=== PATIENT | male | born 1950 | race Caucasian/White ===

== ENCOUNTER 2017-05-28 09:06 | Outpatient (CLI) | payer MEDICARE ==
--- NOTE | 2017-05-28 16:54 | Ultrasound Report ---
AORTA SCREENIN05/28/2017 CLINICAL INDICATION: Smoking history, screening. TECHNIQUE: Real-time sonographic images were performed by the tile professional through the aorta. Multiple containers sales representative static images were saved for review. FINDINGS: The abdominal aorta is normal in caliber, measuring 2.4 cm proximally, 1.9 cm in the mid portion, and 1.9 cm distally. The iliacs are normal in caliber. No free fluid is present. IMPRESSION: NO EVIDENCE OF ABDOMINAL AORTIC ANEURYSM. TD: 05/28/2017 12:10
== END 2017-05-28 09:07 | disposition home or self-care (01) ==
LOC: DI 09:06
PROVIDERS: ATTEND Physician Assistant
DX: Z87.891 Personal history of nicotine dependence (principal); Z13.89 Encounter for screening for other disorder
CPT/HCPCS: 76706

== ENCOUNTER 2017-06-16 08:04 | Outpatient (CLI) | payer MEDICARE | END 2017-06-16 08:05 | disposition home or self-care (01) | LOC: DI 08:04 | PROVIDERS: ATTEND Physician Assistant | DX: R06.09 Other forms of dyspnea (principal); R07.9 Chest pain, unspecified | CPT/HCPCS: 93306 ==

== ENCOUNTER 2021-04-10 15:26 | Outpatient (CLI) | payer MEDICARE | END 2021-04-10 15:27 | disposition critical access hospital (66) | LOC: EMS 15:26 | DX: R40.0 Somnolence (principal); R53.1 Weakness; R73.9 Hyperglycemia, unspecified; R50.9 Fever, unspecified; R06.9 Unspecified abnormalities of breathing; R14.0 Abdominal distension (gaseous) | CPT/HCPCS: A0425; A0427 ==

== ENCOUNTER 2021-04-10 15:44 | Inpatient (IN) | payer MEDICARE ==
[2021-04-10] MEDS ORDERED: ACETAMINOPHEN 325 MG TABLET PO STA (16:22)
[2021-04-10] MEDS ORDERED: SODIUM CHLORIDE 0.9% 1,000 ML IV STA ×3 (16:22→18:19)
--- NOTE | 2021-04-10 16:25 | ED Physician Documentation ---
History of Present Illness - Stated complaint Stated Complaint: GLF/ N/V/D - Chief complaint Chief Complaint: Fever - History obtained from History obtained from: Patient, EMS - History of Present Illness Timing: How many days ago (3) Pain level max: 0 Pain level now: 0 - Additonal information Additional information: Patient is a 70-year-old male who presents with fever for the past 3 days. He complains of generalized weakness today. He has not had his Covid vaccinations. Mild cough. No vomiting. He denies any diarrhea to me. He is a diabetic and his blood sugar was around 400 today. No abdominal pain, chest pain, headache, neck pain. Has not taken anything for the fever. Decreased appetite recently. Review of Systems Ten Systems: 10 systems reviewed and negative Constitutional: reports: Fever. denies: Chills Ears: denies: Ear pain Nose: denies: Rhinorrhea / runny nose, Congestion GI: denies: Nausea, Vomiting, Diarrhea Skin: denies: Rash Musculoskeletal: denies: Neck pain, Back pain PD PAST MEDICAL HISTORY - Past Medical History Past Medical History: Yes Endocrine/Autoimmune: Type 2 diabetes - Allergies Allergies/Adverse Reactions: Allergies Allergy/AdvReac Type Severity Reaction Status Date / Time No Known Drug Allergies Allergy Verified 04/10/21 15:59 - Living Situation Living Situation: reports: With family Living Arrangement: reports: At home - Social History Does the pt have substance abuse?: No - Family History Family history: reports: Non contributory PD ED PE NORMAL - Vitals Vital signs reviewed: Yes - General General: No acute distress, Well developed/nourished, Other (Patient is intermittently confused, slow to respond.) - HEENT HEENT: PERRL, Ears normal, Moist mucous membranes, Pharynx benign - Neck Neck: Supple, no meningeal sign - Cardiac Cardiac: RRR, Strong equal pulses - Respiratory Respiratory: No respiratory distress, Clear bilaterally - Abdomen Abdomen: Soft, Non tender, Non distended - Back Back: No CVA TTP, No spinal TTP - Derm Derm: Warm and dry - Extremities Extremities: No edema, Other (Slight erythema to the left 5th toe.) - Neuro Neuro: Other (Drowsy, mildly confused) - Psych Psych: Normal mood, Normal affect Results - Vitals Vitals: Vital Signs - 24 hr 04/10/21 04/10/21 04/10/21 15:52 16:00 16:50 Temperature 39.4 C H Heart Rate 110 H 109 H 105 H Respiratory 30 H 22 31 H Rate Blood Pressure 168/73 H 145/114 H 163/119 H O2 Saturation 98 97 98 04/10/21 04/10/21 04/10/21 17:00 17:30 18:30 Temperature 38.3 C H Heart Rate 108 H 92 97 Respiratory 20 31 H 27 H Rate Blood Pressure 148/98 H 156/78 H 126/53 L O2 Saturation 98 94 98 04/10/21 19:22 Temperature 38.8 C H Heart Rate Respiratory Rate Blood Pressure O2 Saturation Oxygen O2 Source Room air - Labs Labs: Laboratory Tests 04/10/21 04/10/21 04/10/21 16:09 16:09 16:09 WBC RBC Hgb Hct MCV MCH MCHC RDW Plt Count MPV Neut # (Auto) Lymph # (Auto) [place] # (Auto) Eos # (Auto) Baso # (Auto) Absolute Nucleated RBC Nucleated RBC % ESR 41 H PT INR APTT Sodium Potassium Chloride Carbon Dioxide Anion Gap BUN Creatinine Estimated GFR (MDRD) Glucose Lactic Acid Calcium Total Bilirubin AST ALT Alkaline Phosphatase C-Reactive Protein 15.2 H Total Protein Albumin Globulin Albumin/Globulin Ratio Lipase TSH 0.46 Urine Color Urine Clarity Urine pH Ur Specific [place] Urine Protein Urine Glucose (UA) Urine Ketones Urine Occult Blood Urine Nitrite Urine Bilirubin Urine Urobilinogen Ur Leukocyte Esterase Ur Microscopic Review Urine Culture Comments Nasal Adenovirus (PCR) Nasal B. parapertussis DNA (PCR) Nasal Coronavir 229E PCR Nasal Coronavir HKU1 PCR Nasal Coronavir NL63 PCR Nasal Coronavir OC43 PCR Nasal Enterovir/Rhinovir PCR Nasal Influenza B PCR Nasal Influenza A PCR Nasal Parainfluen 1 PCR Nasal Parainfluen 2 PCR Nasal Parainfluen 3 PCR Nasal Parainfluen 4 PCR Nasal RSV (PCR) Nasal B.pertussis DNA PCR Nasal C.pneumoniae (PCR) Dilshad Human Metapneumo PCR Nasal M.pneumoniae (PCR) Nasal SARS-CoV-2 (PCR) 04/10/21 04/10/21 04/10/21 16:19 16:19 16:19 WBC 10.4 RBC 4.22 L Hgb 13.5 L Hct 38.5 L MCV 91.2 MCH 32.0 H MCHC 35.1 RDW 12.4 Plt Count 126 L MPV 9.4 Neut # (Auto) 8.9 H Lymph # (Auto) 0.5 L [place] # (Auto) 0.7 Eos # (Auto) 0.2 Baso # (Auto) 0.0 Absolute Nucleated RBC 0.00 Nucleated RBC % 0.0 ESR PT 12.1 INR 1.1 APTT 28.5 Sodium 134 L Potassium 4.1 Chloride 98 L Carbon Dioxide 23 Anion Gap 13.0 BUN 16 Creatinine 1.0 Estimated GFR (MDRD) 74 L Glucose 462 H Lactic Acid Calcium 9.5 Total Bilirubin 0.9 AST 27 ALT 33 Alkaline Phosphatase 74 C-Reactive Protein Total Protein 7.0 Albumin 4.0 Globulin 3.0 Albumin/Globulin Ratio 1.3 Lipase 28 TSH Urine Color Urine Clarity Urine pH Ur Specific [place] Urine Protein Urine Glucose (UA) Urine Ketones Urine Occult Blood Urine Nitrite Urine Bilirubin Urine Urobilinogen Ur Leukocyte Esterase Ur Microscopic Review Urine Culture Comments Nasal Adenovirus (PCR) Nasal B. parapertussis DNA (PCR) Nasal Coronavir 229E PCR Nasal Coronavir HKU1 PCR Nasal Coronavir NL63 PCR Nasal Coronavir OC43 PCR Nasal Enterovir/Rhinovir PCR Nasal Influenza B PCR Nasal Influenza A PCR Nasal Parainfluen 1 PCR Nasal Parainfluen 2 PCR Nasal Parainfluen 3 PCR Nasal Parainfluen 4 PCR Nasal RSV (PCR) Nasal B.pertussis DNA PCR Nasal C.pneumoniae (PCR) Dilshad Human Metapneumo PCR Nasal M.pneumoniae (PCR) Nasal SARS-CoV-2 (PCR) 04/10/21 04/10/21 04/10/21 16:19 16:30 16:59 WBC RBC Hgb Hct MCV MCH MCHC RDW Plt Count MPV Neut # (Auto) Lymph # (Auto) [place] # (Auto) Eos # (Auto) Baso # (Auto) Absolute Nucleated RBC Nucleated RBC % ESR PT INR APTT Sodium Potassium Chloride Carbon Dioxide Anion Gap BUN Creatinine Estimated GFR (MDRD) Glucose Lactic Acid 2.1 Calcium Total Bilirubin AST ALT Alkaline Phosphatase C-Reactive Protein Total Protein Albumin Globulin Albumin/Globulin Ratio Lipase TSH Urine Color YELLOW Urine Clarity CLEAR Urine pH 6.0 Ur Specific [place] 1.015 Urine Protein NEGATIVE Urine Glucose (UA) >=1000 H Urine Ketones 15 H Urine Occult Blood TRACE-INTA Urine Nitrite NEGATIVE Urine Bilirubin NEGATIVE Urine Urobilinogen 0.2 (NORMAL) Ur Leukocyte Esterase NEGATIVE Ur Microscopic Review NOT INDICATED Urine Culture Comments NOT INDICATED Nasal Adenovirus (PCR) NOT DETECTED Nasal B. parapertussis DNA (PCR) NOT DETECTED Nasal Coronavir 229E PCR NOT DETECTED Nasal Coronavir HKU1 PCR NOT DETECTED Nasal Coronavir NL63 PCR NOT DETECTED Nasal Coronavir OC43 PCR NOT DETECTED Nasal Enterovir/Rhinovir PCR NOT DETECTED Nasal Influenza B PCR NOT DETECTED Nasal Influenza A PCR NOT DETECTED Nasal Parainfluen 1 PCR NOT DETECTED Nasal Parainfluen 2 PCR NOT DETECTED Nasal Parainfluen 3 PCR NOT DETECTED Nasal Parainfluen 4 PCR NOT DETECTED Nasal RSV (PCR) NOT DETECTED Nasal B.pertussis DNA PCR NOT DETECTED Nasal C.pneumoniae (PCR) NOT DETECTED Dilshad Human Metapneumo PCR NOT DETECTED Nasal M.pneumoniae (PCR) NOT DETECTED Nasal SARS-CoV-2 (PCR) NOT DETECTED - Rads (name of study) Chest x-ray Radiology: Final report received, EMP read contemporaneously, See rad report (Possible right infrahilar alveolar opacity versus bronchial vascular markings.) PD MEDICAL DECISION MAKING - ED course Complexity details: reviewed results, re-evaluated patient, considered differential, d/w patient ED course: Patient with fever of unclear etiology. Possible pneumonia. He was given oral antibiotics initially, but he is too weak to stand and continues to have confusion. Therefore we will place the patient in observation, give IV fluids and continue antibiotics. Discussed the case with Dr. Panchal, hospitalist who accepts. He request a CT scan of the chest, abdomen and pelvis. This was perfo rmed. Patient does have a slight cellulitis to the left 5th toe. Does not appear significant enough to be causing his systemic symptoms. Concern for potential bacteremia. Blood cultures drawn. Lactate normal. Covid test is negative. This document was made in part using voice recognition software. While efforts are made to proofread this document, sound alike and grammatical errors may occur. Departure - Departure Disposition: ED Place in Observation Clinical Impression: Hyperglycemia, Generalized weakness Pneumonia Qualifiers: Pneumonia type: due to unspecified organism Laterality: right Lung location: lower lobe of lung Qualified Code(s): J18.9 - Pneumonia, unspecified organism Fever Qualifiers: Fever type: unspecified Qualified Code(s): R50.9 - Fever, unspecified Condition: Stable Discharge Date/Time: 04/10/21 20:56
[2021-04-10 16:29] LABS: BASOPHILS % (AUTO) 0.3 %; EOSINOPHILS # (AUTO) 0.2 10^3/uL (0.0-0.7); EOSINOPHILS % (AUTO) 1.6 %; HCT - HEMATOCRIT 38.5 % (42.0-52.0); HGB - HEMOGLOBIN 13.5 g/dL (14.0-18.0); LYMPHOCYTES # (AUTO) 0.5 10^3/uL (1.5-3.5); LYMPHOCYTES % (AUTO) 4.8 %; MEAN CORPUSCULAR HGB CONC 35.1 g/dL (32.0-36.0); MEAN CORPUSCULAR VOLUME 91.2 fL (80.0-94.0); MEAN PLATELET VOLUME 9.4 fL (7.4-11.4); MONOCYTES # (AUTO) 0.7 10^3/uL (0.0-1.0); MONOCYTES % (AUTO) 6.8 %; NEUTROPHILS # (AUTO) 8.9 10^3/uL (1.5-6.6); NEUTROPHILS % (AUTO) 85.6 %; PLT - PLATELET COUNT 126 10^3/uL (130-450); RED BLOOD COUNT 4.22 10^6/uL (4.70-6.10); RED CELL DISTRIBUTION WIDTH 12.4 % (12.0-15.0); WHITE BLOOD COUNT 10.4 x10^3/uL (4.8-10.8)
[2021-04-10 16:34] LABS: INR 1.1 (0.8-1.2); PT - PROTHROMBIN TIME 12.1 secs (9.9-12.6)
[2021-04-10 16:34] LABS: BILIRUBIN,URINE NEGATIVE (NEGATIVE); GLUCOSE, URINE (UA) >=1000 mg/dL (NEGATIVE); KETONES,URINE (UA) 15 mg/dL (NEGATIVE); LEUKOCYTE ESTERASE, URINE NEGATIVE (NEGATIVE); NITRITE,URINE NEGATIVE (NEGATIVE); OCCULT BLOOD,URINE TRACE-INTA (NEGATIVE); PROTEIN,URINE NEGATIVE (NEGATIVE); UROBILINOGEN,URINE 0.2 (NORMAL) E.U./dL (NORMAL)
[2021-04-10 16:37] LABS: CLARITY,URINE CLEAR (CLEAR)
[2021-04-10 16:39] LABS: LACTIC ACID, VENOUS 2.1 mmol/L (0.5-2.2)
[2021-04-10 16:40] LABS: ALBUMIN/GLOBULIN RATIO 1.3 (1.0-2.2); BILIRUBIN,TOTAL 0.9 mg/dL (0.2-1.0); CALCIUM 9.5 mg/dL (8.5-10.3); POTASSIUM 4.1 mmol/L (3.5-5.0)
[2021-04-10 16:41] LABS: PARTIAL THROMBOPLASTIN TIME 28.5 secs (24.9-33.3)
--- NOTE | 2021-04-10 17:02 | XRAY Report ---
PROCEDURE: Chest 1 View X-Ray INDICATIONS: fever. weakness TECHNIQUE: One view of the chest was acquired. COMPARISON: None FINDINGS: Surgical changes and devices: None. Lungs and pleura: No pleural effusions or pneumothorax. Lungs demonstrate slight strandy interstiti al opacity in the right infrahilar area. Mediastinum: Mediastinal contours appear normal. Heart size is normal. Bones and chest wall: No suspicious bony lesions. Overlying soft tissues appear unremarkable. IMPRESSION: Possible right infrahilar alveolar opacity versus bronchial vascular markings. Correlate with auscult ative findings. Reviewed by: Purvi Pierre MD on 04/10/2021 5:01 PM PST Approved by: Purvi Pierre MD on 04/10/2021 5:01 PM PST Station ID: [id number]
[2021-04-10 18:11] LABS: B. PARAPERTUSSIS- RESP PCR PAN NOT DETECTED; B. PERTUSSIS- RESP PCR PANEL NOT DETECTED; C. PNEUMONIAE- RESP PCR PANEL NOT DETECTED; CORONAVIRUS 229E-RESP PCR NOT DETECTED; CORONAVIRUS HKU1-RESP PCR NOT DETECTED; CORONAVIRUS NL63-RESP PCR NOT DETECTED; CORONAVIRUS OC43-RESP PCR NOT DETECTED; HUMAN METAPNEUMOVIRUS NOT DETECTED; INFLUENZA A- RESP PCR PANEL NOT DETECTED; INFLUENZA B - RESP PCR PANEL NOT DETECTED; M. PNEUMONIAE- RESP PCR PANEL NOT DETECTED; PARAINFLUENZA VIRUS 1 NOT DETECTED; PARAINFLUENZA VIRUS 2 NOT DETECTED; PARAINFLUENZA VIRUS 3 NOT DETECTED; PARAINFLUENZA VIRUS 4 NOT DETECTED; RHINOVIRUS/ENTEROVIRUS NOT DETECTED; RSV- RESP PCR PANEL NOT DETECTED; SARS-CoV-2 -RESP PCR PANEL NOT DETECTED
[2021-04-10] MEDS ORDERED: INSULIN REGULAR HUMAN 100 UNIT/1 ML 10 ML MDV SUBQ STA (18:19)
[2021-04-10] MEDS ORDERED: DOXYCYCLINE 100 MG TABLET PO STA (18:49)
[2021-04-10] MEDS ORDERED: AMOX/CLAV 875 MG/125 MG TABLET PO STA (18:49)
[2021-04-10] MEDS ORDERED: ONDANSETRON 4 MG/2 ML VIAL IVP PRN (19:43)
[2021-04-10] MEDS ORDERED: SODIUM CHLORIDE FLUSH 0.9% 10 ML SYRINGE IVP PRN (19:43)
[2021-04-10] MEDS ORDERED: ONDANSETRON ODT 4 MG TABLET TL PRN (19:43)
--- NOTE | 2021-04-10 19:51 | HISTORY & PHYSICAL EXAMINATION ---
Chief Complaint - Chief Complaint Chief Complaint: Fever and weakness History of Present Illness - Admitted From Admitted From:: Home - History Obtained From Records Reviewed: [facility] History obtained from: Patient, Spouse, ER Physician, EMR Exam Limitations: Patient is confused and a poor historian. - History of Present Illness HPI Comment/Other: This is a 70-year-old male with a past medical history significant for type 2 diabetes mellitus who presents today due to weakness and fever. Most of the history is obtained from the patient's spouse as he is altered and unable to provide a meaningful history. She states he has had a wound over his left foot for months now that is being followed by wound care at [facility]. He was scheduled to see them again tomorrow but she noticed that he was becoming weaker over the past 2 days. She states he was himself yesterday but this morning he was quite weak and he slumped to the ground twice. She reports no injuries. She also noticed that he was confused today which is unusual. He is normally quite independent and active. She states he does have diabetes and his blood glucose normally is not very well controlled but the past few days it has been less than 250. He did not take any of his medications today. She reports no smoking or alcohol use. The patient denies shortness of breath, chest pain, abdominal pain, nausea, vomiting. In the emergency department, he was noted to be febrile, tachycardic, tachypneic but not hypoxic. Labs revealed thrombocytopenia but otherwise were unremarkable except for hyperglycemia. X-ray was concerning for possible infiltrate. Given the concern for infection, medicine was consulted for admission. I did discuss goals of care with the patient's spouse given he is altered. She states he has made it quite clear in the past that he is a DNR. History - Past Medical History Cardiovascular: reports: Hypertension Endocrine/Autoimmune: reports: Type 2 diabetes - Family & Social History Family History Comment/Other: Unable to obtain due to his altered mental status. Living arrangement: At home Living Situation: With spouse/s.o. Social History Notes: His reports no alcohol or smoking history. Meds/Allgy - Allergies Allergies/Adverse Reactions: Allergies Allergy/AdvReac Type Severity Reaction Status Date / Time No Known Drug Allergies Allergy Verified 04/10/21 15:59 Review of Systems - Constitutional Constitutional: reports: Fever, Weakness - Cardiovascular Cariovascular: denies: Chest pain - Respiratory Respiratory: denies: Cough, SOB at rest, SOB with exertion - Gastrointestinal Gastrointestinal: denies: Nausea, Vomiting - Musculoskeletal Musculoskeletal: denies: Limited range of motion - Neurological Neurological: reports: General weakness - All Other Systems All Other Systems: reports: Other (Review of systems is limited due to his altered mental status.) Prior Level of Functionality: He is independent with his ADL's. Exam - Vital Signs Reviewed Vital Signs: Yes Vital Signs: Vital Signs x48h Temp Pulse Resp BP Pulse Ox 04/10/21 18:30 38.3 C H 97 27 H 126/53 L 98 04/10/21 17:30 92 31 H 156/78 H 94 04/10/21 17:00 108 H 20 148/98 H 98 04/10/21 16:50 105 H 31 H 163/119 H 98 04/10/21 16:00 109 H 22 145/114 H 97 04/10/21 15:52 39.4 C H 110 H 30 H 168/73 H 98 - Physical Exam General Appearance: positive: Moderate distress, Other (Appears ill and uncomfortable. Occasional rigors and chills noted.) Eyes Bilateral: positive: Conjunctivae nml ENT: positive: Dry mucous membranes. negative: No signs of dehydration Neck: positive: Nml inspection. negative: Stiff neck Respiratory: positive: No respiratory distress, Other (Tachypnic.). negative: Wheezes, Rales Cardiovascular: positive: Tachycardia. negative: Irregularly irregular, Systolic murmur Abdomen: positive: Nml bowel sounds, Tenderness (Mild tenderness but difficult to assess given his mentation.). negative: Guarding, Rebound Skin: positive: Warm, Dry, Other (Mild erythema over left fifth pahlanx. No tenderness. Mild warmth.) Extremities: positive: No pedal edema Neurologic/Psychiatric: positive: Disoriented to time, Other (No focal deficits.). negative: Disoriented to person, Disoriented to place Conclusion/Plan - Problem List (1) Fever Conclusion/Plan: I am concerned for underlying sepsis given his fever, significant weakness, thrombocytopenia. He was also initially tachycardic and tachypneic. His blood pressure is stable and lactic acid is normal. The source of this is not clear. This may potentially be viral but we will need to rule out a bacterial source. Urinalysis is unremarkable. His chest x-ray was read as a possible right-sided infiltrate by radiology but clinically this appears to be less likely and his x- ray does not appear very impressive. We will start him empirically on vancomycin, cefepime, Flagyl IV given rigors and fever as high suspicion for bacteremia. We will check ESR and CRP. We will also order a CT of the chest as well as abdomen/pelvis to look for infection. Qualifiers: Fever type: unspecified Qualified Code(s): R50.9 - Fever, unspecified (2) Altered mental status Conclusion/Plan: This is likely secondary to underlying infection. He is oriented to self and location but is a poor historian and becomes quite fatigued and unable to provide any meaningful history. He does not have any focal deficits on exam. This is likely due to the underlying infection and I will treat him empirically with IV antibiotics. (3) Generalized weakness Conclusion/Plan: This is likely due to the underlying suspected illness given his fever and acute decline over the past few days. We will further evaluate the suspected infection as mentioned above. (4) Wound of left foot Conclusion/Plan: He obtains wound care at [facility] where he was scheduled to follow up tomorrow. Although the toe is erythematous, I do not believe this is the cause of his current infection as it is not very impressive overall. He will be on antibiotics empirically and we will order a foot x-ray for further evaluation. We will consider MRI if there is no other obvious source of infection. (5) Type 2 diabetes mellitus with hyperglycemia Conclusion/Plan: He is hyperglycemic with a blood glucose greater than 400. This is likely exacerbated by the suspected infection. No evidence of ketoacidosis. He received 5 units of subcutaneous insulin in the emergency department. We will give him 15 units of Lantus this evening and place him on 3 units of NovoLog with meals as well as sliding scale. Carb controlled diet. Check A1c in the morning. Qualifiers: Diabetes mellitus intermediate designer insulin use: without intermediate designer use Qualified Code(s): E11.65 - Type 2 diabetes mellitus with hyperglycemia - Lab Results Lab results reviewed: Yes Fish Bones: 04/11/21 05:53 04/11/21 05:53 - Diagnostic Imaging Results Diagnostic Imaging Results: positive: Final report reviewed Core Measures - Anticipated LOS I expect patient to be DC'd or transferred within 96 hours.: Yes - Issues Hospital Issues and Management Plan: 70-year-old male with type 2 diabetes mellitus who presents due to increasing weakness and fever will be admitted under observation for further work-up as the concern is for sepsis. - DVT/VTE - Prophylaxis VTE/DVT Device ordered at admit?: Yes VTE/DVT Prophylaxis med ordered at admit?: Yes
[2021-04-10] MEDS ORDERED: IOVERSOL 320 100 ML VIAL IVP ONE ×2 (20:39→21:18)
[2021-04-10] MEDS ORDERED: VANCOMYCIN INJ 2 GM in SODIUM CHLORIDE 0.9% 500 ML IV ONE (21:00)
[2021-04-10] MEDS: LACTATED RINGERS 1,000 ML IV SCH (21:25)
[2021-04-10] MEDS: CEFEPIME 2 GM in SODIUM CHLORIDE 0.9% MINIBAG 100 ML IV SCH (21:25)
--- NOTE | 2021-04-10 21:27 | CT Report ---
PROCEDURE: CHEST W INDICATIONS: fever, possible pneumonia on cxr CONTRAST: IV CONTRAST: Optiray 320 ml: 100 PO CONTRAST: *NO PO CONTRAST TECHNIQUE: After the administration of intravenous contrast, 1 mm axial images were acquired from the pulmonary apices through the posterior costophrenic angles. Axial 5 mm soft tissue kernel reconstructions were performed as well as 8 mm axial MIP and coronal and sagittal 5 mm reformations. For radiation dose reduction, the following was used: automated exposure control, adjustment of mA and/or kV according to patient size. COMPARISON: Chest x-ray dated 04/10/2021. FINDINGS: Image quality: Excellent. Lungs and pleura: No acute air space opacities. No pleural effusions or pneumothorax. Central and peripheral airways are patent and normal in caliber. Mediastinum: Heart size is normal. Severe calcification of the coronary vasculature. No pericardial effusion. No mediastinal or hilar adenopathy by size criteria. Thoracic aorta and central pulmonar y arteries are normal in size. Esophagus is normal in caliber. No hiatal hernia. Bones and chest wall: No suspicious bony lesions. No vertebral body compression fractures. No axil omari or supraclavicular adenopathy by size criteria. The thyroid is normal in size and there are no incidental findings.. Abdomen: Visualized upper abdominal solid organs appear normal. Upper abdominal bowel loops are nor mal in caliber. IMPRESSION: 1. No acute process. 2. Coronary artery disease. Reviewed by: Kingsley Cyr MD on 04/10/2021 9:26 PM PST Approved by: Kingsley Cyr MD on 04/10/2021 9:26 PM PST Station ID: [id number]
--- NOTE | 2021-04-10 21:28 | CT Report ---
PROCEDURE: Abdomen/Pelvis W INDICATIONS: fever, diarrhea CONTRAST: IV CONTRAST: Optiray 320 ml: 100 PO CONTRAST: *NO PO CONTRAST TECHNIQUE: After the administration of IV contrast, 5 mm thick sections acquired from the diaphragms to the symp hysis. 5 mm thick coronal and sagittal reformats were acquired. For radiation dose reduction, the f ollowing was used: automated exposure control, adjustment of mA and/or kV according to patient size. COMPARISON: None. FINDINGS: Image quality: Excellent. ABDOMEN: Lung bases: Lung bases are clear. Heart size is normal. Solid organs: Liver and spleen are normal in size and enhancement. Gallbladder is within normal pérez its Biliary system is non dilated. Pancreas enhances normally. No adrenal nodules. Kidneys demons trate normal size and enhancement, without hydronephrosis. Peritoneum and bowel: Bowel loops demonstrate normal wall thickness and caliber. No free fluid or a ir. Appendix not seen. No evidence of appendicitis. Nodes and vessels: No retroperitoneal or mesenteric adenopathy by size criteria. Aorta and inferior vena cava are normal in size. Miscellaneous: No ventral hernias. PELVIS: Genitourinary: Bladder wall thickness is normal. Miscellaneous: No inguinal hernias or adenopathy. Bones: No suspicious bony lesions. No vertebral body compression fractures. IMPRESSION: 1. No acute process. 2. Appendix not seen. No evidence of appendicitis. Reviewed by: Kingsley Cyr MD on 04/10/2021 9:27 PM [facility] Approved by: Kingsley Cyr MD on 04/10/2021 9:27 PM [facility] Station ID: [id number]
[2021-04-10] MEDS: INSULIN ASPART 300 UNIT/3 ML PEN SUBQ SCH (22:12)
[2021-04-10] MEDS: INSULIN GLARGINE 300 UNIT/3 ML PEN SUBQ SCH (22:13)
[2021-04-10] MEDS: metroNIDAZOLE 500 MG/100 ML 500 MG/100 ML BAG IV SCH (22:17)
[2021-04-11] MEDS: ACETAMINOPHEN 325 MG TABLET PO PRN ×2 (00:34→05:29)
[2021-04-11] MEDS: SODIUM CHLORIDE FLUSH 0.9% 10 ML SYRINGE IVP SCH ×4 (01:23→23:28)
[2021-04-11] MEDS: CEFEPIME 2 GM in SODIUM CHLORIDE 0.9% MINIBAG 100 ML IV SCH ×3 (05:35→21:32)
[2021-04-11 06:07] LABS: BASOPHILS % (AUTO) 0.3 %; CALCIUM 8.5 mg/dL (8.5-10.3); HCT - HEMATOCRIT 37.2 % (42.0-52.0); HGB - HEMOGLOBIN 12.6 g/dL (14.0-18.0); LYMPHOCYTES % (AUTO) 9.5 %; MEAN CORPUSCULAR HEMOGLOBIN 31.3 pg (27.0-31.0); MEAN CORPUSCULAR HGB CONC 33.9 g/dL (32.0-36.0); MEAN CORPUSCULAR VOLUME 92.5 fL (80.0-94.0); MEAN PLATELET VOLUME 9.5 fL (7.4-11.4); NEUTROPHILS % (AUTO) 81.9 %; PLT - PLATELET COUNT 116 10^3/uL (130-450); POTASSIUM 3.7 mmol/L (3.5-5.0); RED BLOOD COUNT 4.02 10^6/uL (4.70-6.10); RED CELL DISTRIBUTION WIDTH 12.8 % (12.0-15.0); WHITE BLOOD COUNT 8.6 x10^3/uL (4.8-10.8)
[2021-04-11 06:10] LABS: ABNORMAL LYMPHS % (MANUAL) 0 %
[2021-04-11] MEDS: metroNIDAZOLE 500 MG/100 ML 500 MG/100 ML BAG IV SCH (06:14)
[2021-04-11 06:25] LABS: BAND NEUTROPHILS % (MANUAL) 9 %; DIFFERENTIAL COMMENT MANUAL DIFFERENTIAL; LYMPHOCYTES # (MANUAL) 0.3 10^3/uL (1.5-3.5); LYMPHOCYTES % (MANUAL) 4 %; MONOCYTES # (MANUAL) 0.6 10^3/uL (0.0-1.0); NEUTROPHILS # (MANUAL) 7.7 10^3/uL (1.5-6.6); PLATELET ESTIMATE, MANUAL DECREASED (<130,000) (NORMAL); RBC MORPHOLOGY (MULTIPLE) NORMAL APPEARANCE (NORMAL)
[2021-04-11] MEDS: INSULIN ASPART 300 UNIT/3 ML PEN SUBQ SCH ×7 (07:46→21:33)
[2021-04-11] MEDS: ENOXAPARIN 40 MG/0.4 ML SYRINGE SUBQ SCH (08:09)
--- NOTE | 2021-04-11 08:23 | PROVIDER PROGRESS NOTE ---
Subjective - Prog Note Date Prog Note Date: 04/11/21 Prog Note Time: 18:00 - Subjective Pt reports feeling: Improved Subjective: Patient reports that he is feeling much better. He says that he felt very weak yesterday and this morning but this has improved significantly and he has been up and moving around this afternoon. He denies recent cough, sore throat or shortness of breath. He denies abdominal pain, nausea, vomiting or diarrhea. He has had a runny nose but says that he always has this. He denies pain or lesions besides the callus on his toe which he reports looks much better. He does report a fracture on his left second toe a while ago but denies any other trauma. He has a mild headache but reports that this is from a lack of caffeine, he normal drinks diet Dr. Staton every day. Current Medications - Current Medications Current Medications: Active Medications Acetaminophen (Acetaminophen 325 Mg Tablet) 650 mg PO Q4HR PRN PRN Reason: Pain 1 to 4 Last Admin: 04/11/21 05:29 Dose: 650 mg Enoxaparin Sodium (Enoxaparin 40 Mg/0.4 Ml Syringe) 40 mg SUBQ DAILY [facility] Last Admin: 04/11/21 08:09 Dose: 40 mg Cefepime HCl 2 gm/ Sodium (Chloride) 100 mls @ 200 mls/hr IV TID [facility] Last Admin: 04/11/21 14:02 Dose: 200 mls/hr Vancomycin HCl 1 gm/Vancomycin HCl 250 mg/ Sodium Chloride 250 mls @ 167 mls/hr IV Q12H [facility] Last Infusion: 04/11/21 13:50 Dose: Infused Insulin Aspart (Insulin Aspart 300 Unit/3 Ml Pen) 1 - 9 unit SUBQ 0800,12 00,1700,2100 [facility]; Protocol Last Admin: 04/11/21 12:12 Dose: 5 unit Insulin Aspart (Insulin Aspart 300 Unit/3 Ml Pen) 3 unit SUBQ TIDWM [facility]; Protocol Last Admin: 04/11/21 12:12 Dose: 3 unit Insulin Glargine (Insulin Glargine 300 Unit/3 Ml Pen) 15 unit SUBQ QPM [facility] Last Admin: 04/10/21 22:13 Dose: 15 unit Ondansetron HCl (Ondansetron Odt 4 Mg Tablet) 4 mg TL Q6HR PRN PRN Reason: Nausea / Vomiting Ondansetron HCl (Ondansetron 4 Mg/2 Ml Vial) 4 mg IVP Q6HR PRN PRN Reason: Nausea / Vomiting Sodium Chloride (Sodium Chloride Flush 0.9% 10 Ml Syringe) 10 ml IVP PRN PRN PRN Reason: NEEDED PER PROVIDER ORDERS Sodium Chloride (Sodium Chloride Flush 0.9% 10 Ml Syringe) 10 ml IVP 0100,0900,1700 [facility] Last Admin: 04/11/21 07:46 Dose: Not Given Objective - Vital Signs/Intake & Output Reviewed Vital Signs: Yes Vital Signs: Vital Signs x48h Temp Pulse Pulse Resp BP Pulse Ox 04/11/21 07:41 37.6 C 74 20 119/63 96 04/11/21 06:44 37.0 C 04/11/21 05:00 37.9 C 80 18 154/66 H 95 04/11/21 03:49 37.7 C 04/11/21 02:45 38.1 C H 04/11/21 01:49 38.4 C H 04/11/21 01:00 38.4 C H 94 20 134/82 H 95 Intake & Output: Intake & Output 04/08/21 04/09/21 04/10/21 04/11/21 23:59 23:59 23:59 23:59 Intake Total 2907.5 700 Balance 2907.5 700 - Objective General Appearance: positive: No acute distress, Alert, Other (Well nourished, well developed male who appears stated age. Sitting up in chair.) Eyes Bilateral: positive: Normal inspection, PERRL, Conjunctivae nml ENT: positive: ENT inspection nml, No signs of dehydration Neck: positive: Nml inspection. negative: Lymphadenopathy (R), Lymphadenopathy (L), Stiff neck Respiratory: positive: Chest non-tender, No respiratory distress, Breath sounds nml. negative: Wheezes, Rales, Rhonchi Cardiovascular: positive: Regular rate & rhythm, No murmur, No gallop. negative: Tachycardia Peripheral Pulses: 2+ Radial (R), 2+ Radial (L), 2+ Dorsalis pedis (R), 2+ Dorsalis pedis (L) Abdomen: positive: Non-tender, Nml bowel sounds, No distention Skin: positive: Color nml, No rash, Warm, Dry, Other (Callus on lateral fifth toe. Mild erythema. Varicose veins on bilateral calves.). negative: Diaphoresis, Embolic lesions Extremities: positive: Non-tender, Nml appearance. negative: Joint swelling Neurologic/Psychiatric: positive: Oriented x3, Motor nml. negative: Sensation nml (Diminised sensation in bilateral feet) - Lab Results Fish Bones: 04/11/21 05:53 04/11/21 05:53 Other Labs: Lab Results x24hrs 04/11/21 04/11/21 04/10/21 Range/Units 05:53 05:53 16:59 WBC 8.6 (4.8-10.8) x10^3/uL RBC 4.02 L (4.70-6.10) 10^6/uL Hgb 12.6 L (14.0-18.0) g/dL Hct 37.2 L (42.0-52.0) % MCV 92.5 (80.0-94.0) fL MCH 31.3 H (27.0-31.0) pg MCHC 33.9 (32.0-36.0) g/dL RDW 12.8 (12.0-15.0) % Plt Count 116 L (130-450) 10^3/uL MPV 9.5 (7.4-11.4) fL Neut # (Auto) Not Reportable (1.5-6.6) 10^3/uL Lymph # (Auto) Not Reportable (1.5-3.5) 10^3/uL [place] # (Auto) Not Reportable (0.0-1.0) 10^3/uL Eos # (Auto) Not Reportable (0.0-0.7) 10^3/uL Baso # (Auto) Not Reportable (0.0-0.1) 10^3/uL Absolute Nucleated RBC Not Reportable x10^3/uL Total Counted 100 Band Neuts % (Manual) 9 (0 - 10) % Abnorm Lymph % (Manual) 0 % Nucleated RBC % Not Reportable /100WBC Neutrophils # (Manual) 7.7 H (1.5-6.6) 10^3/uL Lymphocytes # (Manual) 0.3 L (1.5-3.5) 10^3/uL Monocytes # (Manual) 0.6 (0.0-1.0) 10^3/uL Eosinophils # (Manual) 0.0 (0-0.7) 10^3/uL Basophils # (Manual) 0.0 (0-0.1) 10^3/uL Differential Comment MANUAL DIFFERENTIAL Platelet Estimate DECREASED (<130,000) (NORMAL) RBC Morph Micro Appear NORMAL APPEARANCE (NORMAL) ESR (0-20) mm/Hr PT (9.9-12.6) secs INR (0.8-1.2) APTT (24.9-33.3) secs Sodium 137 (135-145) mmol/L Potassium 3.7 (3.5-5.0) mmol/L Chloride 105 (101-111) mmol/L Carbon Dioxide 23 (21-32) mmol/L Anion Gap 9.0 (6-13) BUN 16 (6-20) mg/dL Creatinine 1.0 (0.6-1.2) mg/dL Estimated GFR (MDRD) 74 L (>89) Glucose 240 H (70-100) mg/dL Lactic Acid (0.5-2.2) mmol/L Calcium 8.5 (8.5-10.3) mg/dL Total Bilirubin (0.2-1.0) mg/dL AST (10-42) IU/L ALT (10-60) IU/L Alkaline Phosphatase (42-121) IU/L C-Reactive Protein (0-1.0) mg/dL Total Protein (6.7-8.2) g/dL Albumin (3.2-5.5) g/dL Globulin (2.1-4.2) g/dL Albumin/Globulin Ratio (1.0-2.2) Lipase (22-51) U/L TSH (0.34-5.60) uIU/mL Urine Color Urine Clarity (CLEAR) Urine pH (5.0-7.5) PH Ur Specific [place] (1.002-1.030) Urine Protein (NEGATIVE) mg/dL Urine Glucose (UA) (NEGATIVE) mg/dL Urine Ketones (NEGATIVE) mg/dL Urine Occult Blood (NEGATIVE) Urine Nitrite (NEGATIVE) Urine Bilirubin (NEGATIVE) Urine Urobilinogen (NORMAL) E.U./dL Ur Leukocyte Esterase (NEGATIVE) Ur Microscopic Review Urine Culture Comments Nasal Adenovirus (PCR) NOT DETECTED Nasal B. parapertussis DNA (PCR) NOT DETECTED Nasal Coronavir 229E PCR NOT DETECTED Nasal Coronavir HKU1 PCR NOT DETECTED Nasal Coronavir NL63 PCR NOT DETECTED Nasal Coronavir OC43 PCR NOT DETECTED Nasal Enterovir/Rhinovir PCR NOT DETECTED Nasal Influenza B PCR NOT DETECTED Nasal Influenza A PCR NOT DETECTED Nasal Parainfluen 1 PCR NOT DETECTED Nasal Parainfluen 2 PCR NOT DETECTED Nasal Parainfluen 3 PCR NOT DETECTED Nasal Parainfluen 4 PCR NOT DETECTED Nasal RSV (PCR) NOT DETECTED Nasal B.pertussis DNA PCR NOT DETECTED Nasal C.pneumoniae (PCR) NOT DETECTED Dilshad Human Metapneumo PCR NOT DETECTED Nasal M.pneumoniae (PCR) NOT DETECTED Nasal SARS-CoV-2 (PCR) NOT DETECTED 04/10/21 04/10/21 04/10/21 Range/Units 16:30 16:19 16:19 WBC (4.8-10.8) x10^3/uL RBC (4.70-6.10) 10^6/uL Hgb (14.0-18.0) g/dL Hct (42.0-52.0) % MCV (80.0-94.0) fL MCH (27.0-31.0) pg MCHC (32.0-36.0) g/dL RDW (12.0-15.0) % Plt Count (130-450) 10^3/uL MPV (7.4-11.4) fL Neut # (Auto) (1.5-6.6) 10^3/uL Lymph # (Auto) (1.5-3.5) 10^3/uL [place] # (Auto) (0.0-1.0) 10^3/uL Eos # (Auto) (0.0-0.7) 10^3/uL Baso # (Auto) (0.0-0.1) 10^3/uL Absolute Nucleated RBC x10^3/uL Total Counted Band Neuts % (Manual) (0 - 10) % Abnorm Lymph % (Manual) % Nucleated RBC % /100WBC Neutrophils # (Manual) (1.5-6.6) 10^3/uL Lymphocytes # (Manual) (1.5-3.5) 10^3/uL Monocytes # (Manual) (0.0-1.0) 10^3/uL Eosinophils # (Manual) (0-0.7) 10^3/uL Basophils # (Manual) (0-0.1) 10^3/uL Differential Comment Platelet Estimate (NORMAL) RBC Morph Micro Appear (NORMAL) ESR (0-20) mm/Hr PT (9.9-12.6) secs INR (0.8-1.2) APTT (24.9-33.3) secs Sodium 134 L (135-145) mmol/L Potassium 4.1 (3.5-5.0) mmol/L Chloride 98 L (101-111) mmol/L Carbon Dioxide 23 (21-32) mmol/L Anion Gap 13.0 (6-13) BUN 16 (6-20) mg/dL Creatinine 1.0 (0.6-1.2) mg/dL Estimated GFR (MDRD) 74 L (>89) Glucose 462 H (70-100) mg/dL Lactic Acid 2.1 (0.5-2.2) mmol/L Calcium 9.5 (8.5-10.3) mg/dL Total Bilirubin 0.9 (0.2-1.0) mg/dL AST 27 (10-42) IU/L ALT 33 (10-60) IU/L Alkaline Phosphatase 74 (42-121) IU/L C-Reactive Protein (0-1.0) mg/dL Total Protein 7.0 (6.7-8.2) g/dL Albumin 4.0 (3.2-5.5) g/dL Globulin 3.0 (2.1-4.2) g/dL Albumin/Globulin Ratio 1.3 (1.0-2.2) Lipase 28 (22-51) U/L TSH (0.34-5.60) uIU/mL Urine Color YELLOW Urine Clarity CLEAR (CLEAR) Urine pH 6.0 (5.0-7.5) PH Ur Specific [place] 1.015 (1.002-1.030) Urine Protein NEGATIVE (NEGATIVE) mg/dL Urine Glucose (UA) >=1000 H (NEGATIVE) mg/dL Urine Ketones 15 H (NEGATIVE) mg/dL Urine Occult Blood [place] (NEGATIVE) Urine Nitrite NEGATIVE (NEGATIVE) Urine Bilirubin NEGATIVE (NEGATIVE) Urine Urobilinogen 0.2 (NORMAL) (NORMAL) E.U./dL Ur Leukocyte Esterase NEGATIVE (NEGATIVE) Ur Microscopic Review NOT INDICATED Urine Culture Comments NOT INDICATED Nasal Adenovirus (PCR) Nasal B. parapertussis DNA (PCR) Nasal Coronavir 229E PCR Nasal Coronavir HKU1 PCR Nasal Coronavir NL63 PCR Nasal Coronavir OC43 PCR Nasal Enterovir/Rhinovir PCR Nasal Influenza B PCR Nasal Influenza A PCR Nasal Parainfluen 1 PCR Nasal Parainfluen 2 PCR Nasal Parainfluen 3 PCR Nasal Parainfluen 4 PCR Nasal RSV (PCR) Nasal B.pertussis DNA PCR Nasal C.pneumoniae (PCR) Dilshad Human Metapneumo PCR Nasal M.pneumoniae (PCR) Nasal SARS-CoV-2 (PCR) 04/10/21 04/10/21 04/10/21 Range/Units 16:19 16:19 16:09 WBC 10.4 (4.8-10.8) x10^3/uL RBC 4.22 L (4.70-6.10) 10^6/uL Hgb 13.5 L (14.0-18.0) g/dL Hct 38.5 L (42.0-52.0) % MCV 91.2 (80.0-94.0) fL MCH 32.0 H (27.0-31.0) pg MCHC 35.1 (32.0-36.0) g/dL RDW 12.4 (12.0-15.0) % Plt Count 126 L (130-450) 10^3/uL MPV 9.4 (7.4-11.4) fL Neut # (Auto) 8.9 H (1.5-6.6) 10^3/uL Lymph # (Auto) 0.5 L (1.5-3.5) 10^3/uL [place] # (Auto) 0.7 (0.0-1.0) 10^3/uL Eos # (Auto) 0.2 (0.0-0.7) 10^3/uL Baso # (Auto) 0.0 (0.0-0.1) 10^3/uL Absolute Nucleated RBC 0.00 x10^3/uL Total Counted Band Neuts % (Manual) (0 - 10) % Abnorm Lymph % (Manual) % Nucleated RBC % 0.0 /100WBC Neutrophils # (Manual) (1.5-6.6) 10^3/uL Lymphocytes # (Manual) (1.5-3.5) 10^3/uL Monocytes # (Manual) (0.0-1.0) 10^3/uL Eosinophils # (Manual) (0-0.7) 10^3/uL Basophils # (Manual) (0-0.1) 10^3/uL Differential Comment Platelet Estimate (NORMAL) RBC Morph Micro Appear (NORMAL) ESR 41 H (0-20) mm/Hr PT 12.1 (9.9-12.6) secs INR 1.1 (0.8-1.2) APTT 28.5 (24.9-33.3) secs Sodium (135-145) mmol/L Potassium (3.5-5.0) mmol/L Chloride (101-111) mmol/L Carbon Dioxide (21-32) mmol/L Anion Gap (6-13) BUN (6-20) mg/dL Creatinine (0.6-1.2) mg/dL Estimated GFR (MDRD) (>89) Glucose (70-100) mg/dL Lactic Acid (0.5-2.2) mmol/L Calcium (8.5-10.3) mg/dL Total Bilirubin (0.2-1.0) mg/dL AST (10-42) IU/L ALT (10-60) IU/L Alkaline Phosphatase (42-121) IU/L C-Reactive Protein (0-1.0) mg/dL Total Protein (6.7-8.2) g/dL Albumin (3.2-5.5) g/dL Globulin (2.1-4.2) g/dL Albumin/Globulin Ratio (1.0-2.2) Lipase (22-51) U/L TSH (0.34-5.60) uIU/mL Urine Color Urine Clarity (CLEAR) Urine pH (5.0-7.5) PH Ur Specific [place] (1.002-1.030) Urine Protein (NEGATIVE) mg/dL Urine Glucose (UA) (NEGATIVE) mg/dL Urine Ketones (NEGATIVE) mg/dL Urine Occult Blood (NEGATIVE) Urine Nitrite (NEGATIVE) Urine Bilirubin (NEGATIVE) Urine Urobilinogen (NORMAL) E.U./dL Ur Leukocyte Esterase (NEGATIVE) Ur Microscopic Review Urine Culture Comments Nasal Adenovirus (PCR) Nasal B. parapertussis DNA (PCR) Nasal Coronavir 229E PCR Nasal Coronavir HKU1 PCR Nasal Coronavir NL63 PCR Nasal Coronavir OC43 PCR Nasal Enterovir/Rhinovir PCR Nasal Influenza B PCR Nasal Influenza A PCR Nasal Parainfluen 1 PCR Nasal Parainfluen 2 PCR Nasal Parainfluen 3 PCR Nasal Parainfluen 4 PCR Nasal RSV (PCR) Nasal B.pertussis DNA PCR Nasal C.pneumoniae (PCR) Dilshad Human Metapneumo PCR Nasal M.pneumoniae (PCR) Nasal SARS-CoV-2 (PCR) 04/10/21 04/10/21 Range/Units 16:09 16:09 WBC (4.8-10.8) x10^3/uL RBC (4.70-6.10) 10^6/uL Hgb (14.0-18.0) g/dL Hct (42.0-52.0) % MCV (80.0-94.0) fL MCH (27.0-31.0) pg MCHC (32.0-36.0) g/dL RDW (12.0-15.0) % Plt Count (130-450) 10^3/uL MPV (7.4-11.4) fL Neut # (Auto) (1.5-6.6) 10^3/uL Lymph # (Auto) (1.5-3.5) 10^3/uL [place] # (Auto) (0.0-1.0) 10^3/uL Eos # (Auto) (0.0-0.7) 10^3/uL Baso # (Auto) (0.0-0.1) 10^3/uL Absolute Nucleated RBC x10^3/uL Total Counted Band Neuts % (Manual) (0 - 10) % Abnorm Lymph % (Manual) % Nucleated RBC % /100WBC Neutrophils # (Manual) (1.5-6.6) 10^3/uL Lymphocytes # (Manual) (1.5-3.5) 10^3/uL Monocytes # (Manual) (0.0-1.0) 10^3/uL Eosinophils # (Manual) (0-0.7) 10^3/uL Basophils # (Manual) (0-0.1) 10^3/uL Differential Comment Platelet Estimate (NORMAL) RBC Morph Micro Appear (NORMAL) ESR (0-20) mm/Hr PT (9.9-12.6) secs INR (0.8-1.2) APTT (24.9-33.3) secs Sodium (135-145) mmol/L Potassium (3.5-5.0) mmol/L Chloride (101-111) mmol/L Carbon Dioxide (21-32) mmol/L Anion Gap (6-13) BUN (6-20) mg/dL Creatinine (0.6-1.2) mg/dL Estimated GFR (MDRD) (>89) Glucose (70-100) mg/dL Lactic Acid (0.5-2.2) mmol/L Calcium (8.5-10.3) mg/dL Total Bilirubin (0.2-1.0) mg/dL AST (10-42) IU/L ALT (10-60) IU/L Alkaline Phosphatase (42-121) IU/L C-Reactive Protein 15.2 H (0-1.0) mg/dL Total Protein (6.7-8.2) g/dL Albumin (3.2-5.5) g/dL Globulin (2.1-4.2) g/dL Albumin/Globulin Ratio (1.0-2.2) Lipase (22-51) U/L TSH 0.46 (0.34-5.60) uIU/mL Urine Color Urine Clarity (CLEAR) Urine pH (5.0-7.5) PH Ur Specific [place] (1.002-1.030) Urine Protein (NEGATIVE) mg/dL Urine Glucose (UA) (NEGATIVE) mg/dL Urine Ketones (NEGATIVE) mg/dL Urine Occult Blood (NEGATIVE) Urine Nitrite (NEGATIVE) Urine Bilirubin (NEGATIVE) Urine Urobilinogen (NORMAL) E.U./dL Ur Leukocyte Esterase (NEGATIVE) Ur Microscopic Review Urine Culture Comments Nasal Adenovirus (PCR) Nasal B. parapertussis DNA (PCR) Nasal Coronavir 229E PCR Nasal Coronavir HKU1 PCR Nasal Coronavir NL63 PCR Nasal Coronavir OC43 PCR Nasal Enterovir/Rhinovir PCR Nasal Influenza B PCR Nasal Influenza A PCR Nasal Parainfluen 1 PCR Nasal Parainfluen 2 PCR Nasal Parainfluen 3 PCR Nasal Parainfluen 4 PCR Nasal RSV (PCR) Nasal B.pertussis DNA PCR Nasal C.pneumoniae (PCR) Dilshad Human Metapneumo PCR Nasal M.pneumoniae (PCR) Nasal SARS-CoV-2 (PCR) - Diagnostic Imaging Diagnostic Imaging Results: positive: See rad report Diagnostic Imaging Comments: X-ray shows fracture deformity of the second proximal phalange. ABX Reporting Has patient been on IV antibiotics over the past 48 hours?: Yes Sepsis Event Note (H) - Evaluation Current Stage of Sepsis: Resolved Possible source of Sepsis: positive: Unknown Assessment/Plan - Problem List (1) Streptococcal bacteremia Impression: He initially presented with fever, confusion, tachycardia, tachypnea and weakness. This seems to have resolved today, vitals are stable. CRP elevated at 15.2. Blood cultures grew strep pyogenes. We are treating with IV vancomyacin and cefapime and will adjust accordingly when the sensitivity comes back. The source of this infection remains unclear. He has poorly controlled diabetes with a chronic callous on his toe that is being treated by wound care. However, there is only mild erythema and no fluctuance or drainage to indicate an acute infection. He does not have any other lesions or trauma. He does not have any URI symptoms, lungs are clear and chest CT shows no pneumonia. UA shows no UTI. The patient denies pain anywhere to indicate osteomyelitis or septic arthritis and he has no meningeal symptoms. He denies recent travel. He denies recent dental work or IV drug use and he has no embolic lesions. I did not appreciate a murmur on physical exam but we are still concerned for endocarditis so we obtained a transthoracic echo today which was unremarkable. We will consider a tranesophageal echo but this is unavailable at our facility so he would need to be transferred. (2) Altered mental status Impression: Patient presented to the ED yesterday confused but this seems to have resolved today. He is alert and oriented x3 (3) Generalized weakness Impression: Likely secondary to bacteremia. This seems to have resolved today follow antibiotic therapy. (4) Wound of left foot Impression: He obtains weekly wound care at [facility] where he was scheduled to follow up today. X-ray shows fracture deformity of the left second proximal phalange. However, there are no clear signs of infection or deformity near the wound site on the fifth palange. Externally, the wound appears to be healing well at this time and though mildly erythemaous, it is unlikely to be the source of the infection as there is no fluctuance, edema or drainage. (5) Type 2 diabetes mellitus with hyperglycemia Impression: Glucose today 240, A1c 11.1%. Patient reports that this is down from his previous A1c of 15%. His poorly controlled diabetes is likely the cause of diminished sensation in his feet and chronic wound on toe. He is on metformin and glipizide at home. He is receiving Lantus and NovoLog via sliding scale during his admission. 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
[2021-04-11] MEDS ORDERED: VANCOMYCIN INJ 1.25 GM in SODIUM CHLORIDE 0.9% 250 ML IV SCH (09:00)
--- NOTE | 2021-04-11 09:24 | XRAY Report ---
PROCEDURE: Foot 3 View LT INDICATIONS: Left foot wound. Pain. Fever. TECHNIQUE: 4 views of the foot were acquired. COMPARISON: None. FINDINGS: BONES: Fracture deformity with callus remission of the second proximal phalanx. The remaining visuali zed osseous structures appear maintained. Small calcaneal enthesophytes. SOFT TISSUES: Edema of the second digit. IMPRESSION: 1.Fracture deformity of the second proximal phalange. An infectious process cannot be excluded. Reviewed by: Melvin Barfield MD on 04/11/2021 9:22 AM [facility] Approved by: Melvin Barfield MD on 04/11/2021 9:22 AM [facility] Station ID: [id number]
[2021-04-11] MEDS: LACTATED RINGERS 1,000 ML IV SCH (09:55)
--- NOTE | 2021-04-11 11:16 | PHARMACY PROGRESS NOTE ---
- Therapy Status Vancomycin regimen day #: 1 (2G started 04/10 @2300) Therapy status: Awaiting steady state Basis for treatment: Empirical Treatment indication: Bacteremia; hx of active diabetic foot wound, followed by outpatient Trough goal: 15-20 Concurrent antibiotics: Cefepime 2G Q24H - INGE Risk Risk level for Acute Kidney Injury: High Acute Kidney Injury risk factors: Baseline CrCl <50, Wt >100kg or BMI >40, Goal trough >15, Diabetes - Monitoring and Recommendation Clinical response to treatment: I&O Previous 24 hours 04/09/21 04/10/21 04/11/21 23:59 23:59 23:59 Intake Total 2907.5 2050.0 Balance 2907.5 2050.0 Lab Results 04/11/21 04/10/21 04/10/21 05:53 16:19 16:09 ESR 41 H BUN 16 16 Creatinine 1.0 1.0 Estimated GFR (MDRD) 74 L 74 L Cultures 04/10/21 16:19 Blood - Left Hand Blood Culture (PCR) - Final 04/10/21 16:19 Blood - Left Hand Blood Culture - Preliminary Monitoring plan: Daily serum creatinine (Vanco trough 04/12/21 @11:30 ordered.)
[2021-04-11 11:31] LABS: ESTIMATED AVERAGE GLUCOSE 275 mg/dL (70-100); HEMOGLOBIN A1c% 11.2 % (4.27-6.07)
[2021-04-11] MEDS: VANCOMYCIN INJ 1 GM, VANCOMYCIN INJ 250 MG in SODIUM CHLORIDE 0.9% 250 ML IV SCH ×2 (12:14→23:28)
--- NOTE | 2021-04-11 16:38 | PHARMACY PROGRESS NOTE ---
- Best Possible Medication History Admit Date and Time: 04/11/21718 Processed by: Pharmacy Medication History completed: Yes Patient Interview: Completed Secondary Source(s): Insurance records As the person ultimately responsible for medication therapy, providers are able to order a medication from an existing home medication list in [facility] via the "Reconcile Routine" prior to Confirmation of that medication by support team assoc. Such practice is discouraged except when the physician, in their clinical judgment, deems that a medical need exists for a medication without regard to previous use.
[2021-04-11] MEDS: INSULIN GLARGINE 300 UNIT/3 ML PEN SUBQ SCH (21:34)
[2021-04-12] MEDS: CEFEPIME 2 GM in SODIUM CHLORIDE 0.9% MINIBAG 100 ML IV SCH ×3 (05:20→21:44)
[2021-04-12 05:43] LABS: BASOPHILS % (AUTO) 0.3 %; EOSINOPHILS % (AUTO) 0.3 %; HCT - HEMATOCRIT 32.9 % (42.0-52.0); HGB - HEMOGLOBIN 11.2 g/dL (14.0-18.0); LYMPHOCYTES # (AUTO) 0.9 10^3/uL (1.5-3.5); LYMPHOCYTES % (AUTO) 11.8 %; MEAN CORPUSCULAR HEMOGLOBIN 31.2 pg (27.0-31.0); MEAN CORPUSCULAR VOLUME 91.6 fL (80.0-94.0); MONOCYTES # (AUTO) 0.6 10^3/uL (0.0-1.0); MONOCYTES % (AUTO) 7.8 %; NEUTROPHILS # (AUTO) 5.9 10^3/uL (1.5-6.6); NEUTROPHILS % (AUTO) 78.6 %; PLT - PLATELET COUNT 112 10^3/uL (130-450); RED BLOOD COUNT 3.59 10^6/uL (4.70-6.10); WHITE BLOOD COUNT 7.5 x10^3/uL (4.8-10.8)
[2021-04-12 05:51] LABS: CALCIUM 8.5 mg/dL (8.5-10.3); CREATININE 0.8 mg/dL (0.6-1.2); POTASSIUM 3.7 mmol/L (3.5-5.0)
[2021-04-12] MEDS: INSULIN ASPART 300 UNIT/3 ML PEN SUBQ SCH ×6 (07:54→20:36)
[2021-04-12] MEDS ORDERED: INSULIN ASPART 300 UNIT/3 ML PEN SUBQ SCH (08:00)
[2021-04-12] MEDS: lisinopriL 5 MG TABLET PO SCH (09:36)
[2021-04-12] MEDS: ENOXAPARIN 40 MG/0.4 ML SYRINGE SUBQ SCH (09:37)
[2021-04-12] MEDS: SODIUM CHLORIDE FLUSH 0.9% 10 ML SYRINGE IVP SCH ×2 (09:38→18:02)
[2021-04-12] MEDS: VANCOMYCIN INJ 1 GM, VANCOMYCIN INJ 250 MG in SODIUM CHLORIDE 0.9% 250 ML IV SCH ×2 (11:51→23:58)
--- NOTE | 2021-04-12 12:02 | PROVIDER PROGRESS NOTE ---
Subjective - Prog Note Date Prog Note Date: 04/12/21 Prog Note Time: 11:30 - Subjective Pt reports feeling: Worse Subjective: Patient reports that he feels slightly worse today. Someone who came into his room this morning had on a fragrance that bothered him and he has felt short of breath and nauseous ever since. He has not been eating well but not for lack of appetite. He does not like the food here. He denies chest pain or abdominal pain. He has been up and down to the bathroom today without issue. He feels that his weakness has resolved. Current Medications - Current Medications Current Medications: Active Medications Acetaminophen (Acetaminophen 325 Mg Tablet) 650 mg PO Q4HR PRN PRN Reason: Pain 1 to 4 Last Admin: 04/11/21 05:29 Dose: 650 mg Enoxaparin Sodium (Enoxaparin 40 Mg/0.4 Ml Syringe) 40 mg SUBQ DAILY [facility] Last Admin: 04/12/21 09:37 Dose: 40 mg Cefepime HCl 2 gm/ Sodium (Chloride) 100 mls @ 200 mls/hr IV TID [facility] Last Infusion: 04/12/21 05:55 Dose: Infused Vancomycin HCl 1 gm/Vancomycin HCl 250 mg/ Sodium Chloride 250 mls @ 167 mls/hr IV Q12H [facility] Last Admin: 04/12/21 11:51 Dose: 125 mls/hr Insulin Aspart (Insulin Aspart 300 Unit/3 Ml Pen) 3 unit SUBQ TIDWM [facility]; Protocol Last Admin: 04/12/21 11:55 Dose: 3 unit Insulin Aspart (Insulin Aspart 300 Unit/3 Ml Pen) 3 - 11 unit SUBQ 0800,1200,1700,2100 [facility]; Protocol Last Admin: 04/12/21 11:55 Dose: 5 unit Insulin Glargine (Insulin Glargine 300 Unit/3 Ml Pen) 15 unit SUBQ QPM [facility] Last Admin: 04/11/21 21:34 Dose: 15 unit Lisinopril (Lisinopril 5 Mg Tablet) 10 mg PO DAILY [facility] Last Admin: 04/12/21 09:36 Dose: 10 mg Ondansetron HCl (Ondansetron Odt 4 Mg Tablet) 4 mg TL Q6HR PRN PRN Reason: Nausea / Vomiting Ondansetron HCl (Ondansetron 4 Mg/2 Ml Vial) 4 mg IVP Q6HR PRN PRN Reason: Nausea / Vomiting Sodium Chloride (Sodium Chloride Flush 0.9% 10 Ml Syringe) 10 ml IVP PRN PRN PRN Reason: NEEDED PER PROVIDER ORDERS Sodium Chloride (Sodium Chloride Flush 0.9% 10 Ml Syringe) 10 ml IVP 0100,0900,1700 [facility] Last Admin: 04/12/21 09:38 Dose: Not Given Glipizide [Glipizide Xl] 10 mg PO BID 04/11/21 Lisinopril [Zestril] 10 mg PO DAILY 04/11/21 metFORMIN [Glucophage] 1,000 mg PO BIDWM 04/11/21 Objective - Vital Signs/Intake & Output Reviewed Vital Signs: Yes Vital Signs: Vital Signs x48h Temp Pulse Resp BP Pulse Ox 04/12/21 11:09 36.5 C 75 20 145/69 H 97 04/12/21 07:31 37.8 C 79 20 142/75 H 96 04/12/21 05:04 37.4 C 74 26 H 133/66 H 94 Intake & Output: Intake & Output 04/09/21 04/10/21 04/11/21 04/12/21 23:59 23:59 23:59 23:59 Intake Total 2907.5 4100.0 1062 Output Total 600 Balance 2907.5 4100.0 462 - Objective General Appearance: positive: Alert, Mild distress, Other (Well nourished male sitting up in chair, becomes short of breath with conversation) Eyes Bilateral: positive: Normal inspection ENT: positive: No signs of dehydration. negative: Pharyngeal erythema Neck: positive: Nml inspection. negative: Lymphadenopathy (R), Lymphadenopathy (L), Stiff neck Respiratory: positive: Chest non-tender, Breath sounds nml, Other (Mild tachypnea). negative: Wheezes, Rales Cardiovascular: positive: Regular rate & rhythm, No murmur, No gallop Abdomen: positive: Non-tender, Nml bowel sounds Skin: positive: No rash, Warm, Dry, Other (Mild erythema and callus on left lateral fifth toe. Abraision and mild erythema on left calf. Varicose veins on bilateral calves.). negative: Diaphoresis, Embolic lesions Extremities: positive: No pedal edema, Other (Mild deformity over second left toe at former fracture site). negative: Joint swelling Neurologic/Psychiatric: positive: Oriented x3, Motor nml, Sensory loss (Mild sensory loss bilateral feet). negative: Weakness - Lab Results Fish Bones: 04/12/21 05:06 04/12/21 05:06 Other Labs: Lab Results x24hrs 04/12/21 04/12/21 04/12/21 Range/Units 05:06 05:06 05:06 WBC 7.5 (4.8-10.8) x10^3/uL RBC 3.59 L (4.70-6.10) 10^6/uL Hgb 11.2 L (14.0-18.0) g/dL Hct 32.9 L (42.0-52.0) % MCV 91.6 (80.0-94.0) fL MCH 31.2 H (27.0-31.0) pg MCHC 34.0 (32.0-36.0) g/dL RDW 13.0 (12.0-15.0) % Plt Count 112 L (130-450) 10^3/uL MPV 10.0 (7.4-11.4) fL Neut # (Auto) 5.9 (1.5-6.6) 10^3/uL Lymph # (Auto) 0.9 L (1.5-3.5) 10^3/uL Rankin # (Auto) 0.6 (0.0-1.0) 10^3/uL Eos # (Auto) 0.0 (0.0-0.7) 10^3/uL Baso # (Auto) 0.0 (0.0-0.1) 10^3/uL Absolute Nucleated RBC 0.00 x10^3/uL Nucleated RBC % 0.0 /100WBC Sodium 135 (135-145) mmol/L Potassium 3.7 (3.5-5.0) mmol/L Chloride 102 (101-111) mmol/L Carbon Dioxide 24 (21-32) mmol/L Anion Gap 9.0 (6-13) BUN 22 H (6-20) mg/dL Creatinine 0.8 (0.6-1.2) mg/dL Estimated GFR (MDRD) 95 (>89) Glucose 206 H (70-100) mg/dL Estimat Average Glucose (70-100) mg/dL Hemoglobin A1c % (4.27-6.07) % Calcium 8.5 (8.5-10.3) mg/dL C-React Prot High Sens 237.4 mg/L 04/11/21 Range/Units 05:53 WBC (4.8-10.8) x10^3/uL RBC (4.70-6.10) 10^6/uL Hgb (14.0-18.0) g/dL Hct (42.0-52.0) % MCV (80.0-94.0) fL MCH (27.0-31.0) pg MCHC (32.0-36.0) g/dL RDW (12.0-15.0) % Plt Count (130-450) 10^3/uL MPV (7.4-11.4) fL Neut # (Auto) (1.5-6.6) 10^3/uL Lymph # (Auto) (1.5-3.5) 10^3/uL Rankin # (Auto) (0.0-1.0) 10^3/uL Eos # (Auto) (0.0-0.7) 10^3/uL Baso # (Auto) (0.0-0.1) 10^3/uL Absolute Nucleated RBC x10^3/uL Nucleated RBC % /100WBC Sodium (135-145) mmol/L Potassium (3.5-5.0) mmol/L Chloride (101-111) mmol/L Carbon Dioxide (21-32) mmol/L Anion Gap (6-13) BUN (6-20) mg/dL Creatinine (0.6-1.2) mg/dL Estimated GFR (MDRD) (>89) Glucose (70-100) mg/dL Estimat Average Glucose 275 H (70-100) mg/dL Hemoglobin A1c % 11.2 H (4.27-6.07) % Calcium (8.5-10.3) mg/dL C-React Prot High Sens mg/L ABX Reporting Has patient been on IV antibiotics over the past 48 hours?: Yes Sepsis Event Note (H) - Evaluation Current Stage of Sepsis: Resolved Possible source of Sepsis: positive: Unknown Assessment/Plan - Problem List (1) Streptococcal bacteremia Impression: He initially presented with fever, confusion, tachycardia, tachypnea and weakness. This seems to have resolved today, vitals are stable. Blood cultures grew Beta Hemolytic Strep Group C. We are treating with IV vancomyacin and cefapime and will adjust accordingly when the sensitivity comes back. We will also repeat blood culture today. The source of this infection remains unclear. He has poorly controlled diabetes with a chronic callous on his toe that is being treated by wound care. However, there is only mild erythema and no fluctuance or drainage to indicate an acute infection. He does have an abrasion with mild surrounding erythema on his left calf. Also no fluctuance or drainage so unlikely to be the source of infection. No other lesions noted. He does not have any URI symptoms, lungs are clear and chest CT shows no pneumonia. UA shows no UTI. The patient denies pain anywhere to indicate osteomyelitis or septic arthritis and he has no meningeal symptoms. He denies recent travel. He denies recent dental work or IV drug use and he has no embolic lesions. I did not appreciate a murmur on physical exam and transthoracic echo yesterday was unremarkable but we are still concerned for endocarditis We will consider a tranesophageal echo but this is unavailable at our facility so he would need to be transferred. (2) Type 2 diabetes mellitus with hyperglycemia Impression: Glucose 206 today, A1c 11.1%. Patient reports that this is down from his previous A1c of 15%. His poorly controlled diabetes is likely the cause of diminished sensation in his feet and chronic wound on toe. He is on metformin and glipizide at home. He is receiving Lantus and NovoLog via sliding scale during his admission. 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 Externally, the wound appears to be healing well at this time and though mildly erythemaous, it is unlikely to be the source of the infection as there is no fluctuance, edema or drainage. X-ray yesterday also showed no signs of acute infection. (4) Hypertension Impression: Continue usual lisinopril (5) Altered mental status Impression: He was confused upon presentation to the ED but this seems to have resolved. (6) Generalized weakness Impression: He was weak upon presentation to the ED but this seems to have resolved.
[2021-04-12 12:04] LABS: VANCOMYCIN,TROUGH 9.5 ug/mL (10.0-20.0)
[2021-04-12] MEDS: INSULIN GLARGINE 300 UNIT/3 ML PEN SUBQ SCH (20:37)
[2021-04-13] MEDS: SODIUM CHLORIDE FLUSH 0.9% 10 ML SYRINGE IVP SCH ×3 (00:04→16:11)
[2021-04-13 05:20] LABS: BASOPHILS % (AUTO) 0.1 %; EOSINOPHILS % (AUTO) 0.4 %; HCT - HEMATOCRIT 32.7 % (42.0-52.0); HGB - HEMOGLOBIN 10.9 g/dL (14.0-18.0); LYMPHOCYTES # (AUTO) 1.1 10^3/uL (1.5-3.5); LYMPHOCYTES % (AUTO) 15.7 %; MEAN CORPUSCULAR HEMOGLOBIN 30.8 pg (27.0-31.0); MEAN CORPUSCULAR HGB CONC 33.3 g/dL (32.0-36.0); MEAN CORPUSCULAR VOLUME 92.4 fL (80.0-94.0); MEAN PLATELET VOLUME 9.9 fL (7.4-11.4); MONOCYTES # (AUTO) 0.7 10^3/uL (0.0-1.0); MONOCYTES % (AUTO) 10.2 %; NEUTROPHILS # (AUTO) 4.8 10^3/uL (1.5-6.6); NEUTROPHILS % (AUTO) 72.7 %; PLT - PLATELET COUNT 118 10^3/uL (130-450); RED BLOOD COUNT 3.54 10^6/uL (4.70-6.10); WHITE BLOOD COUNT 6.7 x10^3/uL (4.8-10.8)
[2021-04-13 05:45] LABS: CALCIUM 8.3 mg/dL (8.5-10.3); CREATININE 0.8 mg/dL (0.6-1.2); CRP - C-REACTIVE PROTEIN 18.5 mg/dL (0-1.0); POTASSIUM 3.4 mmol/L (3.5-5.0)
[2021-04-13] MEDS: CEFEPIME 2 GM in SODIUM CHLORIDE 0.9% MINIBAG 100 ML IV SCH (05:59)
[2021-04-13] MEDS: INSULIN ASPART 300 UNIT/3 ML PEN SUBQ SCH ×7 (07:53→20:56)
[2021-04-13] MEDS: lisinopriL 5 MG TABLET PO SCH (08:03)
[2021-04-13] MEDS: ENOXAPARIN 40 MG/0.4 ML SYRINGE SUBQ SCH (09:43)
[2021-04-13] MEDS: cefTRIAXone 2 GM in SODIUM CHLORIDE 0.9% MINIBAG 100 ML IV SCH (11:43)
--- NOTE | 2021-04-13 13:59 | PROVIDER PROGRESS NOTE ---
Subjective - Prog Note Date Prog Note Date: 04/13/21 Prog Note Time: 13:56 - Subjective Subjective: he is sad because he is still here. The nausea and fatigue from yesterday is better but he is now upset and lethargic due to his sadness and no access to d iet Dr[place] of which he drinks a lot of during the day. Yesterday we noticed a redness to the left calf where sequential compression device had rubbed against it and compressed it. It has gotten larger between yesterday and today. But he states it is not painful, not red, not hot, and is not bothering him. Current Medications - Current Medications Current Medications: Active Medications Acetaminophen (Acetaminophen 325 Mg Tablet) 650 mg PO Q4HR PRN PRN Reason: Pain 1 to 4 Last Admin: 04/11/21 05:29 Dose: 650 mg Enoxaparin Sodium (Enoxaparin 40 Mg/0.4 Ml Syringe) 40 mg SUBQ DAILY [facility] Last Admin: 04/13/21 09:43 Dose: 40 mg Ceftriaxone Sodium 2 gm/ (Sodium Chloride) 100 mls @ 200 mls/hr IV DAILY [facility] Last Infusion: 04/13/21 12:30 Dose: Infused Insulin Aspart (Insulin Aspart 300 Unit/3 Ml Pen) 3 unit SUBQ TIDWM [facility]; Protocol Last Admin: 04/13/21 11:46 Dose: 3 unit Insulin Aspart (Insulin Aspart 300 Unit/3 Ml Pen) 3 - 11 unit SUBQ 0800,1200,1700,2100 [facility]; Protocol Last Admin: 04/13/21 11:47 Dose: 5 unit Insulin Glargine (Insulin Glargine 300 Unit/3 Ml Pen) 15 unit SUBQ QPM [facility] Last Admin: 04/12/21 20:37 Dose: 15 unit Lisinopril (Lisinopril 5 Mg Tablet) 10 mg PO DAILY [facility] Last Admin: 04/13/21 08:03 Dose: 10 mg Ondansetron HCl (Ondansetron Odt 4 Mg Tablet) 4 mg TL Q6HR PRN PRN Reason: Nausea / Vomiting Ondansetron HCl (Ondansetron 4 Mg/2 Ml Vial) 4 mg IVP Q6HR PRN PRN Reason: Nausea / Vomiting Sodium Chloride (Sodium Chloride Flush 0.9% 10 Ml Syringe) 10 ml IVP PRN PRN PRN Reason: NEEDED PER PROVIDER ORDERS Sodium Chloride (Sodium Chloride Flush 0.9% 10 Ml Syringe) 10 ml IVP 0100,0900,1700 [facility] Last Admin: 04/13/21 07:54 Dose: 10 ml Glipizide [Glipizide Xl] 10 mg PO BID 04/11/21 Lisinopril [Zestril] 10 mg PO DAILY 04/11/21 metFORMIN [Glucophage] 1,000 mg PO BIDWM 04/11/21 Objective - Vital Signs/Intake & Output Reviewed Vital Signs: Yes Vital Signs: Vital Signs x48h Temp Pulse Resp BP Pulse Ox 04/13/21 07:30 37.3 C 71 20 140/72 H 97 Intake & Output: Intake & Output 04/10/21 04/11/21 04/12/21 04/13/21 23:59 23:59 23:59 23:59 Intake Total 2907.5 4100.0 2402 1040 Output Total 600 Balance 2907.5 4100.0 1802 1040 - Objective General Appearance: positive: No acute distress, Alert, Lethargic (or anhedonic and disengaged, I can't tell. He says it is NOT infection or sepsis making him feel this way), Other (Morbidly obese, well-nourished, well-developed white male) Eyes Bilateral: positive: PERRL, EOMI ENT: positive: Pharynx nml Neck: positive: No JVD. negative: Stiff neck Respiratory: positive: No respiratory distress. negative: Wheezes, Rales, Rhonchi Cardiovascular: positive: Regular rate & rhythm. negative: Systolic murmur, Gallop/S4, Friction rub Abdomen: positive: Non-tender, No organomegaly, Nml bowel sounds, No distention Skin: positive: Warm, Dry, Puncture wound (pale, in middle of red L branch but no drainage, heat, fluctuence), Other (The left fifth toe has a lateral callus that is without any redness heat or swelling. The skin over the left branch has a sharp demarcation where the SCDs compressed and bruised the skin. The line is completely sharp and demarcated and encircles the branch medially to the back of the calf.) Extremities: positive: Full ROM, No pedal edema Neurologic/Psychiatric: positive: Oriented x3, CN's nml (2-12), Motor nml. 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) - Lab Results Fish Bones: 04/13/21 04:38 04/13/21 04:38 Other Labs: Lab Results x24hrs 04/13/21 04/13/21 Range/Units 04:38 04:38 WBC 6.7 (4.8-10.8) x10^3/uL RBC 3.54 L (4.70-6.10) 10^6/uL Hgb 10.9 L (14.0-18.0) g/dL Hct 32.7 L (42.0-52.0) % MCV 92.4 (80.0-94.0) fL MCH 30.8 (27.0-31.0) pg MCHC 33.3 (32.0-36.0) g/dL RDW 13.0 (12.0-15.0) % Plt Count 118 L (130-450) 10^3/uL MPV 9.9 (7.4-11.4) fL Neut # (Auto) 4.8 (1.5-6.6) 10^3/uL Lymph # (Auto) 1.1 L (1.5-3.5) 10^3/uL Clinch # (Auto) 0.7 (0.0-1.0) 10^3/uL Eos # (Auto) 0.0 (0.0-0.7) 10^3/uL Baso # (Auto) 0.0 (0.0-0.1) 10^3/uL Absolute Nucleated RBC 0.00 x10^3/uL Nucleated RBC % 0.0 /100WBC Sodium 132 L (135-145) mmol/L Potassium 3.4 L (3.5-5.0) mmol/L Chloride 100 L (101-111) mmol/L Carbon Dioxide 23 (21-32) mmol/L Anion Gap 9.0 (6-13) BUN 22 H (6-20) mg/dL Creatinine 0.8 (0.6-1.2) mg/dL Estimated GFR (MDRD) 95 (>89) Glucose 193 H (70-100) mg/dL Calcium 8.3 L (8.5-10.3) mg/dL C-Reactive Protein 18.5 H (0-1.0) mg/dL ABX Reporting Has patient been on IV antibiotics over the past 48 hours?: Yes Sepsis Event Note (H) - Evaluation Current Stage of Sepsis: Resolved Possible source of Sepsis: positive: Unknown Assessment/Plan - Problem List (1) Streptococcal bacteremia Impression: He initially presented with fever, confusion, tachycardia, tachypnea and weakness. This seems to have resolved by 04/12, vitals are stable. We were treating with IV vancomyacin , flagyle and cefapime and group b strep grew out in a few hours so we stopped flagyl. We have been awaiting sensitivities and it is strep equis and sensitive to ampicillin. Repeat blood cultures done 04/12 are negative The source of this infection remains unclear. He has poorly controlled diabetes with a chronic callous on his toe that is being treated by wound care. However, there is only mild erythema and no fluctuance or drainage to indicate an acute infection. He does have an abrasion with mild surrounding erythema on his left branch/calf. Also no fluctuance or drainage so unlikely to be the source of infection. Is getting larger but the geografic distribution follows the covering of his skin w SCDs. No other lesions noted. He does not have any URI symptoms, lungs are clear and chest CT shows no pneumonia. UA shows no UTI. The patient denies pain anywhere to indicate osteomyelitis or septic arthritis and he has no meningeal symptoms. He denies recent travel. He denies recent dental work or IV drug use and he has no embolic lesions. I did not appreciate a murmur on physical exam and transthoracic echo was unremarkable but we are still concerned for endocarditis We will consider a tranesophageal echo but this is unavailable at our facility so he would need to be transferred. I called [facility] 04/12 and no response. I have called them again today. I will s top vancomycin and cefapime and change to Rocephin for a total of 7 days. (2) Type 2 diabetes mellitus with hyperglycemia Impression: Glucose 193 today, A1c 11.1% on admit. Patient reports that this is down from his previous A1c of 15%. His poorly controlled diabetes is likely the cause of diminished sensation in his feet and chronic wound on toe. He is on metformin and glipizide at home. He is receiving Lantus and NovoLog via sliding scale during his admission. We will order diabetic education for him He is willing to go home on Lantus but readily admits that he is overwhelmed with the idea of pulling insulin into syringes from a vial. As such we will only use Lantus. Start teaching him that today. And he can go home on Lantus with a goal of getting his A1c below 7%. Qualifiers: Diabetes mellitus care home insulin use: without care home use Qualified Code(s): E11.65 - Type 2 diabetes mellitus with hyperglycemia (3) Wound of left foot (callus of L 5th toe) Impression: He obtains weekly wound care at [facility] and will resume this upon discharge. Externally, the 5th toe wound appears to have healed well at this time and though mildly erythemaous, it is unlikely to be the source of the infection as there is no fluctuance, edema or drainage. X-ray yesterday also showed no signs of acute infection. (4) Hypertension Impression: Continue usual lisinopril (5) Altered mental status Impression: He was confused upon presentation to the ED but this seems to have resolved. (6) Generalized weakness Impression: He was weak upon presentation to the ED but this seems to have resolved. He is up in the room. Ambulating slowly to the bathroom and back. Getting up from the chair, getting up from the bed. Slightly shuffling gait.
[2021-04-13] MEDS: INSULIN GLARGINE 300 UNIT/3 ML PEN SUBQ SCH (20:53)
[2021-04-14 05:14] LABS: BASOPHILS % (AUTO) 0.5 %; EOSINOPHILS # (AUTO) 0.1 10^3/uL (0.0-0.7); EOSINOPHILS % (AUTO) 1.8 %; HCT - HEMATOCRIT 35.4 % (42.0-52.0); LYMPHOCYTES # (AUTO) 1.2 10^3/uL (1.5-3.5); MEAN CORPUSCULAR HEMOGLOBIN 30.9 pg (27.0-31.0); MEAN CORPUSCULAR HGB CONC 33.9 g/dL (32.0-36.0); MEAN CORPUSCULAR VOLUME 91.2 fL (80.0-94.0); MEAN PLATELET VOLUME 9.8 fL (7.4-11.4); MONOCYTES # (AUTO) 0.7 10^3/uL (0.0-1.0); MONOCYTES % (AUTO) 11.3 %; NEUTROPHILS # (AUTO) 3.9 10^3/uL (1.5-6.6); NEUTROPHILS % (AUTO) 64.4 %; PLT - PLATELET COUNT 142 10^3/uL (130-450); RED BLOOD COUNT 3.88 10^6/uL (4.70-6.10); RED CELL DISTRIBUTION WIDTH 12.7 % (12.0-15.0); WHITE BLOOD COUNT 6.1 x10^3/uL (4.8-10.8)
[2021-04-14 05:37] LABS: CALCIUM 8.6 mg/dL (8.5-10.3); CREATININE 0.7 mg/dL (0.6-1.2); CRP - C-REACTIVE PROTEIN 19.7 mg/dL (0-1.0); POTASSIUM 3.5 mmol/L (3.5-5.0)
[2021-04-14] MEDS: SODIUM CHLORIDE FLUSH 0.9% 10 ML SYRINGE IVP SCH ×3 (06:56→16:56)
[2021-04-14] MEDS: INSULIN ASPART 300 UNIT/3 ML PEN SUBQ SCH ×7 (07:53→20:47)
[2021-04-14] MEDS: ENOXAPARIN 40 MG/0.4 ML SYRINGE SUBQ SCH (08:01)
[2021-04-14] MEDS: lisinopriL 5 MG TABLET PO SCH (08:01)
[2021-04-14] MEDS: cefTRIAXone 2 GM in SODIUM CHLORIDE 0.9% MINIBAG 100 ML IV SCH (08:01)
--- NOTE | 2021-04-14 13:49 | PROVIDER PROGRESS NOTE ---
Subjective - Prog Note Date Prog Note Date: 04/14/21 Prog Note Time: 14:08 - Subjective Pt reports feeling: Improved Subjective: he is so much more alert, cheerful, and talkative than yesterday. He laughs and tells me it is from having his Dr. Staton. the rash of his L leg has shrunk. He continues to deny pain, heat to that area. No itching. Current Medications - Current Medications Current Medications: Active Medications Acetaminophen (Acetaminophen 325 Mg Tablet) 650 mg PO Q4HR PRN PRN Reason: Pain 1 to 4 Last Admin: 04/11/21 05:29 Dose: 650 mg Enoxaparin Sodium (Enoxaparin 40 Mg/0.4 Ml Syringe) 40 mg SUBQ DAILY [facility] Last Admin: 04/14/21 08:01 Dose: 40 mg Ceftriaxone Sodium 2 gm/ (Sodium Chloride) 100 mls @ 200 mls/hr IV DAILY [facility] Last Infusion: 04/14/21 08:44 Dose: Infused Insulin Aspart (Insulin Aspart 300 Unit/3 Ml Pen) 3 unit SUBQ TIDWM [facility]; Protocol Last Admin: 04/14/21 11:44 Dose: 3 unit Insulin Aspart (Insulin Aspart 300 Unit/3 Ml Pen) 3 - 11 unit SUBQ 0800,1200,1700,2100 [facility]; Protocol Last Admin: 04/14/21 11:44 Dose: 7 unit Insulin Glargine (Insulin Glargine 300 Unit/3 Ml Pen) 18 unit SUBQ QPM [facility] Lisinopril (Lisinopril 5 Mg Tablet) 10 mg PO DAILY [facility] Last Admin: 04/14/21 08:01 Dose: 10 mg Ondansetron HCl (Ondansetron Odt 4 Mg Tablet) 4 mg TL Q6HR PRN PRN Reason: Nausea / Vomiting Ondansetron HCl (Ondansetron 4 Mg/2 Ml Vial) 4 mg IVP Q6HR PRN PRN Reason: Nausea / Vomiting Sodium Chloride (Sodium Chloride Flush 0.9% 10 Ml Syringe) 10 ml IVP PRN PRN PRN Reason: NEEDED PER PROVIDER ORDERS Sodium Chloride (Sodium Chloride Flush 0.9% 10 Ml Syringe) 10 ml IVP 01 00,0900,1700 [facility] Last Admin: 04/14/21 08:02 Dose: 10 ml Glipizide [Glipizide Xl] 10 mg PO BID 04/11/21 Lisinopril [Zestril] 10 mg PO DAILY 04/11/21 metFORMIN [Glucophage] 1,000 mg PO BIDWM 04/11/21 Objective - Vital Signs/Intake & Output Reviewed Vital Signs: Yes Vital Signs: Vital Signs x48h Temp Pulse Resp BP Pulse Ox 04/14/21 07:45 36.7 C 61 18 149/72 H 100 Intake & Output: Intake & Output 04/11/21 04/12/21 04/13/21 04/14/21 23:59 23:59 23:59 23:59 Intake Total 4100.0 2402 1740 1450 Output Total 600 Balance 4100.0 1802 1740 1450 - Objective General Appearance: positive: No acute distress, Alert (much more alert, interactive and we had a long conversation about his life and jobs.) Eyes Bilateral: positive: PERRL, EOMI ENT: positive: Pharynx nml Neck: positive: No JVD. negative: Stiff neck Respiratory: positive: No respiratory distress. negative: Wheezes, Rales, Rhonchi Cardiovascular: positive: Regular rate & rhythm. negative: Gallop/S4, Friction rub Abdomen: positive: Non-tender, No organomegaly, Nml bowel sounds, No distention Skin: positive: Warm, Dry, Other (redness that was on L branch and circled to medial calf and back of calf has shrunk down to 50% of what it was yesterday. Nursing had drawn a black line around the area of redness that I thought was bruise.) Extremities: positive: Full ROM, No pedal edema Neurologic/Psychiatric: positive: Oriented x3, CN's nml (2-12), Motor nml. negative: Sensation nml (dense neuropathy of feet to mid calves) - Lab Results Fish Bones: 04/14/21 04:45 04/14/21 04:45 Other Labs: Lab Results x24hrs 04/14/21 04/14/21 Range/Units 04:45 04:45 WBC 6.1 (4.8-10.8) x10^3/uL RBC 3.88 L (4.70-6.10) 10^6/uL Hgb 12.0 L (14.0-18.0) g/dL Hct 35.4 L (42.0-52.0) % MCV 91.2 (80.0-94.0) fL MCH 30.9 (27.0-31.0) pg MCHC 33.9 (32.0-36.0) g/dL RDW 12.7 (12.0-15.0) % Plt Count 142 (130-450) 10^3/uL MPV 9.8 (7.4-11.4) fL Neut # (Auto) 3.9 (1.5-6.6) 10^3/uL Lymph # (Auto) 1.2 L (1.5-3.5) 10^3/uL [place] # (Auto) 0.7 (0.0-1.0) 10^3/uL Eos # (Auto) 0.1 (0.0-0.7) 10^3/uL Baso # (Auto) 0.0 (0.0-0.1) 10^3/uL Absolute Nucleated RBC 0.00 x10^3/uL Nucleated RBC % 0.0 /100WBC Sodium 133 L (135-145) mmol/L Potassium 3.5 (3.5-5.0) mmol/L Chloride 98 L (101-111) mmol/L Carbon Dioxide 26 (21-32) mmol/L Anion Gap 9.0 (6-13) BUN 18 (6-20) mg/dL Creatinine 0.7 (0.6-1.2) mg/dL Estimated GFR (MDRD) 111 (>89) Glucose 203 H (70-100) mg/dL Calcium 8.6 (8.5-10.3) mg/dL C-Reactive Protein 19.7 H (0-1.0) mg/dL ABX Reporting Has patient been on IV antibiotics over the past 48 hours?: Yes Sepsis Event Note (H) - Evaluation Current Stage of Sepsis: Resolved Possible source of Sepsis: positive: Unknown Assessment/Plan - Problem List (1) Streptococcal bacteremia Impression: He initially presented with fever, confusion, tachycardia, tachypnea and weakness. This seems to have resolved by 3/, vitals are stable. We were treating with IV vancomycin, flagyl and cefapime. Group b strep grew out in a few hours so we stopped flagyl. We have been awaiting sensitivities and it is strep equis and sensitive to ampicillin. Repeat blood cultures done 04/12 are negative The source of this infection remains unclear. He has poorly controlled diabetes with a chronic callous on his toe that is being treated by wound care. However, there is only mild erythema and no fluctuance or drainage to indicate an acute infection. He does have an abrasion with mild surrounding erythema on his left branch/calf. But no fluctuance or drainage so I thought unlikely to be the source of infection. It was getting larger 04/13 but the geographic distribution follows the covering of his skin w SCDs. That has improved today and 50% smaller than yesterday so now I am wondering if it was a small area of cellulitis since it has shrunk so quickly. A bruise or rash would not? No other lesions noted. In looking for other causes of Strep, he does not have any URI symptoms, lungs are clear and chest CT shows no pneumonia. UA shows no UTI. The patient denies pain anywhere to indicate osteomyelitis or septic arthritis and he has no meningeal symptoms. He denies recent travel. He denies recent dental work or IV drug use and he has no embolic lesions. I did not appreciate a murmur on physical exam and transthoracic echo was unremarkable but we are still concerned for endocarditis We have considered a tranesophageal echo but repeat blood cultures have been negative so I don't feel he needs one. I called [facility] ID 04/12 and 04/13 and no response. I stopped the vancomycin and flagyl 04/13 and switched to rocephin and he has really improved on exam. Today L calf rash almost all resolved and he feels so much better mentally and looks stable. Mentation has improved but he says it is because he now has his Dr. Staton. Plan to continue rocephin until 04/16 and then he can go home. (2) Type 2 diabetes mellitus with hyperglycemia Impression: Glucose 203 today, A1c 11.1% on admit. Patient reports that this is down from his previous A1c of 15%. His poorly controlled diabetes is likely the cause of diminished sensation in his feet and chronic wound on toe. He is on metformin and glipizide at home. He is receiving Lantus and NovoLog via sliding scale during his admission. We have ordered diabetic education for him in the outpatient setting. He is willing to go home on Lantus but readily admits that he is overwhelmed with the idea of pulling insulin into syringes from a vial. His glucose consistently is in the 200s by later in the day. In the morning he is 198, 191, 180. Lantus is being given at night. Will increase dose from 15 to 18 units. As such we will only use Lantus Pen. Started teaching him that 04/13. And he can go home on Lantus with a goal of getting his A1c below 7%. Qualifiers: Diabetes mellitus exterminator helper insulin use: without long-term use Qualified Code(s): E11.65 - Type 2 diabetes mellitus with hyperglycemia (3) Wound of left foot (callus of L 5th toe) Impression: He obtains weekly wound care at [facility] and will resume this upon discharge. Externally, the 5th toe wound appears to have healed well at this time and though mildly erythemaous, it is unlikely to be the source of the infection as there is no fluctuance, edema or drainage. X-ray also showed no signs of acute infection. (4) Hypertension Impression: Continue usual lisinopril (5) Altered mental status Impression: He was confused upon presentation to the ED but this seems to have resolved. Especially with his Dr. Staton that started last night. (6) Generalized weakness Impression: He was weak upon presentation to the ED but this seems to have resolved. He is up in the room. Ambulating slowly to the bathroom and back. Getting up from the chair, getting up from the bed. Slightly shuffling gait.
[2021-04-14] MEDS ORDERED: INSULIN GLARGINE 300 UNIT/3 ML PEN SUBQ SCH (21:00)
[2021-04-15] MEDS: SODIUM CHLORIDE FLUSH 0.9% 10 ML SYRINGE IVP SCH ×3 (00:15→16:45)
[2021-04-15 05:16] LABS: BASOPHILS % (AUTO) 1.1 %; EOSINOPHILS % (AUTO) 2.8 %; HCT - HEMATOCRIT 32.3 % (42.0-52.0); HGB - HEMOGLOBIN 11.1 g/dL (14.0-18.0); LYMPHOCYTES % (AUTO) 27.7 %; MEAN CORPUSCULAR HEMOGLOBIN 31.1 pg (27.0-31.0); MEAN CORPUSCULAR HGB CONC 34.4 g/dL (32.0-36.0); MEAN CORPUSCULAR VOLUME 90.5 fL (80.0-94.0); MEAN PLATELET VOLUME 9.5 fL (7.4-11.4); MONOCYTES % (AUTO) 9.6 %; NEUTROPHILS % (AUTO) 53.2 %; PLT - PLATELET COUNT 140 10^3/uL (130-450); RED BLOOD COUNT 3.57 10^6/uL (4.70-6.10); RED CELL DISTRIBUTION WIDTH 12.3 % (12.0-15.0); WHITE BLOOD COUNT 5.3 x10^3/uL (4.8-10.8)
[2021-04-15 05:21] LABS: ABNORMAL LYMPHS % (MANUAL) 0 %; BAND NEUTROPHILS % (MANUAL) 0 %
[2021-04-15 05:34] LABS: CALCIUM 8.3 mg/dL (8.5-10.3); CREATININE 0.6 mg/dL (0.6-1.2); CRP - C-REACTIVE PROTEIN 12.2 mg/dL (0-1.0); POTASSIUM 3.3 mmol/L (3.5-5.0)
[2021-04-15 05:38] LABS: DIFFERENTIAL COMMENT MANUAL DIFFERENTIAL; EOSINOPHILS # (MANUAL) 0.2 10^3/uL (0-0.7); LYMPHOCYTES # (MANUAL) 1.5 10^3/uL (1.5-3.5); LYMPHOCYTES % (MANUAL) 28 %; MONOCYTES # (MANUAL) 0.7 10^3/uL (0.0-1.0); NEUTROPHILS # (MANUAL) 2.9 10^3/uL (1.5-6.6); PLATELET ESTIMATE, MANUAL NORMAL (130-450,000) (NORMAL); PLATELET MORPHOLOGY NORMAL APPEARANCE (NORMAL); RBC MORPHOLOGY (MULTIPLE) NORMAL APPEARANCE (NORMAL); WBC MORPHOLOGY (MULTIPLE) NORMAL APPEARANCE (NORMAL)
[2021-04-15] MEDS: INSULIN ASPART 300 UNIT/3 ML PEN SUBQ SCH ×7 (07:50→21:16)
[2021-04-15] MEDS: lisinopriL 5 MG TABLET PO SCH (09:22)
[2021-04-15] MEDS: cefTRIAXone 2 GM in SODIUM CHLORIDE 0.9% MINIBAG 100 ML IV SCH (09:22)
[2021-04-15] MEDS: ENOXAPARIN 40 MG/0.4 ML SYRINGE SUBQ SCH (09:22)
[2021-04-15] MEDS ORDERED: INSULIN GLARGINE 300 UNIT/3 ML PEN SUBQ ONE (11:06)
--- NOTE | 2021-04-15 11:21 | PROVIDER PROGRESS NOTE ---
Subjective - Prog Note Date Prog Note Date: 04/15/21 Prog Note Time: 11:19 - Subjective Pt reports feeling: Improved Subjective: He continues to be cheerful, chatty. Says that really he has felt so good the last 2 days. He laughs and again attributes it to the diet Dr. Staton. Denies chest pain, palpitation and shortness of breath. While he endorses a lack of sensation on his feet and legs from peripheral neuropathy, he also describes sensation of hyperesthesia on the soles of his feet sometimes. Right now there is no pain in the left anterior branch where he has the waxing and waning redness. Current Medications - Current Medications Current Medications: Active Medications Acetaminophen (Acetaminophen 325 Mg Tablet) 650 mg PO Q4HR PRN PRN Reason: Pain 1 to 4 Last Admin: 04/11/21 05:29 Dose: 650 mg Enoxaparin Sodium (Enoxaparin 40 Mg/0.4 Ml Syringe) 40 mg SUBQ DAILY [facility] Last Admin: 04/15/21 09:22 Dose: 40 mg Ceftriaxone Sodium 2 gm/ (Sodium Chloride) 100 mls @ 200 mls/hr IV DAILY [facility] Last Infusion: 04/15/21 09:55 Dose: Infused Insulin Aspart (Insulin Aspart 300 Unit/3 Ml Pen) 3 unit SUBQ TIDWM [facility]; Protocol Last Admin: 04/15/21 07:50 Dose: 3 unit Insulin Aspart (Insulin Aspart 300 Unit/3 Ml Pen) 3 - 11 unit SUBQ 0800,1200,1700,2100 [facility]; Protocol Last Admin: 04/15/21 07:50 Dose: 3 unit Insulin Glargine (Insulin Glargine 300 Unit/3 Ml Pen) 18 unit SUBQ DAILY [facility] Lisinopril (Lisinopril 5 Mg Tablet) 10 mg PO DAILY [facility] Last Admin: 04/15/21 09:22 Dose: 10 mg Ondansetron HCl (Ondansetron Odt 4 Mg Tablet) 4 mg TL Q6HR PRN PRN Reason: Nausea / Vomiting Ondansetron HCl (Ondansetron 4 Mg/2 Ml Vial) 4 mg IVP Q6HR PRN PRN Reason: Nausea / Vomiting Potassium Chloride (Potassium Chloride 20 Meq Tablet) 40 meq PO DAILYWM [facility] Sodium Chloride (Sodium Chloride Flush 0.9% 10 Ml Syringe) 10 ml IVP PRN PRN PRN Reason: NEEDED PER PROVIDER ORDERS Sodium Chloride (Sodium Chloride Flush 0.9% 10 Ml Syringe) 10 ml IVP 0100,0900,1700 [facility] Last Admin: 04/15/21 09:23 Dose: 10 ml Glipizide [Glipizide Xl] 10 mg PO BID 04/11/21 Lisinopril [Zestril] 10 mg PO DAILY 04/11/21 metFORMIN [Glucophage] 1,000 mg PO BIDWM 04/11/21 Objective - Vital Signs/Intake & Output Reviewed Vital Signs: Yes Vital Signs: Vital Signs x48h Temp Pulse Resp BP Pulse Ox 04/15/21 07:45 36.6 C 58 L 16 151/87 H 100 Intake & Output: Intake & Output 04/12/21 04/13/21 04/14/21 04/15/21 23:59 23:59 23:59 23:59 Intake Total 2402 1740 2290 540 Output Total 600 Balance 1802 1740 2290 540 - Objective General Appearance: positive: No acute distress, Alert, Other (He is ambulating in his room. Walking to the bathroom. This morning he is in his chair getting ready to eat breakfast.) Eyes Bilateral: positive: PERRL, EOMI Neck: positive: No JVD. negative: Stiff neck Respiratory: positive: No respiratory distress. negative: Wheezes, Rales, Rhonchi Cardiovascular: positive: Regular rate & rhythm. negative: Systolic murmur Abdomen: positive: Non-tender, No organomegaly, Nml bowel sounds, No distention Skin: positive: Warm, Dry, Other (The left anterior branch at mid branch has the redness, 1 punctate loss of skin integrity. This is about the same as it has been the last 2 days. Although there is redness, there is no fluctuance or drainage. There is no bruising. It is slightly warmer than the right leg but not by much.) Extremities: positive: Full ROM Neurologic/Psychiatric: positive: Oriented x3, CN's nml (2-12), Motor nml - Lab Results Fish Bones: 04/15/21 04:51 04/15/21 04:51 Other Labs: Lab Results x24hrs 04/15/21 04/15/21 Range/Units 04:51 04:51 WBC 5.3 (4.8-10.8) x10^3/uL RBC 3.57 L (4.70-6.10) 10^6/uL Hgb 11.1 L (14.0-18.0) g/dL Hct 32.3 L (42.0-52.0) % MCV 90.5 (80.0-94.0) fL MCH 31.1 H (27.0-31.0) pg MCHC 34.4 (32.0-36.0) g/dL RDW 12.3 (12.0-15.0) % Plt Count 140 (130-450) 10^3/uL MPV 9.5 (7.4-11.4) fL Neut # (Auto) Not Reportable Lymph # (Auto) Not Reportable [place] # (Auto) Not Reportable Eos # (Auto) Not Reportable Baso # (Auto) Not Reportable Absolute Nucleated RBC Not Reportable Total Counted 100 Band Neuts % (Manual) 0 (0 - 10) % Abnorm Lymph % (Manual) 0 % Nucleated RBC % Not Reportable Neutrophils # (Manual) 2.9 (1.5-6.6) 10^3/uL Lymphocytes # (Manual) 1.5 (1.5-3.5) 10^3/uL Monocytes # (Manual) 0.7 (0.0-1.0) 10^3/uL Eosinophils # (Manual) 0.2 (0-0.7) 10^3/uL Basophils # (Manual) 0.0 (0-0.1) 10^3/uL Differential Comment MANUAL DIFFERENTIAL WBC Morphology NORMAL APPEARANCE (NORMAL) Platelet Estimate NORMAL (130-450,000) (NORMAL) Platelet Morphology NORMAL APPEARANCE (NORMAL) RBC Morph Micro Appear NORMAL APPEARANCE (NORMAL) Sodium 135 (135-145) mmol/L Potassium 3.3 L (3.5-5.0) mmol/L Chloride 101 (101-111) mmol/L Carbon Dioxide 26 (21-32) mmol/L Anion Gap 8.0 (6-13) BUN 13 (6-20) mg/dL Creatinine 0.6 (0.6-1.2) mg/dL Estimated GFR (MDRD) 133 (>89) Glucose 186 H (70-100) mg/dL Calcium 8.3 L (8.5-10.3) mg/dL C-Reactive Protein 12.2 H (0-1.0) mg/dL ABX Reporting Has patient been on IV antibiotics over the past 48 hours?: Yes Sepsis Event Note (H) - Evaluation Current Stage of Sepsis: Resolved Possible source of Sepsis: positive: Unknown Assessment/Plan - Problem List (1) Streptococcal bacteremia Impression: He initially presented with fever, confusion, tachycardia, tachypnea and weakness. This seems to have resolved by 04/12, vitals are stable. We were treating with IV vancomycin, flagyl and cefapime. Group b strep grew out in a few hours so we stopped flagyl. We have been awaiting sensitivities and it is s trep equis and sensitive to ampicillin. Repeat blood cultures done 04/12 are negative The source of this infection has been pondered. He has poorly controlled diabetes with a chronic callous on his left 5th toe that is being treated by wound care. However, there is only a callus, mild erythema and no fluctuance or drainage on that toe to indicate an acute infection. He does have an abrasion with mild surrounding erythema on his left branch/calf. But no fluctuance or drainage so I thought unlikely to be the source of infection. It was getting larger 04/13 but the geographic distribution follows the covering of his skin w SCDs. However that redness improved 04/14 and 50% smaller than / so now I am wondering if it was a small area of cellulitis since it shrunk so quickly. A bruise or rash would not? No other lesions noted. In looking for other causes of Strep, he does not have any URI symptoms, lungs are clear and chest CT shows no pneumonia. UA shows no UTI. The patient denies pain anywhere to indicate osteomyelitis or septic arthritis and he has no meningeal symptoms. He denies recent travel. He denies recent dental work or IV drug use and he has no embolic lesions. I did not appreciate a murmur on physical exam and transthoracic echo was unremarkable but we are still concerned for endocarditis We have considered a tranesophageal echo but repeat blood cultures have been negative so I don't feel he needs one. I called ID 04/12 and 04/13 and no response. I stopped the vancomycin and flagyl 04/13 and switched to rocephin and he has really improved on exam. on 04/14 his L calf rash almost all resolved and he felt so much better mentally and looks stable. Mentation has improved but he says it is because he now has his Dr. Staton. Today his redness is more expanded but not painful or more swollen. Plan to continue rocephin until 04/16 and then he can go home with Keflex 500 qid for 7 days. that Rx has been sent to [facility] so it is ready for pickup . I also plan on picking up 2 more cans of diet Dr. Staton for him. (2) Type 2 diabetes mellitus with hyperglycemia Impression: Glucose 178 today, A1c 11.1% on admit. Patient reports that this is down from his previous A1c of 15%. His poorly controlled diabetes is likely the cause of diminished sensation in his feet and chronic wound on toe. He is on metformin and glipizide at home. He is receiving Lantus and NovoLog via sliding scale during this admission. We have ordered diabetic education for him in the outpatient setting. He is willing to go home on Lantus but readily admits that he is overwhelmed with the idea of pulling insulin into syringes from a vial. His glucose consistently is in the 200s by later in the day. In the morning he is 198, 191, 180. Lantus is being given at night. I increased dose from 15 to 18 units. Today Diabetic Nutrition asked if we could change lantus to am. So given 10 units this am and 18 tomorrow am. Anticipate he will resume glypizide and metformin at home and add Lantus 10 units at home in am. I have already sent the Rx to the pharmacy in anticipation of dc. Added pen needles as well. He is giving himself insulin since 04/13 after nurse intruction and he feels comfortable for home injection by himself. Qualifiers: Diabetes mellitus residential insulin use: without rn long term care use Qualified Code(s): E11.65 - Type 2 diabetes mellitus with hyperglycemia (3) Wound of left foot (callus of L 5th toe) Impression: He obtains weekly wound care at [facility] and will resume this upon discharge. Externally, the 5th toe wound appears to have healed well at this time and though mildly erythemaous, it is unlikely to be the source of the infection as there is no fluctuance, edema or drainage. X-ray also showed no signs of acute infection. (4) Hypertension Impression: Continue usual lisinopril (5) Altered mental status Impression: He was confused upon presentation to the ED but this seems to have resolved. Especially with his Dr. Staton that started last night. (6) Generalized weakness Impression: He was weak upon presentation to the ED but this seems to have resolved. He is up in the room. Ambulating slowly to the bathroom and back. Getting up from the chair, getting up from the bed. Slightly shuffling gait. He feels safe to go home to usual activites. (7) Hypokalemia supplement po.
[2021-04-15] MEDS: POTASSIUM CHLORIDE 20 MEQ TABLET PO SCH (12:02)
[2021-04-16] MEDS: SODIUM CHLORIDE FLUSH 0.9% 10 ML SYRINGE IVP SCH ×2 (00:15→09:07)
[2021-04-16 05:38] LABS: EOSINOPHILS % (AUTO) 2.1 %; HCT - HEMATOCRIT 36.5 % (42.0-52.0); HGB - HEMOGLOBIN 12.4 g/dL (14.0-18.0); MEAN CORPUSCULAR VOLUME 91.3 fL (80.0-94.0); MEAN PLATELET VOLUME 9.4 fL (7.4-11.4); MONOCYTES % (AUTO) 8.8 %; NEUTROPHILS % (AUTO) 53.4 %; PLT - PLATELET COUNT 196 10^3/uL (130-450); RED CELL DISTRIBUTION WIDTH 12.5 % (12.0-15.0); WHITE BLOOD COUNT 5.8 x10^3/uL (4.8-10.8)
[2021-04-16 05:44] LABS: ABNORMAL LYMPHS % (MANUAL) 0 %
[2021-04-16 05:57] LABS: CALCIUM 8.8 mg/dL (8.5-10.3); CREATININE 0.7 mg/dL (0.6-1.2); CRP - C-REACTIVE PROTEIN 8.3 mg/dL (0-1.0); POTASSIUM 3.6 mmol/L (3.5-5.0)
[2021-04-16 06:08] LABS: BAND NEUTROPHILS % (MANUAL) 1 %; BASOPHILS # (MANUAL) 0.1 10^3/uL (0-0.1); BASOPHILS % (MANUAL) 1 %; DIFFERENTIAL COMMENT MANUAL DIFFERENTIAL; EOSINOPHILS # (MANUAL) 0.1 10^3/uL (0-0.7); LYMPHOCYTES # (MANUAL) 1.7 10^3/uL (1.5-3.5); LYMPHOCYTES % (MANUAL) 30 %; METAMYELOCYTES % (MANUAL) 1 %; MONOCYTES # (MANUAL) 0.4 10^3/uL (0.0-1.0); MYELOCYTES % (MANUAL) 3 %; NEUTROPHILS # (MANUAL) 3.3 10^3/uL (1.5-6.6); PLATELET ESTIMATE, MANUAL NORMAL (130-450,000) (NORMAL); PLATELET MORPHOLOGY NORMAL APPEARANCE (NORMAL); RBC MORPHOLOGY (MULTIPLE) NORMAL APPEARANCE (NORMAL); WBC MORPHOLOGY (MULTIPLE) NORMAL APPEARANCE (NORMAL)
[2021-04-16 07:31] VITALS: BP 157/63
[2021-04-16] MEDS ORDERED: INSULIN GLARGINE 300 UNIT/3 ML PEN SUBQ SCH (09:00)
[2021-04-16] MEDS: INSULIN ASPART 300 UNIT/3 ML PEN SUBQ SCH ×2 (09:03→09:04)
[2021-04-16] MEDS: cefTRIAXone 2 GM in SODIUM CHLORIDE 0.9% MINIBAG 100 ML IV SCH (09:05)
[2021-04-16] MEDS: POTASSIUM CHLORIDE 20 MEQ TABLET PO SCH (09:05)
[2021-04-16] MEDS: ENOXAPARIN 40 MG/0.4 ML SYRINGE SUBQ SCH (09:06)
[2021-04-16] MEDS: lisinopriL 5 MG TABLET PO SCH (09:07)
--- NOTE | 2021-04-16 09:30 | DISCHARGE SUMMARY ---
Discharge Summary Admit Date: 04/10/21 Discharge Date: 04/16/21 Discharging Provider: Ag Sherman Primary Care Provider: Narendra Kam Code Status: Do Not Attempt Resuscitation Condition at Discharge: Stable Discharge Disposition: 01 Home, Self Care - DIAGNOSES Admission Diagnoses: Fever Altered mental status Generalized weakness Wound of left foot Type 2 diabetes mellitus with hyperglycemia Discharge Diagnoses with Status of Each Condition: Fever: Acute. Resolved. Blood culture grew Streptococcus dysgalac Altered mental status; Acute. Resolved. Likely secondary to infection. Generalized weakness: Acute. Resolved Wound of left foot: Improving. Type 2 diabetes mellitus with hyperglycemia: Poorly controlled. Hemoglobin A1c 11.2. Patient prescribed insulin. - HPI History of Present Illness: This is a 70-year-old male with a past medical history significant for type 2 diabetes mellitus who presents today due to weakness and fever. Most of the history is obtained from the patient's spouse as he is altered and unable to provide a meaningful history. She states he has had a wound over his left foot for months now that is being followed by wound care at [place]. He was scheduled to see them again tomorrow but she noticed that he was becoming weaker over the past 2 days. She states he was himself yesterday but this morning he was quite weak and he slumped to the ground twice. She reports no injuries. She also noticed that he was confused today which is unusual. He is normally quite independent and active. She states he does have diabetes and his blood g lucose normally is not very well controlled but the past few days it has been less than 250. He did not take any of his medications today. She reports no smoking or alcohol use. The patient denies shortness of breath, chest pain, abdominal pain, nausea, vomiting. In the emergency department, he was noted to be febrile, tachycardic, tachypneic but not hypoxic. Labs revealed thrombocytopenia but otherwise were unremarkable except for hyperglycemia. X-ray was concerning for possible infiltrate. Given the concern for infection, medicine was consulted for admission. I did discuss goals of care with the patient's spouse given he is altered. She states he has made it quite clear in the past that he is a DNR. - HOSPITAL COURSE Hospital Course: Patient was admitted and started empirically on vancomycin, cefepime and Flagyl. 1 of 2 blood cultures subsequently grew Streptococcus dysgala. Consequently antibiotics were deescalated to Rocephin only. This was continued until discharge. The patient's symptoms of fever, confusion, tachycardia, tachypnea and weakness resolved by 04/12/2021. 2D echocardiogram done during this hospital stay was negative for vegetation. Ejection fraction was 60%. The patient was discharged home with a prescription of Keflex 500 mg 4 times daily x7 days. His hemoglobin A1c was found to be 11.1. Previously he has had a hemoglobin A1c of 15. He was prescribed Lantus upon discharge. So far he has been on glipizide and Metformin at home. An outpatient diabetic education was also prescribed. The patient was discharged in stable condition. He may follow-up with his primary care physician as needed. - ALLERGIES Allergies/Adverse Reactions: Allergies Allergy/AdvReac Type Severity Reaction Status Date / Time No Known Drug Allergies Allergy Verified 04/10/21 15:59 - MEDICATIONS Home Medications: Ambulatory Orders Medication Instructions Recorded Confirmed Glipizide [Glipizide Xl] 10 mg PO BID 04/11/21 04/11/21 Lisinopril [Zestril] 10 mg PO DAILY 04/11/21 04/11/21 metFORMIN [Glucophage] 1,000 mg PO BIDWM 04/11/21 04/11/21 Insulin Glargine [Lantus Solostar] 10 unit SUBQ DAILY #1 dis.syr 04/15/21 Pen Needle, Diabetic [Insulin Pen 1 each MC DAILY #30 ndl 04/15/21 Needle] cephALEXin [Keflex] 500 mg PO Q6H #28 cap 04/15/21 - PHYSICAL EXAM AT DISCHARGE General Appearance: positive: No acute distress, Alert Eyes Bilateral: positive: PERRL, EOMI ENT: positive: No signs of dehydration Neck: positive: No JVD, Trachea midline Respiratory: positive: Chest non-tender, No respiratory distress, Breath sounds nml. negative: Wheezes, Rales, Rhonchi Cardiovascular: positive: Regular rate & rhythm, No murmur, No gallop Abdomen: positive: Non-tender, No organomegaly, Nml bowel sounds, No distention. negative: Guarding, Rebound Back: positive: Nml inspection Skin: positive: No rash, Warm, Dry Extremities: positive: Non-tender, Full ROM, Nml appearance, No pedal edema Neurologic/Psychiatric: positive: Oriented x3, Mood/affect nml - LABS Result Diagrams: 04/16/21 05:16 04/16/21 05:16 - SEPSIS Current Stage of Sepsis: Resolved Possible source of Sepsis: Unknown - TIME SPENT Time Spent in Discharge (Minutes): 15
--- NOTE | 2021-04-16 09:30 | Discharge Plan ---
Discharge Plan Problem Reviewed?: Yes Disposition: Home, Self Care Condition: Stable Prescriptions: Pen Needle, Diabetic [Insulin Pen Needle] 1 each MC DAILY #30 ndl cephALEXin [Keflex] 500 mg PO Q6H #28 cap Insulin Glargine [Lantus Solostar] 10 unit SUBQ DAILY #1 dis.syr Diet: Diabetic Activity Restrictions: Activity as Tolerated Weight Bearing: Full Weight Instruction Topics: Diabetes Mcfp Complications, Insulin Types, Diabetes Healthy Meals, Diabetes Carbs, Diabetes Eating Out, Injection Pens Dc, Diabetes Meal Planning, Diabetes Get Support Plan of Treatment: You were admitted on to with fever and weakness. Work-up included obtaining blood cultures for which 1 subsequently grew strep. You were treated with antibiotics throughout the course of your hospital stay. Upon discharge you were prescribed Keflex for 7 days. You had a 2D echocardiogram done which was unremarkable. Consequently you are being discharged home in stable condition after a 6-day hospital stay. You may follow-up with your primary care physician as needed. The above plan was explained to you, you expressed understanding and are agreeable with the plan. No Smoking: If you smoke, Please STOP! Call for help. Follow-up with: Narendra Kam MD [Primary Care Provider] -
== END 2021-04-16 11:15 | disposition home or self-care (01) | DRG 872 ==
LOC: EDUNIT# → ED 15:44 → MS2 19:43 → OBSVTOIN 04-11 07:19
PROVIDERS: ADMIT Internal Medicine; ATTEND Internal Medicine
DX: A41.9 Sepsis, unspecified organism (principal); J18.9 Pneumonia, unspecified organism; L03.032 Cellulitis of left toe; A40.8 Other streptococcal sepsis; R53.1 Weakness; R41.82 Altered mental status, unspecified; E11.65 Type 2 diabetes mellitus with hyperglycemia; Z20.822 Contact with and (suspected) exposure to COVID-19; Z79.4 Long term (current) use of insulin; Z79.84 Long term (current) use of oral hypoglycemic drugs; D69.6 Thrombocytopenia, unspecified; Z66 Do not resuscitate; I10 Essential (primary) hypertension; E66.01 Morbid (severe) obesity due to excess calories; Z68.36 Body mass index [BMI] 36.0-36.9, adult; L84 Corns and callosities; S80.812A Abrasion, left lower leg, initial encounter; X58.XXXA Exposure to other specified factors, initial encounter
CPT/HCPCS: 36415; 71045; 71260; 73630; 74177; 80048; 80053; 80202; 81003; 83036; 83605; 83690; 84443; 85025; 85610; 85651; 85730; 86140; 86141; 87040; 87077; 87150; 87181; 87631; 93306; 96361; 96365; 96366; 96367; 96376; 99284; 99285; A9270; G0378; J1650; J1815; J3370; J7120; Q9967; 0202U; 81001; 87086

== ENCOUNTER 2021-04-30 13:00 | Outpatient (CLI) | payer MEDICARE ==
--- NOTE | 2021-04-30 15:37 | XRAY Report ---
PROCEDURE: Chest 2 View X-Ray INDICATIONS: LINGERING WET COUGH,CHILLS,PNEUMONIA? TECHNIQUE: 2 view(s) of the chest. COMPARISON: April 10, 2021. Reference is made to the CT chest dated April 10, 2021. FINDINGS: SUPPORT DEVICES: None. LUNGS/PLEURA: No focal consolidation, pleural effusion or space-occupying pneumothorax. MEDIASTINUM: The cardiomediastinal silhouette is within normal limits. BONES/SOFT TISSUES: No acute abnormality. IMPRESSION: 1.No acute cardiopulmonary abnormality. Reviewed by: Melvin Barfield MD on 04/30/2021 3:35 PM PDT Approved by: Melvin Barfield MD on 04/30/2021 3:35 PM PDT Station ID: [id number]
== END 2021-04-30 13:01 | disposition home or self-care (01) ==
LOC: DI 13:00
PROVIDERS: ATTEND Physician Assistant
DX: R05.9 Cough, unspecified (principal); R68.83 Chills (without fever)

== ENCOUNTER 2022-07-31 14:52 | Outpatient (CLI) | payer MEDICARE | END 2022-07-31 14:53 | disposition home or self-care (01) | LOC: DI 14:52 | PROVIDERS: ATTEND Physician Assistant | DX: R06.00 Dyspnea, unspecified (principal); R60.0 Localized edema; I49.3 Ventricular premature depolarization | CPT/HCPCS: 93306 ==

== ENCOUNTER 2024-09-24 20:36 | Inpatient (IN) ==
--- OUTSIDE RECORDS SUMMARY | 2024-09-24 20:46 | EXTERNAL MEDICAL SUMMARY RPT | Continuity of Care Document ---
Author Organization [facility] Address [address] [place] [id number] Phone Problems date description facility 2024-08-19 12:38 Transient alteration of [facility] 2024-09-09 15:55 Local infection of t he skin and subcutaneous tissue, unspecified [facility] 2024-09-12 15:06 Type 2 diabetes mellitus with h yperglycemia [facility] 2024-09-12 15:06 Local infection of t he skin and subcutaneous tissue, unspecified [facility] 2024-09-12 15:06 Non-pressure chronic 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 [facility] 2024-09-13 13:14 Type 2 diabetes mellitus with f oot ulcer [facility] 2024-09-13 13:14 Non-pressure chronic ulcer of other part of unspecified foot with unspecified severity [facility] 2024-09-16 12:01 Type 2 diabetes mellitus with f oot ulcer [facility] 2024-09-16 12:01 Non-pressure chronic ulcer of other part of unspecified foot with unspecified severity [facility] Results/Labs test date facility value unit notes Result panel 1 CUL,WOUND (AEROBIC) 2024-09-09 14:30 [facility] (missing) (missing) (missing) CUL,WOUND (AEROBIC) 2024-09-09 14:30 [facility] 2+ MIXED Skin Bethany Present. No further workup will be (missing) (missing) CUL,WOUND (AEROBIC) 2024-09-09 14:30 [facility] CULTURE IN PROGRESS. RESULTS TO FOLLOW. (missing) (missing) CUL,WOUND (AEROBIC) 2024-09-09 14:30 [facility] FEW GRAM POSITIVE COCCI IN PAIRS (missing) (missing) CUL,WOUND (AEROBIC) 2024-09-09 14:30 [facility] GRAM STAIN: (missing) (missing) CUL,WOUND (AEROBIC) 2024-09-09 14:30 [facility] RARE WHITE BLOOD CELLS (missing) (missing) CUL,WOUND (AEROBIC) 2024-09-09 14:30 [facility] performed on this culture. (missing) (missing) Result panel 2 ESTIMATED AVERAGE GLUCOSE 2024-09-12 14:56 [facility] 18 6 mg/dl (missing) HEMOGLOBIN A1c% 2024-09-12 14:56 [facility] 8.1 % Social History date description facility
--- NOTE | 2024-09-24 20:52 | ED Physician Documentation ---
History of Present Illness Stated complaint Stated Complaint: WEAKNESS Chief complaint Chief Complaint: General History obtained from History obtained from: Patient and Family History of Present Illness Timing: How many days ago (3) Additonal information Additional information: Declan is a 73-year-old male with history of type 2 diabetes complicated by foot ulcer as well as hypertension. He has a prior history of streptococcal bacteremia and generalized weakness. He is presenting to the emergency department today with a rapidly progressing generalized weakness that is occurred over the last 3 days. The patient is usually able to get himself up and get to the bathroom he has had 2 falls in the last 3 days and is too weak to get out of bed without the assistance of his . His indicates that she is unable to hold the patient up and she indicates there has been a rapid decline. He has had weakness previously similar to this associated with sepsis. [place] Coma Scale Assess Eye opening: Spontaneous Verbal response: Confused Motor response: Obeys Commands Total score: 14 Review of Systems Patient is a poor historian and has poor cooperation with the review of systems. The indicates that he has had cough for the past 3 months and that he has developed sweats associated with hypoglycemia and he has had a number of hypoglycemic episodes in the past 2 weeks. His basal insulin has been decreased and despite this he continues to have episodic hypoglycemia. He is not eating much. He has had a fall today without injury. Meds/Allgy Home Medications Ambulatory Orders Medication Instructions Recorded Confirmed lisinopril 10 mg tablet (Zestril) 10 mg PO DAILY 04/1109/25/24 metformin 500 mg tablet 1,000 mg PO BIDWM 04/11/21 0 09/25/24 pen needle, diabetic 31 gauge x ##30 04/15/21 09/25/2402/11" Focus Factor 1 tab PO DAILY 07/10/2109/09 aspirin 81 mg tablet,delayed 81 mg PO DAILY 07/10/21 0 09/25/24 release cholecalciferol (vitamin D3) 25 25 mcg PO DAILY 09/25/24 mcg (1,000 unit) tablet insulin glargine 100 unit/mL (3 71 unit subcut DAILY 0 07/10/21 09/25/24 mL) subcutaneous pen (Lantus Solostar U-100 Insulin) vitamin B complex-folic acid 0.4 1 tab PO DAILY 09/25/24 mg tablet mecobalamin (vitamin B12) 1,000 1 tab PO DAILY 3 09/25/24 mcg chewable tablet (B12 Active) furosemide 20 mg tablet 20 mg PO QDAY 09/09/2409/25 gabapentin 300 mg capsule 300 mg PO QDAY 09/09/2409/09 Allergies Allergies Allergy/AdvReac Type Severity Reaction Status Date / Time No Known Drug Allergies Allergy Verified 04/10/21 15:59 [facility] Active Problems All Active Problems (Updated 05/16/22 @ 10:22 by Roly Linares MD) Non-pressure chronic 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 (Acute) Type 2 diabetes mellitus with foot ulcer (Acute) Hypertension (Acute) Streptococcal bacteremia (Acute) Wound of left foot (Acute) Altered mental status (Acute) Type 2 diabetes mellitus with hyperglycemia (Acute) Generalized weakness (Acute) Fever (Acute) Hyperglycemia (Acute) Pneumonia (Acute) Social History Social History Smoking Status: Former smoker Living arrangement: At home Living Condition: With spouse/s.o. Relationship: Do you feel safe in your home environment?: Yes Suffered physical, verbal, emotional, or financial abuse?: No Exam Exam Bearded 73-year-old male who appears older than his stated age is slow to respond with 2 to 3 seconds of speech latency and delay in execution of motor commands. He appears confused. Constitutional no apparent distress and average body habitus The patient is slow to respond HENMT normocephalic and head/scalp atraumatic Eyes PERRL and EOMs intact bilaterally Respiratory breath sounds equal bilaterally, normal respiratory effort and clear to auscultation bilaterally Cardiovascular normal heart rate noted, regular rhythm noted and no murmur Gastrointestinal abdomen normal to inspection, abdomen soft to palpation and nontender to palpation Protuberant abdomen with multiple areas of superficial bruising secondary to insulin injections Genitourinary no CVA tenderness Back/Pelvis spine normal to inspection and no thoracic spine tenderness Extremities There is a superficial ulceration to the right anterior calf with minimal swelling to the calf and no significant erythema. The left calf has a stage I ulcer that appears to be healing well. This was wrapped on initial evaluation and the wrapping is removed. There does not appear to be acute infection involved. Neurology field health officer II-XII intact and no movement abnormality noted Psychiatry As above the patient has poor memory he has speech latency and delay in execution of motor commands. He appears generally confused and by history this is progressed over the past 2 to 3 months. Skin skin color normal To the abdominal wall there are multiple areas of superficial bruising associated with insulin injection. Results Vitals Vitals: Oxygen O2 Source Room air EKG (time done) 440: EKG releavant findings:: EKG personally interpreted by author of this note. Relevant findings are: Rate: Rate (enter#) (93) Rhythm: NSR QRS: Wide QRS Ischemia: ST depression (anterolateral with inverted T waves in V5,V6) Compare to prior EKG: Old EKG unavailable Labs Labs: Laboratory Tests 09/24/24 20:47 POC Whole Bld Glucose 216 PD Medical Decision Making ED course Complexity details: reviewed old records, reviewed results, re-evaluated patient, considered differential, d/w patient and d/w family Reviewed Lab Results: We reviewed a complete blood count showing an elevated white blood cell count of 11.5 hemoglobin was low at 9.9 and hematocrit low at 33.6 these are decreased from the patient's prior from April. Chemistries show an elevated potassium of 4.9 with normal sodium of 135 and elevated BUN of 25 with a normal creatinine of 1.1 glucose is elevated at 187 high-sensitivity troponin done hours after the patient is arrived to the emergency department is 43.8. This patient's course is concerning for the possibility of infection and this possibility is supported by an elevated white blood cell count. He has some anemia which was present previously under similar circumstances. He had a weeklong hospitalization in April 2021. That apparently was for pneumonia. The patient has had an episode of chest pain that lasted 4 to 5 hours 2 days ago. While he was in the emergency department he had a brief for episode of chest pain informed the nurse of this and a troponin was obtained which was mildly elevated. The episode resolved and we are anticipating requiring a second troponin for clarification. ED course: 73-year-old male with a several month decline in strength and cognition is brought to the hospital today by ambulance after a collapse at home while attempting to go to the bathroom. He usually is using a walker and requires the help of his to assist him with that and today he was weak enough that she was unable to hold him up. The patient has history of diabetes and has had a number of recent hypoglycemic episodes. His insulin dose has been cut back his food intake has been cut back and he is having periodic sweats and sugars in the range of 60-80 with symptoms.His indicates that he has been into the wound care clinic and his wounds to both of his lower extremities are improving. We evaluated the patient thinking he may have some sign of infection we found a normal-appearing chest x-ray, normal urinalysis mild elevation of the white blood cell count. Nasal PCR was negative. Patient developed a pain in his chest lasting maybe 20 minutes he notified the RN the RN came in obtained electrocardiogram showing some inverted T waves in the lateral leads consistent with some possible ischemia and a troponin was obtained which was mildly elevated. The patient has not had the symptoms previously. He does admit that he had 4 to 5 hours of chest pain 2 days ago. At shift change a second troponin is pending. A social work consult is pending with PT and OT evaluation and treatment. Discharge Plan Discharge Prescriptions: No Action metformin 500 MG tablet 1,000 mg PO BIDWM Patient Comments: TAKE 1 TABLET BY MOUTH TWICE DAILY WITH MEALS lisinopril [Zestril] 10 MG tablet 10 mg PO DAILY Patient Comments: TAKE 1 TABLET BY MOUTH ONCE DAILY (DME) pen needle, diabetic 1 EACH needle 1 ea miscellaneous DAILY Qty: 30 0RF aspirin 81 MG tablet,delayed release (DR/EC) 81 mg PO DAILY vitamin B complex-folic acid 0.4 MG tablet 1 tab PO DAILY cholecalciferol (vitamin D3) 25 MCG tablet 25 mcg PO DAILY Focus Factor Tablet 1 tab PO DAILY insulin glargine [Lantus Solostar U-100 Insulin] 100 UNIT/ML insulin pen 71 unit subcut DAILY mecobalamin (vitamin B12) [B12 Active] 1,000 MCG tablet,chewable 1 tab PO DAILY gabapentin 300 mg capsule 300 mg PO QDAY Patient Comments: TAKE 1 CAPSULE BY MOUTH TWICE DAILY furosemide 20 mg tablet 20 mg PO QDAY Print Language: Turkmen Stand Alone Forms: PCP List Follow-up Care: Narendra Kam MD [Primary Care Provider] -
[2024-09-24 21:39] LABS: HCT - HEMATOCRIT 33.6 % (42.0-52.0); HGB - HEMOGLOBIN 9.9 g/dL (14.0-18.0); MEAN PLATELET VOLUME 10.1 fL (7.4-11.4); NRBC ABSOLUTE COUNT (AUTO) 0.00 x10^3/uL; NUCLEATED RED BLOOD CELLS AUTO 0.0 /100WBC; PLT - PLATELET COUNT 185 10^3/uL (130-450); RED CELL DISTRIBUTION WIDTH 17.9 % (12.0-15.0)
[2024-09-24 21:47] LABS: GLUCOSE, URINE (UA) 500 mg/dL (NEGATIVE); KETONES,URINE (UA) NEGATIVE (NEGATIVE); OCCULT BLOOD,URINE NEGATIVE (NEGATIVE)
[2024-09-24 21:52] LABS: ALT ALANINE AMINOTRANSFERASE 18 IU/L (10-60); AST ASPARTATE AMINOTRANSFERASE 27 IU/L (10-42); BUN - BLOOD UREA NITROGEN 25 mg/dL (6-20); CARBON DIOXIDE - CO2 27 mmol/L (21-32); CREATININE 1.1 mg/dL (0.6-1.3); GFR - MDRD 65 (>89)
[2024-09-24 22:00] LABS: AMORPHOUS SEDIMENT,UR Rare /LPF; SQUAMOUS EPITHELIAL CELL,UR NONE SEEN (<= Few)
--- NOTE | 2024-09-24 23:48 | XRAY Report ---
PROCEDURE: XR Chest 1V INDICATIONS: chest pain TECHNIQUE: One view of the chest was acquired. COMPARISON: 08/22/2021. FINDINGS: Surgical changes and devices: None. Lungs and pleura: No pleural effusions or pneumothorax. No consolidation. Mediastinum: Mediastinal contours appear normal. Heart size is enlarged. Bones and chest wall: No suspicious bony lesions. Overlying soft tissues appear unremarkable. IMPRESSION: Cardiomegaly. No acute pulmonary process. Reviewed by: Sarmad Davidson MD on 09/24/2024 11:47 PM PDT Approved by: Sarmad Davidson MD on 09/24/2024 11:47 PM PDT Station ID: [id number]
[2024-09-25 06:55] LABS: B. PARAPERTUSSIS- RESP PCR PAN NOT DETECTED; B. PERTUSSIS- RESP PCR PANEL NOT DETECTED; C. PNEUMONIAE- RESP PCR PANEL NOT DETECTED; CORONAVIRUS 229E-RESP PCR NOT DETECTED; CORONAVIRUS HKU1-RESP PCR NOT DETECTED; CORONAVIRUS NL63-RESP PCR NOT DETECTED; CORONAVIRUS OC43-RESP PCR NOT DETECTED; HUMAN METAPNEUMOVIRUS NOT DETECTED; INFLUENZA A- RESP PCR PANEL NOT DETECTED; M. PNEUMONIAE- RESP PCR PANEL NOT DETECTED; PARAINFLUENZA VIRUS 2 NOT DETECTED; PARAINFLUENZA VIRUS 4 NOT DETECTED; RHINOVIRUS/ENTEROVIRUS NOT DETECTED; RSV- RESP PCR PANEL NOT DETECTED; SARS-CoV-2 -RESP PCR PANEL NOT DETECTED
[2024-09-25 06:56] LABS: INFLUENZA B - RESP PCR PANEL NOT DETECTED; PARAINFLUENZA VIRUS 1 NOT DETECTED
--- NOTE | 2024-09-25 07:39 | ED Physician Documentation ---
ED Addendum Addendum Addendum: Patient received a signout from outgoing physician, police at the recommendation for further detail. Patient signed out to me with repeat troponin pending. It has downtrend to 34.4. He does have an elevation in beta natruretic peptide. He did have episode of chest pain few days ago though no active pain at this time. Discussed with Dr. Bear, [facility]. Per recommendation, recommend management heart failure with diuresis, echocardiogram, telemetry. No immediate recommendation or indication for cardiac catheterization. No recommendation for heparinization. IV Lasix ordered Patient evaluated independently. Continues to have some tachypnea. Lower extr emities are edematous with venous stasis changes. Denies active chest pain. Discussed with hospitalist service who graciously agrees to hospitalize for further evaluation and treatment. Discharge Plan Discharge Patient Disposition: [facility] DC/Xfer Clinical Impression: Acute hypoxic respiratory failure, Non-ST elevation AL (NSTEMI) Congestive heart failure Qualifiers: Heart failure type: unspecified Heart failure chronicity: unspecified Qualified Code(s): I50.9 - Heart failure, unspecified Interventions: ED Admission Assessment Last Done: 09/25/24 09:50 Vitals documented within 30 minutes of discharge?: Yes
[2024-09-25] MEDS: SODIUM CHLORIDE 0.9% 500 ML IV STA (07:58)
[2024-09-25] MEDS: FUROSEMIDE 100 MG/10 ML VIAL IVP STA (09:07)
[2024-09-25] MEDS ORDERED: ONDANSETRON 4 MG/2 ML VIAL IVP PRN (09:09)
[2024-09-25] MEDS ORDERED: ONDANSETRON ODT 4 MG TABLET TL PRN (09:09)
--- NOTE | 2024-09-25 09:12 | HISTORY & PHYSICAL EXAMINATION ---
Chief Complaint Chief Complaint Chief Complaint: Generalized weakness, shortness of breath History of Present Illness Admitted From Admitted From:: Home History Obtained From Records Reviewed: EMR History obtained from: Patient Exam Limitations: None History of Present Illness HPI Comment/Other: Patient is a 73-year-old male with a history of insulin-dependent diabetes mellitus, chronic venous insufficiency with wounds on left lower extremity that are being followed by wound clinic who comes in after a few complaints. is at bedside and corroborates the history. Over the last few months, patient has gotten progressively weaker. Is gotten to the point where he mostly spends his day on the couch, and walks a few steps to the living room. In the last few days, he has gotten so weak that he is unable to get up on his own. Patient endorses feeling short of breath even with walking short distances. He denies any fevers although endorses some chills. He has a cough which is productive of yellow to green sputum production. He has wounds, per the , have continued to improve. He is sees the wound clinic biweekly. His next appointment is on . Currently, patient has no chest pain. He endorses mild shortness of breath, but states that is much improved from when he first got here. He has no known cardiac disease history. He has never seen a fire and safety helper. Last echocardiogram in our system is from 07/31/2022 which indicates normal systolic function and normal diastolic function. He also has no valvular pathology. In the ER, patient was normotensive with blood pressure 132/99, heart rate was 99, respiratory rate was 20, and he was saturating 98% on room air. He desaturated to 90%, and was placed on 4 L of oxygen. EKG showed some T wave inversions in the lateral leads. Troponin was elevated at 43.8, and then repeat was 34.9. BNP is 1207. The ER did speak with cardiology, Dr. Bear at [facility] who recommended diuresis, echocardiogram and telemetry. CTA was ordered to rule out PE, and patient was admitted for acute hypoxic respiratory failure. Meds/Allgy Home Medications Ambulatory Orders Medication Instructions Recorded Confirmed lisinopril 10 mg tablet (Zestril) 10 mg PO DAILY 04/1109/25/24 metformin 500 mg tablet 1,000 mg PO BIDWM 04/11/21 0 09/25/24 pen needle, diabetic 31 gauge x ##30 04/15/21 09/25/2402/11" Focus Factor 1 tab PO DAILY 07/10/2109/09 aspirin 81 mg tablet,delayed 81 mg PO DAILY 07/10/21 0 09/25/24 release cholecalciferol (vitamin D3) 25 25 mcg PO DAILY 09/25/24 mcg (1,000 unit) tablet insulin glargine 100 unit/mL (3 100 unit subcut DAILY 07/10/21 09/25/24 mL) subcutaneous pen (Lantus Solostar U-100 Insulin) vitamin B complex-folic acid 0.4 1 tab PO DAILY 09/25/24 mg tablet furosemide 20 mg tablet 20 mg PO DAILY 09/09/2409/09 gabapentin 300 mg capsule 300 mg PO QPM 09/09/2409/25 cyanocobalamin (vitamin B-12) 1,000 mcg PO DAILY 09/2509/25/24 1,000 mcg capsule vitamin B complex (Vitamins B 1 cap PO DAILY 09/25/24 09/25/24 Complex capsule) Allergies Allergies Allergy/AdvReac Type Severity Reaction Status Date / Time No Known Drug Allergies Allergy Verified 04/10/21 15:59 PFSH Active Problems All Active Problems (Updated 09/25/24 @ 14:21 by Martha Odell MD) Non-ST elevation PR (NSTEMI) (Acute) Congestive heart failure (Acute) Acute hypoxic respiratory failure (Acute) Acute hypoxic respiratory failure (Acute) Non-pressure chronic 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 (Acute) Type 2 diabetes mellitus with foot ulcer (Acute) Hypertension (Acute) Streptococcal bacteremia (Acute) Wound of left foot (Acute) Altered mental status (Acute) Type 2 diabetes mellitus with hyperglycemia (Acute) Generalized weakness (Acute) Fever (Acute) Hyperglycemia (Acute) Pneumonia (Acute) Social History Social History Smoking Status: Former smoker If you are a former smoker, when did you quit? (Date/Year): 1969 Number of Years Smoked: 35 How many cigarettes a day do you smoke? (20 cigarettes=1 Pk): 80 Second hand tobacco smoke exposure: No Living arrangement: At home Living Condition: With spouse/s.o. Relationship: Level: Dependent Home Mobility Equipment: Cane, Wheeled walker and Wheelchair Do you feel safe in your home environment?: Yes Suffered physical, verbal, emotional, or financial abuse?: No Substance Use: over the counter (eg: immodium) Substance Use Details: ASA POLST Patient has POLST: No Review of Systems Constitutional Reports: Fatigue, Chills, Malaise and Weakness; Denies: Fever or Poor appetite Eyes Denies: Pain, Irritation, Blurry vision, Vision loss or Diplopia Ears, nose, mouth, and throat Denies: Ear pain, Hearing loss, Tinnitus, Nose bleeds, Nasal discharge, Mouth lesions or Bleeding gums Cardiovascular Reports: edema, shortness of breath with exertion, shortness of breath when lying down and Decreased exercise tolerance; Denies: Irregular heart rate, chest pain, palpitations or Syncope Respiratory Reports: Shortness of breath, Cough and Sputum production; Denies: Wheezing Gastrointestinal Denies: Abdominal pain, Abdominal distention, Nausea, Vomiting, Heartburn, Diarrhea or Constipation Genitourinary Denies: Painful urination, Urinary frequency or Urinary urgency Musculoskeletal Reports: Extremity swelling; Denies: Back pain, Extremity pain or Joint pain Integumentary/Breast Reports: Redness; Denies: Rash, Itching, Dryness or Skin pain Neurological Reports: General weakness and Weakness in extremities; Denies: Headache, Numbness in extremities, Abnormal gait or Dizziness Psychiatric Denies: Depression, Anxiety, Mood swings or Panic attacks Endocrine Reports: Fatigue; Denies: Excessive urination or Excessive thirst Hematologic/Lymphatic Denies: Anemia, Easy bruising or Easy bleeding Allergic/Immunologic Denies: Hives, Tongue swelling, Facial swelling or Wheezing Prior Level of Functionality: Uses cane to get around. Dependent on for most ADLs. Spends most of his day in bed. Exam Exam Vital Signs: Vital Signs x48h Temp Pulse Pulse Resp BP BP Pulse Ox 09/25/24 10:26 97.9 F 86 20 117/75 100 09/25/24 09:00 101 H 30 H 125/91 H 100 09/25/24 08:00 98.2 F 93 35 H 132/83 H 99 09/25/24 07:45 O2 Flow Rate 09/25/24 10:26 4 09/25/24 09:00 4 09/25/24 08:00 4 09/25/24 07:45 4 Constitutional normal general appearance, distress noted (mild) and (respiratory), abnormal body habitus (obese) and no limitations HENMT normocephalic, head/scalp atraumatic and hearing grossly normal bilaterally Eyes PERRL, EOMs intact bilaterally and conjunctivae normal Neck/C-Spine visual inspection normal, trachea midline and cervical spine nontender Chest inspection of chest normal Respiratory breath sounds equal bilaterally, abnormal respiratory effort (pursed lip breathing) and (labored), clear to auscultation bilaterally, no wheezes and no retractions Crackles noted in right lower lobe Cardiovascular normal heart rate noted, regular rhythm noted, no gallop, no rub and no murmur Gastrointestinal abdomen normal to inspection, abdomen soft to palpation, nontender to palpation and normoactive bowel sounds Genitourinary no CVA tenderness and bladder normal to palpation Back/Pelvis spine normal to inspection, no thoracic spine tenderness and no lumbar spine tenderness Extremities normal to inspection and normal to palpation 2+ pitting edema, hyperpigmentation due to stasis changes, left lower extremity with open wound with no active purulence noted Neurology no movement abnormality noted and no focal motor deficit noted Psychiatry mental status grossly normal, oriented x3, thought process normal, cooperative and affect normal Conclusion/Plan Problem List (1) Acute hypoxic respiratory failure: Plan: Patient presents with acute hypoxic respiratory failure. Requiring 4 L of oxygen. Continue to wean as tolerated. Chest x-ray shows cardiomegaly, with some interstitial edema. CT is ordered to rule out any PE with the sudden change in respiratory status. proBNP is elevated, patient is showing signs of fluid overload. Echo is ordered. Patient does not carry diagnosis of heart failure. Continue diuresis with IV Lasix. Direct and send outs, daily weights, cardiac diet, free water restriction until echo has been completed. Procalcitonin is negative. Afebrile. Mild elevation white count. Continue without antibiotics at this time. Blood cultures are ordered, pending. (2) Type 2 diabetes mellitus with foot ulcer: Plan: Continue low-dose sliding scale at this time. Qualifiers: Diabetes mellitus fpc insulin use: with fpc use Qualified Code(s): E11.621 - Type 2 diabetes mellitus with foot ulcer; L97.509 - Non- pressure chronic ulcer of other part of unspecified foot with unspecified severity; Z79.4 - [facility] (current) use of insulin (3) Hypertension: Plan: Continue home medications including lisinopril. Patient was prescribed Lasix, but has not been taking for the past 3 to 4 days, because he does not make it to the bathroom on time. Qualifiers: Hypertension type: unspecified Qualified Code(s): I10 - Essential (primary) hypertension (4) Generalized weakness: Plan: Likely due to above. PT evaluation has been ordered. Lab Results Lab results reviewed: Yes 09/24/24 21:21 09/24/24 21:21 Diagnostic Imaging Results Diagnostic Imaging Results: positive Final report reviewed EKG Results EKG Interpreted Independently: Yes Core Measures Anticipated LOS I expect patient to be DC'd or transferred within 96 hours.: Yes Issues Hospital Issues and Management Plan: None anticipated. DVT/VTE - Prophylaxis VTE/DVT Device ordered at admit?: No VTE/DVT Prophylaxis med ordered at admit?: Yes
--- NOTE | 2024-09-25 11:28 | PHARMACY PROGRESS NOTE ---
Best Possible Medication History Admit Date and Time: 09/25/24 [id number] Home Medications Medication Instructions Recorded Confirmed Type lisinopril 10 mg tablet (Zestril) 10 mg PO DAILY 04/1109/25/24 History metformin 500 mg tablet 1,000 mg PO BIDWM 04/11/21 0 09/25/24 History pen needle, diabetic 31 gauge x ##30 04/15/21 09/25/24 Rx 1/3" Focus Factor 1 tab PO DAILY 07/10/2109/09 History aspirin 81 mg tablet,delayed 81 mg PO DAILY 07/10/21 0 09/25/24 History release cholecalciferol (vitamin D3) 25 25 mcg PO DAILY 09/25/24 History mcg (1,000 unit) tablet insulin glargine 100 unit/mL (3 100 unit subcut DAILY 07/10/21 09/25/24 History mL) subcutaneous pen (Lantus Solostar U-100 Insulin) vitamin B complex-folic acid 0.4 1 tab PO DAILY 09/25/24 History mg tablet furosemide 20 mg tablet 20 mg PO DAILY 09/09/2409/09 History gabapentin 300 mg capsule 300 mg PO QPM 09/09/2409/25 History cyanocobalamin (vitamin B-12) 1,000 mcg PO DAILY 09/2509/25/24 History 1,000 mcg capsule vitamin B complex (Vitamins B 1 cap PO DAILY 09/25/24 09/25/24 History Complex capsule) Processed by: Nursing Medications reviewed in ED?: Yes Medication History completed: Yes Patient Interview: Pt unable to participate Secondary Source(s): Spouse/Significant other, Pharmacy records and Insurance records [facility] Statement: As the person ultimately responsible for medication therapy, providers are able to order a medication from an existing home medication list in [facility] via the "Reconcile Routine" prior to Confirmation of that medication by computer support analyst. Such practice is discouraged except when the physician, in their clinical judgment, deems that a medical need exists for a medication without regard to previous use.
[2024-09-25] MEDS: FUROSEMIDE 40 MG/4 ML VIAL IVP SCH (14:56)
--- NOTE | 2024-09-25 17:59 | ECHO Report ---
Version: 1 Study ID: [id number] [id number] Adult Echocardiogram Report Name: DELTA JAMES Study Date: 09/25/2024, 1: 59 PM BP: 125 / 91 mmHg Patient Location: ^2204^01 HR: 107 bpm : 1950 (MM/DD/YYYY) Gender: Male Height: 67 in Age: 73 Years Weight: 290 lb BSA: 2.37 m² Reason For Study: tropinemia History: Definity was not used because patient had pulled I.V. out. Interpretation Summary The left ventricle is mildly dilated. The visual left ventricular ejection fraction is estimated at 20 to 25%. The right ventricle is mildly dilated. The right ventricular systolic function is moderately decreased. The pulmonary artery systolic pressure is severely increased. Inferior vena cava dynamics indicate severely elevated right atrial pressures. Left Ventricle: The left ventricle is mildly dilated. There is normal left ventricular wall thickness. Thrombus can not be excluded. The visual left ventricular ejection fraction is estimated at 20 to 25%. Right Ventricle: The right ventricle is mildly dilated. The right ventricular systolic function is moderately decreased. TAPSE is consistent with decreased right ventricular function. The tricuspid annular plane systolic excursion (TAPSE) measurement is 1.0 cm. Aortic Valve: The aortic valve is moderately calcified. No hemodynamically significant valvular aortic stenosis. No aortic regurgitation is present. Mitral Valve: The mitral valve leaflets appear thickened, but with normal motion. No evidence of mitral stenosis is seen. There is mild to moderate mitral regurgitation. Tricuspid Valve: The tricuspid valve is not well visualized. There is no tricuspid stenosis. Moderate tricuspid regurgitation present. Pulmonic Valve: The pulmonic valve is normal in structure and function. There is no pulmonic valvular stenosis. Mild pulmonic valvular regurgitation is present. Left Atrium: The left atrium is mildly dilated. Right Atrium: The right atrium is mildly dilated. Atrial Septum: The interatrial septum appears normal, without evidence of shunt by 2D imaging and color Doppler. Aorta: The ascending aorta is normal in size. The sinuses of Valsalva are normal in size. Pulmonary Artery: The pulmonary artery is not well visualized, but is probably normal size. The pulmonary artery systolic pressure is severely increased. Inferior vena cava dynamics indicate severely elevated right atrial pressures. The right ventricular systolic pressure is 72mmHg. Pericardium/Pleural Space: There is no pericardial effusion. Left Ventricle IVSd: 0.92 cm LVIDd: 5.8 cm LVPWd: 0.81 cm LVIDs: 5.3 cm ESV(sp4-el): 83.0 ml Right Ventricle TAPSE: 1.01 cm RV S Ludin: 7.4 cm/sec Atria LA dimension: 5.5 cm LAV(MOD-sp4): 81.0 ml LAV(MOD-sp2): 79.6 ml Aortic Valve LVOT diam: 2.07 cm LV V1 mean P.5 mmHg LV V1 mean: 75.2 cm/sec LV V1 VTI: 17.7 cm Ao V2 VTI: 29.8 cm Ao mean P.1 mmHg Ao V2 mean: 127.5 cm/sec LV V1 max: 102.3 cm/sec LV V1 max P.2 mmHg Ao max P.6 mmHg Ao V2 max: 162.5 cm/sec Mitral Valve MV max P.6 mmHg MV V2 max: 128.7 cm/sec MV mean P.6 mmHg MV V2 mean: 73.2 cm/sec MV V2 VTI: 27.0 cm Tricuspid Valve TR max P.8 mmHg TR max ludin: 376.8 cm/sec TV max P.8 mmHg Aorta Ao root diam: 3.0 cm MMode/2D Measurements & Calculations Ao root diam: 3.0 cm BMI: 45.4 kilograms/m² BSA([facility]): 2.6 m² EF (est.): 13.9 % ESV(sp4-el): 83.0 ml IVSd: 0.92 cm LA A4C-A/L: 23.2 cm² LA dimension: 5.5 cm LA ESV-A/L: 77.9 ml LA Vol Index: 25.1 ml/m² LAV(MOD-sp2): 79.6 ml LAV(MOD-sp4): 81.0 ml LVIDd: 5.8 cm LVIDs: 5.3 cm LVOT diam: 2.07 cm LVPWd: 0.81 cm RA A4Cs: 18.1 cm² TAPSE: 1.01 cm Doppler Measurements & Calculations Ao max P.6 mmHg Ao mean P.1 mmHg Ao V2 max: 162.5 cm/sec Ao V2 mean: 127.5 cm/sec Ao V2 VTI: 29.8 cm LV V1 max: 102.3 cm/sec LV V1 max P.2 mmHg LV V1 mean: 75.2 cm/sec LV V1 mean P.5 mmHg LV V1 VTI: 17.7 cm MV max P.6 mmHg MV mean P.6 mmHg MV V2 max: 128.7 cm/sec MV V2 mean: 73.2 cm/sec MV V2 VTI: 27.0 cm RV S Ludin: 7.4 cm/sec TR max P.8 mmHg TR max ludin: 376.8 cm/sec TV max P.8 mmHg Other Measurements & Calculations Ao root area: 7.1 cm² ENMANUEL(I,D): 2.00 cm² ENMANUEL(V,D): 2.12 cm² EDV(Teich): 168.9 ml EF(sp-el): 50.0 % EF(Teich): 19.1 % ESV(Teich): 136.7 ml FS: 8.8 % LVOT area: 3.4 cm² MVA(VTI): 2.21 cm² SV(LVOT): 59.6 ml MD Molly Moses 09/25/2024, 5: 58 PM Ordering Physician: Martha Odell Referring Physician: Martha Odell Performed By: CAIT
--- NOTE | 2024-09-25 18:46 | CT Report ---
PROCEDURE: CT Angio Chest INDICATIONS: DMITRY CONTRAST: 80ml omni 300 TECHNIQUE: After the administration of intravenous contrast, 2 mm axial images were acquired from the pulmonary apices to the posterior costophrenic angles during the arterial phase. In addition, 1 mm lung kernel and 5 mm soft tissue kernel reconstructions were performed. 3-dimensional coronal oblique maximum intensity projection (MIP) reformats, 8 mm axial MIP, and 5 mm coronal and sagittal MPR reformats were then performed through the thorax. For radiation dose reduction, the following was used: automated exposure control, adjustment of mA and/or kV according to patient size. COMPARISON: None. FINDINGS: Image quality: Excellent. Large vessels: No filling defects within the opacified pulmonary arteries, accounting for motion and contrast timing. No evidence of acute aortic syndrome or aortic aneurysm. Lungs and pleura: No dense airspace consolidation. There is, however diffuse bilateral groundglass opacity. Although the lungs are submaximal expanded, cannot exclude early inflammation or infection. No pleural effusions. No pneumothorax. No suspicious pulmonary nodules which require follow up. Mediastinum: Heart size is normal. No pericardial effusion. No large vessel abnormality. No mediastinal adenopathy by size criteria. Chest wall and lower neck: Thyroid is unremarkable. No axillary or supraclavicular adenopathy by size. Bones: No aggressive osseous abnormality. Upper Abdomen: Unremarkable. IMPRESSION: 1. No acute pulmonary emboli. 2. Diffuse groundglass opacity which suggests possible diffuse inflammation or early infection.. Early pulmonary edema is not excluded. Recommend clinical correlation Reviewed by: Marcos Unger MD on 09/25/2024 6:45 PM PDT Approved by: Marcos Unger MD on 09/25/2024 6:45 PM PDT Station ID: [id number]
[2024-09-25] MEDS: SODIUM CHLORIDE FLUSH 0.9% 10 ML SYRINGE IVP SCH (21:13)
[2024-09-25] MEDS: FAMOTIDINE 20 MG/2 ML VIAL IVP SCH (21:13)
[2024-09-26] MEDS: ACETAMINOPHEN 325 MG TABLET PO PRN (03:33)
[2024-09-26 05:37] LABS: HCT - HEMATOCRIT 31.6 % (42.0-52.0); HGB - HEMOGLOBIN 9.6 g/dL (14.0-18.0); MEAN PLATELET VOLUME 9.7 fL (7.4-11.4); PLT - PLATELET COUNT 163.0 10^3/uL (130-450); RED CELL DISTRIBUTION WIDTH 17.6 % (12.0-15.0)
[2024-09-26 05:53] LABS: BUN - BLOOD UREA NITROGEN 26.0 mg/dL (6-20); CARBON DIOXIDE - CO2 27.0 mmol/L (21-32); CREATININE 1.0 mg/dL (0.6-1.3); GFR - MDRD 73.0 (>89)
[2024-09-26] MEDS: CYANOCOBALAMIN 500 MCG TABLET PO SCH (08:40)
[2024-09-26] MEDS: CHOLECALCIFEROL 25 MCG TABLET PO SCH (08:40)
[2024-09-26] MEDS: ASPIRIN EC 81 MG TABLET PO SCH (08:40)
[2024-09-26] MEDS: METOPROLOL SUCCINATE 25 MG TABLET PO SCH (08:40)
[2024-09-26] MEDS: INSULIN GLARGINE-YFGN 300 UNIT/3 ML PEN SUBQ SCH (08:41)
[2024-09-26] MEDS: ENOXAPARIN 40 MG/0.4 ML SYRINGE SUBQ SCH (08:41)
[2024-09-26] MEDS ORDERED: VITAMIN B COMPLEX FOLIC ACID PO SCH (09:00)
[2024-09-26] MEDS ORDERED: VITAMIN B COMPLEX PO SCH (09:00)
[2024-09-26] MEDS ORDERED: FOCUS FACTOR PO SCH (09:00)
--- NOTE | 2024-09-26 11:15 | PROVIDER PROGRESS NOTE ---
Subjective Subjective Subjective: Patient is a 73-year-old male who presented with shortness of breath. Found to be in new onset heart failure. IV diuresis and then PT evaluation when adequately diuresed. Initial ECHO showed possible LV thrombus. Echo with contrast is ordered, remains pending. Hold off on anticoagulation until confirmation. This morning, patient is feeling much better. He still has some shortness of breath. He states he has been urinating a lot. We discussed this new finding of congestive heart failure with reduced ejection fraction. He shares that he was referred to a upper marker in the outpatient setting, and was supposed to get a stress test, but he was worried that the stress test would induce heart attack, which is how his mother . As such, he did not go through with it. We talked about how these diagnostic testing studies i.e. a stress test, a cardiac catheterization are his best bet at preventing further cardiac complications. He has a better understanding of this, and he knows the importance of following up with a primary care provider in the outpatient setting. Current Medications Current Medications Current Medications: Current Medications Generic Name Dose Route Start Last Admin Trade Name Freq PRN Reason Stop Dose Admin Acetaminophen 650 mg 09/25/24 09:09 09/26/24 03:33 Acetaminophen 325 Mg Tablet PO 650 mg Q4HR PRN Administration Pain 1 to 4, or Fever Aspirin 81 mg 09/26/24 09:00 09/26/24 08:40 Aspirin Ec 81 Mg Tablet PO 81 mg DAILY DIMA Administration Cholecalciferol 25 mcg 09/26/24 09:00 09/26/24 08:40 Cholecalciferol 25 Mcg Tablet PO 25 mcg DAILY DIMA Administration Cyanocobalamin 1,000 mcg 09/26/24 09:00 09/26/24 08:40 Cyanocobalamin 500 Mcg Tablet PO 1,000 mcg DAILY DIMA Administration Enoxaparin Sodium 40 mg 09/26/24 09:00 09/26/24 08:41 Enoxaparin 40 Mg/0.4 Ml Syringe SUBQ 40 mg DAILY DIMA Administration Famotidine 20 mg 09/25/24 21:00 09/26/24 08:40 Famotidine 20 Mg/2 Ml Vial IVP 20 mg BID DIMA Administration Furosemide 40 mg 09/25/24 14:00 09/26/24 07:36 Furosemide 40 Mg/4 Ml Vial IVP 40 mg BIDDIURETIC DIMA Administration Insulin Glargine-yfgn 50 unit 09/26/24 09:00 09/26/24 08:41 Insulin Glargine-Yfgn 300 Unit/3 Ml Pen SUBQ 50 unit DAILY DIMA Administration Insulin Human Lispro 1 - 5 unit 09/26/24 12:00 Insulin Lispro 300 Unit/3 Ml Pen SUBQ 0800,1200,1700,2100 [facility] Protocol Lisinopril 10 mg 09/26/24 09:00 09/26/24 08:40 Lisinopril 5 Mg Tablet PO 10 mg DAILY DIMA Administration Metoprolol Succinate 25 mg 09/26/24 09:00 09/26/24 08:40 Metoprolol Succinate 25 Mg Tablet PO 25 mg DAILY DIMA Administration Ondansetron HCl 4 mg 09/25/24 09:09 Ondansetron Odt 4 Mg Tablet TL Q6HR PRN Nausea / Vomiting Ondansetron HCl 4 mg 09/25/24 09:09 Ondansetron 4 Mg/2 Ml Vial IVP Q6HR PRN Nausea / Vomiting Sodium Chloride 10 ml 09/25/24 09:09 Sodium Chloride Flush 0.9% 10 Ml Syringe IVP PRN PRN NEEDED PER PROVIDER ORDERS Sodium Chloride 10 ml 09/25/24 17:00 09/26/24 08:42 Sodium Chloride Flush 0.9% 10 Ml Syringe IVP 10 ml 0100,0900,1700 [facility] Administration Objective Vital Signs/Intake & Output Reviewed Vital Signs: Yes Vital Signs: Vital Signs x48h Temp Pulse Resp BP Pulse Ox O2 Flow Rate 09/26/24 06:10 97.7 F 92 20 130/84 97 3 Intake & Output: Intake & Output 09/23/24 09/24/24 09/25/24 09/26/24 23:59 23:59 23:59 23:59 Intake Total 237 / 237 1180 / 1180 Output Total 450 / 450 1200 / 1200 Balance -213 / -213 -20 / -20 Weight (kg) 131.088 kg 132 kg 122.5 kg Objective General Appearance: positive Alert, Mild distress and Other (Mild respiratory distress, with some belly breathing noted.); negative No acute distress or Anxious Eyes Bilateral: positive Normal inspection, PERRL and EOMI ENT: positive ENT inspection nml and Pharynx nml Neck: positive Nml inspection, Thyroid nml and No JVD Respiratory: positive Chest non-tender and Other (Mild bibasilar crackles noted, right worse than left); negative Wheezes or Rales Cardiovascular: positive Regular rate & rhythm, No murmur and No gallop; negative Tachycardia or Systolic murmur Abdomen: positive Non-tender, No organomegaly and No distention; negative Guarding or Splenomegaly Back: positive Nml inspection; negative CVA tenderness (R) or CVA tenderness (L) Skin: positive Dry Extremities: positive Other (2+ pitting edema, hyperpigmentation due to stasis changes, left lower extremity with open wound with no active purulence noted) Neurologic/Psychiatric: positive Oriented x3, Motor nml and Mood/affect nml Lab Results 09/26/24 05:19 09/26/24 05:19 Other Labs: Lab Results x24hrs 09/26/24 09/26/24 09/25/24 Range/Units 08:32 05:19 20:36 WBC 9.4 (4.8-10.8) x10^3/uL RBC 3.89 L (4.70-6.10) 10^6/uL Hgb 9.6 L (14.0-18.0) g/dL Hct 31.6 L (42.0-52.0) % MCV 81.2 (80.0-94.0) fL MCH 24.7 L (27.0-31.0) pg MCHC 30.4 L (32.0-36.0) g/dL RDW 17.6 H (12.0-15.0) % Plt Count 163 (130-450) 10^3/uL MPV 9.7 (7.4-11.4) fL Sodium 135 (135-145) mmol/L Potassium 4.2 (3.5-4.5) mmol/L Chloride 102 (101-111) mmol/L Carbon Dioxide 27 (21-32) mmol/L Anion Gap 6.0 (6-13) BUN 26 H (6-20) mg/dL Creatinine 1.0 (0.6-1.3) mg/dL Estimated GFR (MDRD) 73 L (>89) Glucose 171 H (74-104) mg/dL POC Whole Bld Glucose 181 247 (70-100) mg/dL Calcium 8.9 (8.5-10.3) mg/dL Magnesium 1.9 (1.7-2.3) mg/dL Procalcitonin Immunoas (<0.5) ng/mL 09/25/24 09/25/24 Range/Units 16:56 07:38 WBC (4.8-10.8) x10^3/uL RBC (4.70-6.10) 10^6/uL Hgb (14.0-18.0) g/dL Hct (42.0-52.0) % MCV (80.0-94.0) fL MCH (27.0-31.0) pg MCHC (32.0-36.0) g/dL RDW (12.0-15.0) % Plt Count (130-450) 10^3/uL MPV (7.4-11.4) fL Sodium (135-145) mmol/L Potassium (3.5-4.5) mmol/L Chloride (101-111) mmol/L Carbon Dioxide (21-32) mmol/L Anion Gap (6-13) BUN (6-20) mg/dL Creatinine (0.6-1.3) mg/dL Estimated GFR (MDRD) (>89) Glucose (74-104) mg/dL POC Whole Bld Glucose 199 (70-100) mg/dL Calcium (8.5-10.3) mg/dL Magnesium (1.7-2.3) mg/dL Procalcitonin Immunoas 0.08 (<0.5) ng/mL Assessment/Plan Problem List (1) Acute hypoxic respiratory failure: Impression: Diffuse ground glass opacities noted in CTA, likely fluid. Negative for PE. Echo shows new onset congestive heart failure with reduced ejection fraction of 20 to 25%. Compared to echo completed in 2022, this is a drastic change. Patient will need ischemic workup in the outpatient setting. He has already been told this in the past. He has been referred to cardiology in the past. Will start GDMT. Metoprolol succinate 25 mg started today. Patient is already on lisinopril; will need this switched to Entresto in the outpatient setting. Continue IV Lasix for now, but will need spironolactone added once adequately diuresed. Will also need Jardiance in the outpatient setting as we do not have it on formulary here. Patient still appears fluid overloaded. Continue daily weights, cardiac diet, free water restriction, strict ins and outs. Continue IV Lasix 40 mg twice daily. Continue to wean oxygen as tolerated. (2) LV (left ventricular) mural thrombus: Impression: Echo reading states that they cannot exclude an LV thrombus. Echo ordered with Definity contrast, pending. If this is positive, we will start him on anticoagulation, and he will need repeat echo in 3 to 6 months. (3) New onset of congestive heart failure: Impression: See above. (4) Type 2 diabetes mellitus with foot ulcer: Impression: Per patient, he takes 100 units of Lantus in the morning, as well as a sliding scale insulin. He has been having hypoglycemic episodes at home, so halved this dose while he is here, and added a sliding scale insulin. Hypoglycemic protocol in place. Qualifiers: Diabetes mellitus long term acute care registered nurse insulin use: with custodial use Qualified Code(s): E11.621 - Type 2 diabetes mellitus with foot ulcer; L97.509 - Non- pressure chronic ulcer of other part of unspecified foot with unspecified severity; Z79.4 - residential (current) use of insulin (5) Hypertension: Impression: Continue lisinopril. Metoprolol added for GDMT. Qualifiers: Hypertension type: unspecified Qualified Code(s): I10 - Essential (primary) hypertension (6) Generalized weakness: Impression: Could largely be related to this new onset congestive heart failure. Once patient has been diuresed effectively, will need PT eval to determine placement.
[2024-09-26] MEDS: INSULIN LISPRO 300 UNIT/3 ML PEN SUBQ SCH (12:04)
--- NOTE | 2024-09-26 12:40 | PT Plan of Care ---
PT Inpatient Plan of Care DIAGNOSIS Diagnosis: acute hypoxic RF; left ventricular mural thrombus; new onset of HF Referring Provider: Martha Odell Patient Status: Inpatient CHIEF COMPLAINT Chief Complaint: dyspnea, progressive weakness Onset of Chief Complaint: SEISMOGRAPHER on 09/24/24 BALANCE/FUNCTIONAL RESULTS Sitting Balance: Good Standing Balance: Fair Tinetti Composite Score (Balance + Gait): 9 Tinetti Assessment Interpretation: High Fall Risk ASSESSMENT Assessment: The pt is a 73 y/o M who arrived to the ED on 09/24/24 due to worsening dyspnea and progressive LE weakened, he was hospitalized with acute hypoxic RF, new onset HF, and left ventricle mural thrombus. Patient has a wound on his L LE/foot which he is being seen by wound care, please see chart for complete medical hx. The pt was received resting comfortably sitting up in a recliner and presented today with decreased B UE and LE strength, decreased activity tolerance, and impaired standing balance all of which limited his tolerance with functional mobility and increased his fall risk. His overall tolerance throughout this assessment was limited by fatigue. At this time recommend continued skilled PT intervention while in the acute setting and DC to SNF for further rehab once pt medically stable. The pt may progress to being able to DC home with HH therapy pending his recovery. This plan was discussed with the pt and he was in agreement with this. At the end of the session the pt was sitting up in a chair with call light in reach, chair alarm in place and on, and all needs met. RN updated on pt's status and DC rec. PATIENT/FAMILY GOALS Patient/Family Goals: I want to be stronger and not fall as frequently GOALS Improve supine to sit to:: Modified Independent Improve sit to stand to:: Modified Independent Improve pivot transfer ability to:: Modified Independent Improve sit to supine to:: Modified Independent Improve gait ability to:: CGA Advance Assistive Device to:: Front Wheeled Walker Increase distance walked to (in feet):: 100 Other gait goal:: pt will be able to amb 100' in less than 10 minutes PLAN Frequency: 1-2x/day Duration: Until discharge DISCHARGE RECOMMENDATIONS Discharge Location: Longterm Facility Support/Services Needed: With assist Other Discharge Equipment: pt owns all recommended DME Transport Needs at Discharge: Wheelchair van
[2024-09-26] MEDS: GABAPENTIN 300 MG CAPSULE PO SCH (21:01)
--- NOTE | 2024-09-26 21:16 | ECHO Report ---
Version: 1 Study ID: [id number] Institution Name Institution Address Institution Address Line #2 Telephone & email Name: DELTA JAMES Study Date: 09/26/2024, 5: 08 PM Patient Location: [facility] [place]^[id number] : 1950 (MM/DD/YYYY) Gender: Male Age: 73 Years Reason For Study: f/u with Definity History: Limited study F/U with Definity contrast to R/O Apical Thrombus Left Ventricle There is no thrombus. Left ventricular systolic function is severely reduced. 25 %. There is severe global hypokinesis of the left ventricle. Reference Ranges Source: Default source Reading Physician MD Molly Moses 09/26/2024, 9: 16 PM Ordering Physician: Martha Odell Referring Physician: Jose Kim Performed By: [facility]
[2024-09-27 05:48] LABS: HCT - HEMATOCRIT 32.3 % (42.0-52.0); HGB - HEMOGLOBIN 9.7 g/dL (14.0-18.0); MEAN PLATELET VOLUME 9.5 fL (7.4-11.4); PLT - PLATELET COUNT 161.0 10^3/uL (130-450); RED CELL DISTRIBUTION WIDTH 17.7 % (12.0-15.0)
[2024-09-27 06:05] LABS: BUN - BLOOD UREA NITROGEN 27.0 mg/dL (6-20); CARBON DIOXIDE - CO2 30.0 mmol/L (21-32); CREATININE 1.1 mg/dL (0.6-1.3); GFR - MDRD 65.0 (>89)
[2024-09-27] MEDS: SODIUM CHLORIDE FLUSH 0.9% 10 ML SYRINGE IVP PRN (07:54)
[2024-09-27 13:46] VITALS: BP 124/67; TEMP 97.3; O2SAT 98
--- NOTE | 2024-09-28 07:37 | Discharge Summary ---
Discharge Summary Admit Date: 09/26/24 Discharge Date: 09/27/24 Discharging Provider: Yanna Aguilar MD Primary Care Provider: Narendra Kam MD Code Status: Attempt Resuscitation DIAGNOSES Discharge Diagnoses with Status of Each Condition: 1. Acute respiratory failure with hypoxia 2. Abnormal echocardiogram 3. New onset congestive heart failure 4. 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 Hypertension 6. Generalized weakness HPI History of Present Illness: Patient is a 73-year-old male with a history of insulin-dependent diabetes mellitus, chronic venous insufficiency with wounds on left lower extremity that are being followed by wound clinic who comes in after a few complaints. is at bedside and corroborates the history. Over the last few months, patient has gotten progressively weaker. Is gotten to the point where he mostly spends his day on the couch, and walks a few steps to the living room. In the last few days, he has gotten so weak that he is unable to get up on his own. Patient endorses feeling short of breath even with walking short distances. He denies any fevers although endorses some chills. He has a cough which is productive of yellow to green sputum production. He has wounds, per the , have continued to improve. He is sees the wound clinic biweekly. His next appointment is on . Currently, patient has no chest pain. He endorses mild shortness of breath, but states that is much improved from when he first got here. He has no known cardiac disease history. He has never seen a sem manager. Last echocardiogram in our system is from 07/31/2022 which indicates normal systolic function and normal diastolic function. He also has no valvular pathology. In the ER, patient was normotensive with blood pressure 132/99, heart rate was 99, respiratory rate was 20, and he was saturating 98% on room air. He desaturated to 90%, and was placed on 4 L of oxygen. EKG showed some T wave inversions in the lateral leads. Troponin was elevated at 43.8, and then repeat was 34.9. BNP is 1207. The ER did speak with cardiology, Dr. Bear at [place] who recommended diuresis, echocardiogram and telemetry. CTA was ordered to rule out PE, and patient was admitted for acute hypoxic respiratory failure. CONSULTS | PROCEDURES Procedures: Chest CT with CT angiogram did not have pulmonary emboli. He had diffuse groundglass opacities suggesting diffuse inflammation or early infection. Echocardiogram on September 25 done for mild elevation in troponins could not be done with Definity because he pulled the IV out. The left ventricle was mildly dilated, EF was 20 to 25%, right ventricle mildly dilated. Right ventricular systolic function moderately decreased. Pulmonary artery systolic pressure severely increased. Inferior vena cava dynamics indicated severe elevated right atrial pressures. Because of the possible mural thrombus in the LV, a limited echocardiogram was repeated on September 26. There is no thrombus in the left ventricle. Continued reduced ejection fraction to 25% with severe global hypokinesis of the left ventricle. September 24 blood cultures without growth HOSPITAL COURSE Hospital Course: (1) Acute hypoxic respiratory failure: Impression: Diffuse ground glass opacities noted in CTA, likely fluid. Negative for PE. Echo shows new onset congestive heart failure with reduced ejection fraction of 20 to 25%. Compared to echo completed in 2022, this is a drastic change. Patient will need ischemic workup in the outpatient setting. He has already been told this in the past. He has been referred to cardiology in the past. Will start GDMT. Metoprolol succinate 25 mg started on admit. Patient is already on lisinopril; will need this switched to Entresto in the outpatient setting. He received IV Lasix while in the hospital. But at discharge was sent home on p.o. Lasix 40 mg daily. He Will also need Jardiance in the outpatient setting as we do not have it on formulary here. The patient was initially on nasal cannula oxygen when he was admitted. By the day of discharge, the next day, he was on room air. (2) LV (left ventricular) mural thrombus: Impression: Echo reading states that they cannot exclude an LV thrombus. Repeat Echo ordered with Definity contrast And there was no mural thrombus seen. (3) New onset of congestive heart failure: Impression: See above. (4) Type 2 diabetes mellitus with foot ulcer: Impression: Per patient, he takes 100 units of Lantus in the morning, as well as a sliding scale insulin. He has been having hypoglycemic episodes at home, so halved this dose while he is here, and added a sliding scale insulin. Hypoglycemic protocol in place. When he was discharged, I did warn him that he does not need to 100 units of insulin. To consider going to 50 units. He said that he would be checking his sugar at home and adjust his Lantus on the basis of what he is seeing at home.He is to resume his usual footcare that he does with primary care provider. 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 Metoprolol added for GDMT. Qualifiers: Hypertension type: unspecified Qualified Code(s): I10 - Essential (primary) hypertension (6) Generalized weakness: Impression: Could largely be related to this new onset congestive heart failure. Physical therapy did evaluate the patient on admission. They felt that he was a fall risk. When ambulating he required cues and he had to limit his talking because he would get dyspneic. Although he was a minimal assist for sitting, transferring, and walking using his front wheel walker, it took him 15 minutes to ambulate 75 feet. He is unsteady when he immediately stands. Unsteady when he turns around. The wound on his left foot is limiting him. PT did recommend skilled physical therapy discharge to a SNF when medically stable. The patient was initially in agreement with that. But when it came time for discharge, the patient declined the opportunity and wanted to go home. Patient was discharged in stable condition. Blood pressure 124/67, pulse 89, respirations 20, temperature 36.3, O2 sat 98%. Of note, the PICC nurse did try and help him with [facility] and he was adamant that she was not to help him. He has a wound dressing in place over the left lower leg and that is changed every by the wound clinic. He is alert and oriented to person and place. But he is forgetful. Neck is supple. He is very hard of hearing. Just sitting him up so I can listen to his lungs causes him to get tachypneic. He has a regular rate and rhythm. An abdomen that soft and nontender. Both legs have moderate to severe pitting edema. Greater than 30 minutes was spent coordinating discharge This document was made in part using voice recognition software. While efforts are made to proofread this document, sound alike and grammatical errors may occur. ALLERGIES Allergies Allergy/AdvReac Type Severity Reaction Status Date / Time No Known Drug Allergies Allergy Verified 09/29/24 17:03 MEDICATIONS Ambulatory Orders Medication Instructions Recorded Confirmed lisinopril 10 mg tablet (Zestril) 10 mg PO DAILY 04/1109/25/24 metformin 500 mg tablet 1,000 mg PO BIDWM 04/11/21 0 09/25/24 pen needle, diabetic 31 gauge x ##30 04/15/21 09/25/2402/11" Focus Factor 1 tab PO DAILY 07/10/2109/09 aspirin 81 mg tablet,delayed 81 mg PO DAILY 07/10/21 0 09/25/24 release cholecalciferol (vitamin D3) 25 25 mcg PO DAILY 09/25/24 mcg (1,000 unit) tablet insulin glargine 100 unit/mL (3 100 unit subcut DAILY 07/10/21 09/25/24 mL) subcutaneous pen (Lantus Solostar U-100 Insulin) gabapentin 300 mg capsule 300 mg PO QPM 09/09/2409/25 cyanocobalamin (vitamin B-12) 1,000 mcg PO DAILY 09/2509/25/24 1,000 mcg capsule vitamin B complex (Vitamins B 1 cap PO DAILY 09/25/24 09/25/24 Complex capsule) empagliflozin 10 mg tablet 10 mg PO DAILY #30 tabs (Jardiance) furosemide 20 mg tablet 40 mg (2 x 20 mg) PO DAILY # 60 tabs 09/27/24 09/25/24 metoprolol succinate 25 mg 25 mg PO DAILY #30 tabs tablet,extended release 24 hr LABS 09/27/24 05:38 09/27/24 05:38 Discharge Plan Discharge Patient Disposition: Home Health Service Condition: Fair Prescriptions: New metoprolol succinate 25 mg Tablet Extended Release 24 Hr 25 mg PO DAILY Qty: 30 0RF Jardiance 10 mg tablet 10 mg PO DAILY Qty: 30 2RF Continued metformin 500 MG tablet 1,000 mg PO BIDWM Patient Comments: TAKE 1 TABLET BY MOUTH TWICE DAILY WITH MEALS lisinopril [Zestril] 10 MG tablet 10 mg PO DAILY Patient Comments: TAKE 1 TABLET BY MOUTH ONCE DAILY (DME) pen needle, diabetic 1 EACH needle 1 ea miscellaneous DAILY Qty: 30 0RF aspirin 81 MG tablet,delayed release (DR/EC) 81 mg PO DAILY cholecalciferol (vitamin D3) 25 MCG tablet 25 mcg PO DAILY Focus Factor Tablet 1 tab PO DAILY insulin glargine [Lantus Solostar U-100 Insulin] 100 UNIT/ML insulin pen 100 unit subcut DAILY gabapentin 300 mg capsule 300 mg PO QPM cyanocobalamin (vitamin B-12) 1,000 mcg capsule 1,000 mcg PO DAILY vitamin B complex [Vitamins B Complex] Capsule 1 cap PO DAILY Changed furosemide 20 mg tablet 40 mg PO DAILY Qty: 60 0RF Activity Restrictions: Activity as Tolerated Diet: Low Sodium Health Concerns: You came to the hospital because you have been getting weaker over the last few months and then for the last 3 weeks you are getting more more short of breath. You are spending your days on the couch, and only a few steps to walk in the house would make you winded. You finally got so winded you could not get up on your own. You have the risk factors for having heart attacks. You have high blood pressure, diabetes, are overweight. And you have a high cholesterol, have a family history and are male (males are more increased risk for heart attacks than women). I am postulating that you may have had silent heart attack in the last few months. That heart attack has taken away the muscle pump of your heart so your blood could not move forward out of the left heart. Your muscle pump can no longer pump well and you went into a new diagnosis of congestive heart failure since blood was backing up into your lungs, taking away your oxygen. Over the last few days, we started you on new medication and we have made you urinate quite a bit to get rid of the fluid that is backing up into your lungs. Your oxygen is better. Your endurance is better. But you are still pretty tired and weak. We have started you on new medications: 1. We have increased your Lasix from 20 mg a day to 40 mg a day 2. We have started a new diabetic drug but it is not for your diabetes. It is for your congestive heart failure. It is Jardiance. 3. You are already on lisinopril and that is a blood pressure drug as well as a congestive heart failure drug 4. We have started you on metoprolol. That is a drug that we use to slow down your heart rate so that your heart does not have to pump so heart in congestive heart failure. 5. You need to see a sem manager because the next step is to add Entresto for your congestive heart failure and take away the lisinopril. Because you are severely impacted by your congestive heart failure, your endurance is less than it should be. We were recommending that you go to a [facility] facility for rehab to get your strength up but you have declined that opportunity. You have also declined the opportunity of getting home health physical therapy and Occupational Therapy to help you in the house. You have set up quite a bit of barriers to why you cannot go to a assisted and why you cannot have home health. You have identified the main barrier as your . What ever the barriers you are discussing, I am advising you to start making plans for the future. This is a very debilitating illness and if it is not controlled, would lead to progressive deconditioning, progressive worsening of your heart function and an earlier . I am strongly recommending that you sit down with your and family and discuss what your future would look like from a practical perspective. For instance, who is going to take care of your property, mow the acres of lawn, take care of the house? You and your are already getting older and you state that your is overwhelmed and cannot do this on her own. You state that it is already evident with you being in the hospital a few days that she cannot do it. So sit down and talk to your kids and your grandkids about selling the place. Or they come live with you. Or you live with them. But do make some plans. You seem hesitant to intervention. For instance, you were already referred to a sem manager to look at your heart even before you came in the hospital but you did not want to do the stress test because "your mother of a heart attack" and a stress test almost killed you. While I understand your resistance and your fears, please do not delay treatment and workup because your fears outweigh practicality. When I told you this in person you told me that if it was your time "it was your time anyway so you were not going to worry about it". One of the things you may have to worry about is something called sudden . Since your ejection fraction is below 30 or 35%, those people are at risk for a severely abnormal electrical conduction of the heart muscle. It is called ventricular tachycardia. The ventricular tachycardia will come from out of nowhere, and you will collapse. You have stated that you are a DO NOT RESUSCITATE. If that were to happen to you you do not want to have intubation or CPR. You filled out a form called a POLST form so we could put that in our records. Please see your primary care provider in follow-up. And make sure that you keep an appointment with a sem manager if you have already been referred. Also weigh yourself daily. If you start gaining more than 3 or 4 pounds in a day, that is water weight and your Lasix needs to be adjusted. Talk to your primary care provider about that. You also need to be on a low-salt diet. No more than 2000 mg a day. Print Language: Tajik Patient Instructions: Coping with Heart Failure, Heart Failure Assessment, Heart Failure Dc, Low Salt Diet Dc, Heart Failure and Physical Activity Follow-up Care: Narendra Kam MD [Primary Care Provider, Internal Medicine] Vitals documented within 30 minutes of discharge?: Yes
== END 2024-09-27 13:47 | disposition home health service (06) | DRG 189 ==
LOC: MS2 20:36 → ED 20:36 → MS2 09-25 09:55
PROVIDERS: ADMIT Internal Medicine; ATTEND Internal Medicine
DX: Z87.891 Personal history of nicotine dependence; Z91.81 History of falling; Z79.899 Other long term (current) drug therapy; Z79.84 Long term (current) use of oral hypoglycemic drugs; J96.01 Acute respiratory failure with hypoxia; I87.2 Venous insufficiency (chronic) (peripheral); Z20.828 Contact with and (suspected) exposure to other viral communicable diseases; H91.90 Unspecified hearing loss, unspecified ear; E66.9 Obesity, unspecified; R94.31 Abnormal electrocardiogram [ECG] [EKG]; Z20.822 Contact with and (suspected) exposure to COVID-19; Z79.82 Long term (current) use of aspirin; Z66 Do not resuscitate; R53.1 Weakness; Z20.818 Contact with and (suspected) exposure to other bacterial communicable diseases; I50.9 Heart failure, unspecified; I51.3 Intracardiac thrombosis, not elsewhere classified; Z68.41 Body mass index [BMI] 40.0-44.9, adult; D72.829 Elevated white blood cell count, unspecified; I25.2 Old myocardial infarction; R79.89 Other specified abnormal findings of blood chemistry; E11.621 Type 2 diabetes mellitus with foot ulcer; D64.9 Anemia, unspecified; Z79.4 Long term (current) use of insulin; I07.1 Rheumatic tricuspid insufficiency; L97.522 Non-pressure chronic 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; I11.0 Hypertensive heart disease with heart failure

== ENCOUNTER 2024-09-29 16:42 | Inpatient (IN) ==
--- OUTSIDE RECORDS SUMMARY | 2024-09-29 17:11 | EXTERNAL MEDICAL SUMMARY RPT | Continuity of Care Document ---
Author Organization [facility] Address [address] [place] [id number] Phone Problems date description facility 2024-08-19 12:38 Transient alteration of awarene ss [facility] 2024-09-09 15:55 Local infection of t he skin and subcutaneous tissue, unspecified [facility] 2024-09-12 15:06 Type 2 diabetes mellitus with h yperglycemia [facility] 2024-09-12 15:06 Local infection of t he skin and subcutaneous tissue, unspecified [facility] 2024-09-12 15:06 Non-pressure chronic 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 [facility] 2024-09-13 13:14 Type 2 diabetes mellitus with f oot ulcer [facility] 2024-09-13 13:14 Non-pressure chronic ulcer of other part of unspecified foot with unspecified severity [facility] 2024-09-16 12:01 Type 2 diabetes mellitus with f oot ulcer [facility] 2024-09-16 12:01 Non-pressure chronic ulcer of other part of unspecified foot with unspecified severity [facility] 2024-09-25 09:15 Acute respiratory failure with hypoxia [facility] 2024-09-25 09:42 Acute respiratory failure with hypoxia [facility] 2024-09-25 10:34 Acute respiratory failure with hypoxia [facility] 2024-09-26 06:44 Type 2 diabetes mellitus with f oot ulcer [facility] 2024-09-26 06:44 Essential (primary) hypertensio n [facility] 2024-09-26 06:44 Acute respiratory failure with hypoxia [facility] 2024-09-26 06:44 Non-pressure chronic ulcer of other part of unspecified foot with unspecified severity [facility] 2024-09-26 06:44 Weakness [facility] 2024-09-26 06:44 custodial (current) use of insu eric [facility] 2024-09-26 06:55 Type 2 diabetes mellitus with f oot ulcer [facility] 2024-[facility]-26 06:55 Essential (primary) hypertensio n [facility] 2024-09-26 06:55 Acute respiratory failure with hypoxia [facility] 2024-09-26 06:55 Non-pressure chronic ulcer of other part of unspecified foot with unspecified severity [facility] 2024-09-26 06:55 Weakness [facility] 2024-09-26 06:55 custodial (current) use of [place] [facility] 2024-09-26 11:33 Type 2 diabetes mellitus with f oot ulcer [facility] 2024-09-26 11:33 Essential (primary) hypertensio n [facility] 2024-09-26 11:33 Heart failure, unspecified [facility] 2024-09-26 11:33 Intracardiac thrombosis, not el sewhere classified [facility] 2024-09-26 11:33 Acute respiratory failure with hypoxia [facility] 2024-09-26 11:33 Non-pressure chronic ulcer of other part of unspecified foot with unspecified severity [facility] 2024-09-26 11:33 Weakness [facility] 2024-09-26 11:33 custodial (current) use of [place] [facility] 2024-09-27 05:19 Type 2 diabetes mellitus with f oot ulcer [facility] 2024-09-27 05:19 Essential (primary) hypertensio n [facility] 2024-09-27 05:19 Heart failure, unspecified [facility] 2024-09-27 05:19 Intracardiac thrombosis, not el sewhere classified [facility] 2024-09-27 05:19 Acute respiratory failure with hypoxia [facility] 2024-09-27 05:19 Non-pressure chronic ulcer of other part of unspecified foot with unspecified severity [facility] 2024-09-27 05:19 Weakness [facility] 2024-09-27 05:19 intermission coordinator (current) use of [facility] 2024-09-27 11:42 Type 2 diabetes mellitus with f oot ulcer [facility] 2024-09-27 11:42 Essential (primary) hypertensio n [facility] 2024-09-27 11:42 Heart failure, unspecified [facility] 2024-09-27 11:42 Intracardiac thrombosis, not el sewhere classified [facility] 2024-09-27 11:42 Acute respiratory failure with hypoxia [facility] 2024-09-27 11:42 Non-pressure chronic ulcer of other part of unspecified foot with unspecified severity [facility] 2024-09-27 11:42 Weakness [facility] 2024-09-27 11:42 custodial (current) use of insu [facility] 2024-09-27 12:05 Type 2 diabetes mellitus with f oot ulcer [facility] 2024-[facility]-27 12:05 Essential (primary) hypertensio n [facility] 2024-09-27 12:05 Heart failure, unspecified [facility] 2024-09-27 12:05 Intracardiac thrombosis, not el sewhere classified [facility] 2024-09-27 12:05 Acute respiratory failure with hypoxia [facility] 2024-09-27 12:05 Non-pressure chronic ulcer of other part of unspecified foot with unspecified severity [facility] 2024-09-27 12:05 Weakness [facility] 2024-09-27 12:05 custodial (current) use of insu [facility] 2024-09-27 12:23 Type 2 diabetes mellitus with f oot ulcer [facility] 2024-09-27 12:23 Essential (primary) hypertensio n [facility] 2024-09-27 12:23 Heart failure, unspecified [facility] 2024-09-27 12:23 Intracardiac thrombosis, not el sewhere classified [facility] 2024-09-27 12:23 Acute respiratory failure with hypoxia [facility] 2024-09-27 12:23 Non-pressure chronic ulcer of other part of unspecified foot with unspecified severity [facility] 2024-09-27 12:23 Weakness [facility] 2024-09-27 12:23 intermission coordinator (current) use of insu eric [facility] 2024-09-27 13:47 Type 2 diabetes mellitus with f oot ulcer [facility] 2024-09-27 13:47 Essential (primary) hypertensio n [facility] 2024-09-27 13:47 Heart failure, unspecified [facility] 2024-09-27 13:47 Intracardiac thrombosis, not el sewhere classified [facility] 2024-09-27 13:47 Acute respiratory failure with hypoxia [facility] 2024-09-27 13:47 Non-pressure chronic ulcer of other part of unspecified foot with unspecified severity [facility] 2024-09-27 13:47 Weakness [facility] 2024-09-27 13:47 custodial (current) use of [place] [facility] [facility] 2024-09-28 11:08 Hypoglycemia, unspecified [facility] Results/Labs test date facility value unit notes Result panel 1 CUL,WOUND (AEROBIC) 2024-09-09 14:30 [facility] (missing) (missing) (missing) CUL,WOUND (AEROBIC) 2024-09-09 14:30 [facility] 2+ MIXED Skin [place] Present. No further workup will be (missing) (missing) CUL,WOUND (AEROBIC) 2024-09-09 14:30 [facility] CULTURE IN PROGRESS. RESULTS TO FOLLOW. (missing) (missing) CUL,WOUND (AEROBIC) 2024-09-09 14:30 [facility] FEW GRAM POSITIVE COCCI IN PAIRS (missing) (missing) CUL,WOUND (AEROBIC) 2024-09-09 14:30 [facility] GRAM STAIN: (missing) (missing) CUL,WOUND (AEROBIC) 2024-09-09 14:30 [facility] RARE WHITE BLOOD CELLS (missing) (missing) CUL,WOUND (AEROBIC) 2024-09-09 14:30 [facility] performed on this culture. (missing) (missing) Result panel 2 ESTIMATED AVERAGE GLUCOSE 2024-09-12 14:56 [facility] 18 6 mg/dl (missing) HEMOGLOBIN A1c% 2024-09-12 14:56 [facility] 8.1 % Social History date description facility
--- NOTE | 2024-09-29 17:33 | ED Physician Documentation ---
History of Present Illness Stated complaint Stated Complaint: WOUND LT FOOT, AMS Chief complaint Chief Complaint: General History obtained from History obtained from: Patient and Family Additonal information Additional information: 73-year-old gentleman presents with his . He has a history of HFrEF with EF of 25%, diabetes type 2 with foot ulcers, history of streptococcal bacteremia. He was admitted to the hospital on September 25 for weakness and pedal edema. It sounds like there was a recommendation that he go to a SNF which was declined by patient. He did well in the hospital and was prescribed metoprolol and Jardiance. This is in addition to his other medications. He was also supposed to increase his Lasix from 20 mg a day up to 40 mg a day. They went home a few days ago. They did not start the new medications because the was worried about the side effect listed of diarrhea and they had a lot of things to do including a trip to wound care today. The wound care physician was worried about him and referred him to the emergency department. I did not directly view his wounds as he had fresh excellent dressings from wound care, but the was able to show me pictures of the wounds which include a deep ulcer under what looks like probably the left metatarsal head on the pedal surface, at the more mild wounds of the left great toe and some cellulitis of the left branch. He is s hort of breath. Denies fevers. Meds/Allgy Home Medications Ambulatory Orders Medication Instructions Recorded Confirmed lisinopril 10 mg tablet (Zestril) 10 mg PO DAILY 04/1109/25/24 metformin 500 mg tablet 1,000 mg PO BIDWM 04/11/21 0 09/25/24 pen needle, diabetic 31 gauge x ##30 04/15/21 09/25/2402/11" Focus Factor 1 tab PO DAILY 07/10/2109/09 aspirin 81 mg tablet,delayed 81 mg PO DAILY 07/10/21 0 09/25/24 release cholecalciferol (vitamin D3) 25 25 mcg PO DAILY 09/25/24 mcg (1,000 unit) tablet insulin glargine 100 unit/mL (3 100 unit subcut DAILY 07/10/21 09/25/24 mL) subcutaneous pen (Lantus Solostar U-100 Insulin) gabapentin 300 mg capsule 300 mg PO QPM 09/09/2409/25 cyanocobalamin (vitamin B-12) 1,000 mcg PO DAILY 09/2509/25/24 1,000 mcg capsule vitamin B complex (Vitamins B 1 cap PO DAILY 09/25/24 09/25/24 Complex capsule) empagliflozin 10 mg tablet 10 mg PO DAILY #30 tabs (Jardiance) furosemide 20 mg tablet 40 mg (2 x 20 mg) PO DAILY # 60 tabs 09/27/24 09/25/24 metoprolol succinate 25 mg 25 mg PO DAILY #30 tabs tablet,extended release 24 hr Allergies Allergies Allergy/AdvReac Type Severity Reaction Status Date / Time No Known Drug Allergies Allergy Verified 09/29/24 17:03 PFS Active Problems All Active Problems (Updated 09/29/24 @ 18:14 by Daniel Pascal MD) Non-pressure chronic ulcer left lower leg, limited to breakdown skin (Acute) Non-pressure chronic ulcer right lower leg, limited to breakdown skin (Acute) Venous insufficiency of both lower extremities (Acute) Diabetic foot ulcer associated with diabetes mellitus due to underlying condition (Acute) LV (left ventricular) mural thrombus (Acute) New onset of congestive heart failure (Acute) Acute hypoxic respiratory failure (Acute) Non-pressure chronic 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 (Acute) Streptococcal bacteremia (Acute) Wound of left foot (Acute) Altered mental status (Acute) Type 2 diabetes mellitus with hyperglycemia (Acute) Fever (Acute) Hyperglycemia (Acute) Pneumonia (Acute) Medical History Medical History (Updated 09/29/24 @ 18:14 by Daniel Pascal MD) Non-ST elevation [place] (NSTEMI) Congestive heart failure Type 2 diabetes mellitus with foot ulcer Hypertension Generalized weakness Social History Social History If you are a former smoker, when did you quit? (Date/Year): 1970 Number of Years Smoked: 35 How many cigarettes a day do you smoke? (20 cigarettes=1 Pk): 80 Second hand tobacco smoke exposure: No Living arrangement: At home Living Condition: With spouse/s.o. Level: Dependent Do you feel safe in your home environment?: Yes History of physical, verbal, emotional, or financial abuse?: No Substance Use: over the counter (eg: immodium) Substance Use Details: ASA POLST Patient has POLST: No Exam Exam Vital Signs: Vital Signs x48h Temp Pulse Resp BP Pulse Ox 09/29/24 17:31 98 20 92/55 L 96 09/29/24 17:02 36.4 C L 105 H 20 121/69 96 Constitutional normal general appearance and no apparent distress Respiratory Mildly labored breathing, mild Rales at both bases. Cardiovascular Mild resting tachycardia, regular without murmur Gastrointestinal abdomen soft to palpation and nontender to palpation Extremities Legs freshly dressed, see HPI Neurology GCS 15 Results Vitals Vitals: Vital Signs - 24 hr 09/29/24 16:17 09/29/24 17:02 09/29/24 17:31 Temperature 36.4 C L Temperature Source Temporal Artery Scan Pulse Rate 105 H 98 Respiratory Rate 20 20 Blood Pressure 121/69 92/55 L O2 Saturation 96 96 O2 Source Room air Room air Room air Pain Intensity 3 4 Oxygen O2 Source Room air Labs Labs: Laboratory Tests 09/29/24 09/29/24 17:37 18:09 WBC 12.9 H RBC 4.27 L Hgb 10.1 L Hct 34.7 L MCV 81.3 MCH 23.7 L MCHC 29.1 L RDW 17.6 H Plt Count 207 MPV 9.7 Neut # (Auto) 10.5 H Lymph # (Auto) 1.3 L [place] # (Auto) 1.0 Eos # (Auto) 0.0 Baso # (Auto) 0.0 Absolute Nucleated RBC 0.00 Nucleated RBC % 0.0 ESR 70 H Sodium 138 Potassium 4.3 Chloride 101 Carbon Dioxide 29 Anion Gap 8.0 BUN 24 H Creatinine 1.0 Estimated GFR (MDRD) 73 L Glucose 188 H Lactic Acid 1.1 Calcium 9.4 Total Bilirubin 0.9 AST 21 ALT 19 Alkaline Phosphatase 91 C-Reactive Protein 8.4 H B-Natriuretic Peptide 1049 H Total Protein 6.7 Albumin 3.6 Globulin 3.1 Albumin/Globulin Ratio 1.2 Procalcitonin Immunoas 0.06 Rads (name of study) Single view chest x-ray is unremarkable: Relevant Findings:: Final report received and EMP independent interpretation of test (NAD) PD Medical Decision Making ED course ED course: 73-year-old gentleman re presents to the emergency department due to a combination of worsening diabetic foot ulcer causing inability to ambulate and medical noncompliance when previously a SNF was recommended. He does fit sepsis criteria with soft blood pressure, tachycardia, and white count with an source being his left foot infection. X-ray of that site does not demonstrate plain film evidence of osteomyelitis. His foot wound was cultured in the wound care clinic. No results available at this time. He did have a prior wound culture done on September 11 that grew mixed skin page. He was cultured up and given Zosyn and vancomycin. His BNP is about the same as prior. CBC showing leukocytosis and stable moderate anemia. CMP showing stable CKD and hyperglycemia. Spoke with MERLY Montez and Dr. Aguilar for admission at 6:10 PM. Discharge Plan Discharge Patient Disposition: ED Place in Observation Condition: Stable Clinical Impression: Non-pressure chronic 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 Type 2 diabetes mellitus with hyperglycemia Qualifiers: Diabetes mellitus shelter insulin use: without shelter use Qualified Code(s): E11.65 - Type 2 diabetes mellitus with hyperglycemia Prescriptions: No Action metformin 500 MG tablet 1,000 mg PO BIDWM Patient Comments: TAKE 1 TABLET BY MOUTH TWICE DAILY WITH MEALS lisinopril [Zestril] 10 MG tablet 10 mg PO DAILY Patient Comments: TAKE 1 TABLET BY MOUTH ONCE DAILY (DME) pen needle, diabetic 1 EACH needle 1 ea miscellaneous DAILY Qty: 30 0RF aspirin 81 MG tablet,delayed release (DR/EC) 81 mg PO DAILY cholecalciferol (vitamin D3) 25 MCG tablet 25 mcg PO DAILY Focus Factor Tablet 1 tab PO DAILY insulin glargine [Lantus Solostar U-100 Insulin] 100 UNIT/ML insulin pen 100 unit subcut DAILY gabapentin 300 mg capsule 300 mg PO QPM cyanocobalamin (vitamin B-12) 1,000 mcg capsule 1,000 mcg PO DAILY vitamin B complex [Vitamins B Complex] Capsule 1 cap PO DAILY metoprolol succinate 25 mg Tablet Extended Release 24 Hr 25 mg PO DAILY Qty: 30 0RF Jardiance 10 mg tablet 10 mg PO DAILY Qty: 30 2RF furosemide 20 mg tablet 40 mg PO DAILY Qty: 60 0RF Print Language: Malay Stand Alone Forms: PCP List
[2024-09-29 17:44] LABS: HCT - HEMATOCRIT 34.7 % (42.0-52.0); HGB - HEMOGLOBIN 10.1 g/dL (14.0-18.0); MEAN PLATELET VOLUME 9.7 fL (7.4-11.4); NRBC ABSOLUTE COUNT (AUTO) 0.00 x10^3/uL; NUCLEATED RED BLOOD CELLS AUTO 0.0 /100WBC; PLT - PLATELET COUNT 207 10^3/uL (130-450); RED CELL DISTRIBUTION WIDTH 17.6 % (12.0-15.0)
[2024-09-29 18:01] LABS: ALT ALANINE AMINOTRANSFERASE 19.0 IU/L (10-60); AST ASPARTATE AMINOTRANSFERASE 21.0 IU/L (10-42); BUN - BLOOD UREA NITROGEN 24.0 mg/dL (6-20); CARBON DIOXIDE - CO2 29.0 mmol/L (21-32); CREATININE 1.0 mg/dL (0.6-1.3); GFR - MDRD 73.0 (>89)
--- NOTE | 2024-09-29 18:04 | XRAY Report ---
PROCEDURE: XR Foot 3+V LT INDICATIONS: foot infection TECHNIQUE: 3 views of the foot were acquired. COMPARISON: None. FINDINGS: Bones: No fractures or dislocations. No plain film evidence of acute osteomyelitis. No suspicious bony lesions. Soft tissues: No tibiotalar joint effusion. Soft tissue swelling. Achilles tendon appears normal. IMPRESSION: No plain film evidence of acute osteomyelitis. Reviewed by: Marcos Unger MD on 09/29/2024 6:03 PM PDT Approved by: Marcos Unger MD on 09/29/2024 6:03 PM PDT Station ID: [id number]
[2024-09-29] MEDS: PIPERACILLIN/TAZOBACTAM 3.375 GM in SODIUM CHLORIDE 0.9% MINIBAG 100 ML IV STA (18:10)
--- NOTE | 2024-09-29 18:19 | XRAY Report ---
PROCEDURE: XR Chest 1V INDICATIONS: dyspnea TECHNIQUE: One view of the chest was acquired. COMPARISON: 09/24/2024. FINDINGS: Surgical changes and devices: None. Lungs and pleura: No pleural effusions or pneumothorax. No consolidation. Mediastinum: Mediastinal contours appear normal. Heart size is enlarged, unchanged. Bones and chest wall: No suspicious bony lesions. Overlying soft tissues appear unremarkable. IMPRESSION: No acute cardiopulmonary process. Reviewed by: Marcos Unger MD on 09/29/2024 6:17 PM PDT Approved by: Marcos Unger MD on 09/29/2024 6:17 PM PDT Station ID: [id number]
[2024-09-29] MEDS: VANCOMYCIN INJ 2 GM, VANCOMYCIN INJ 500 MG in SODIUM CHLORIDE 0.9% 500 ML IV ONE (18:48)
--- NOTE | 2024-09-29 19:25 | HISTORY & PHYSICAL EXAMINATION ---
Chief Complaint Chief Complaint Chief Complaint: Noncompliance with meds resulting in worse CHF and progression of diabetic History of Present Illness Admitted From Admitted From:: Home via the wound clinic History Obtained From Records Reviewed: Alex History obtained from: ER provider Exam Limitations: None History of Present Illness HPI Comment/Other: This is a 73-year-old gentleman who presented to our emergency room on September 25. He has a history of insulin-dependent diabetes mellitus, chronic venous insufficiency with chronic wounds of the left lower extremity that are followed by the wound clinic, and he came in because he is progressively short of breath over few months. Its gotten to the point where he is sofa bound and can barely get up and walk without dyspnea. He never had any previous cardiac disease and did not ever see a leather crafter. His last echocardiogram in July 2022 was a normal echo. After evaluation, we found him to be in acute systolic heart failure. His echo shows a new ejection fraction of 20 to 25%. He had mild elevation of troponins that we filled are demand ischemia and not from coronary artery disease with an NSTEMI. He was changed over to IV diuretics. Started on metoprolol 25 mg daily. He was kept on his home ARB. At discharge we told him that he needs to be on Jardiance for his congestive heart failure. We were also recommending that he follow-up with cardiology to get further workup for ischemic heart disease and be considered for the use of Entresto. He had marked decreased functional endurance and we recommended assisted facility placement for rehab. He said he could not do that. His was already home alone completely overwhelmed by taking care of the property and he wanted to go home. I told him that he was with a potentially lethal disease that if not managed quickly, could result in an early . He felt that his 's needs were more important and he acknowledged the risk he was taking. We then offered home health follow-up but again he stated his would not tolerate that. She would not want strangers in the house and he wanted to keep her happy. As such I reluctantly discharged him to home with follow-up with his PCP and to continue to get wound care. He needed a referral to cardiology. However, the patient opted not to do any of the regimen we prescribed. He stayed on his previous home medication because he did not want to have to deal with the bathroom, or diarrhea that the Jardiance could possibly cause. He was afraid that he would have to go to the bathroom a lot as he needed to go see all of these doctors further appointments. He went home Thursday night and was able to ambulate to the sofa and get up to go to the bathroom. Mentation normal. Thursday it was getting more difficult to get off the sofa and he was napping on the sofa most of the day. He required the assistance of his and he could barely get up. Thursday night he started having confusions, could not maintain a lucid thought process. This morning it took her 2 hours to get him off the sofa to just be able to sit and eat breakfast and take his meds. He has not eaten very much. He is usually a very good eater. Had half of a sandwich last night, and she tried to offer him the other half the stomach this morning he could barely eat it with some peaches. Completely confused. Finally got him to the car and drove to the hospital. She could barely get him into the wheelchair to [place] [facility] [place] He was able to sit up for most of his visit as they found a new and deeper wound on the pedal aspect of the left fourth toe. It went very deep. X-rays show that it is not involving bone. They debrided is much as they could. By the time they finished the wound and got him wrapped up in both legs, he could not sit up anymore. He had no truncal stability and that is when the [facility] [place] to the [place]. The was able to show pictures to the ER provider. He has deterioration of the skin over the left metatarsal head on the pedal surface. Cellulitis of the left branch. Loss of skin over the left skin from sloughing and a skin tear. The foot ulcer appears deeper than previous photos. In the emergency room temperature was 36.4, heart rate 105, respirations 20, 96% saturated on room air. And blood pressure 122/69. He did have a brief moment where his blood pressure dropped to 92/55 but it came back up again to 129/78. He was described as normal general appearance and in no distress. Mild resting tachycardia, mildly labored breathing and rales at both bases. The legs were freshly dressed. He has an elevated white cell count of 12.9, hemoglobin 10.1. Elevation of neutrophils. Sed rate is 70. Creatinine 1. C-reactive protein 8.4. BNP is 1049. His BNP on September 24 was 1207. As such the ER provider has asked us to place this patient in observation so that we can diurese him. And give IV antibiotics because of the elevated white cell count and worsening ulcer. In reviewing the chart, September 24 blood cultures were negative. September 09 wound culture had gram-positive cocci and 2+ skin page present on culture. Blood cultures April 12, 2021 were negative and were a repeat set because blood cultures from April 10, 2021 had strep Dysgalic or strep equism. At that time he was felt to have an infection severe enough to cause altered mental status, a diabetic foot ulcer wound. Meds/Allgy Home Medications Ambulatory Orders Medication Instructions Recorded Confirmed lisinopril 10 mg tablet (Zestril) 10 mg PO DAILY 04/1109/25/24 metformin 500 mg tablet 1,000 mg PO BIDWM 04/11/21 0 09/25/24 pen needle, diabetic 31 gauge x ##30 04/15/21 09/25/2402/11" Focus Factor 1 tab PO DAILY 07/10/2109/09 aspirin 81 mg tablet,delayed 81 mg PO DAILY 07/10/21 0 09/25/24 release cholecalciferol (vitamin D3) 25 25 mcg PO DAILY 09/25/24 mcg (1,000 unit) tablet insulin glargine 100 unit/mL (3 100 unit subcut DAILY 07/10/21 09/25/24 mL) subcutaneous pen (Lantus Solostar U-100 Insulin) gabapentin 300 mg capsule 300 mg PO QPM 09/09/2409/25 cyanocobalamin (vitamin B-12) 1,000 mcg PO DAILY 09/2509/25/24 1,000 mcg capsule vitamin B complex (Vitamins B 1 cap PO DAILY 09/25/24 09/25/24 Complex capsule) empagliflozin 10 mg tablet 10 mg PO DAILY #30 tabs (Jardiance) furosemide 20 mg tablet 40 mg (2 x 20 mg) PO DAILY # 60 tabs 09/27/24 09/25/24 metoprolol succinate 25 mg 25 mg PO DAILY #30 tabs tablet,extended release 24 hr Allergies Allergies Allergy/AdvReac Type Severity Reaction Status Date / Time No Known Drug Allergies Allergy Verified 09/29/24 17:03 [facility] Active Problems All Active Problems (Updated 09/29/24 @ 20:45 by Yanna Aguilar MD) Do not resuscitate (Acute) Acute on chronic systolic heart failure (Acute) Noncompliance (Acute) Sepsis (Acute) Non-pressure chronic ulcer left lower leg, limited to breakdown skin (Acute) Non-pressure chronic ulcer right lower leg, limited to breakdown skin (Acute) Diabetic foot ulcer associated with diabetes mellitus due to underlying condition (Acute) Altered mental status (Acute) Type 2 diabetes mellitus with hyperglycemia (Acute) Medical History Medical History (Updated 09/29/24 @ 20:45 by Yanna Aguilar MD) Venous insufficiency of both lower extremities Non-ST elevation [place] (NSTEMI) Congestive heart failure Type 2 diabetes mellitus with foot ulcer Hypertension Generalized weakness Social History Social History Smoking Status: Former smoker If you are a former smoker, when did you quit? (Date/Year): 1969 Number of Years Smoked: 35 How many cigarettes a day do you smoke? (20 cigarettes=1 Pk): 80 Second hand tobacco smoke exposure: No Living arrangement: At home Living Condition: With spouse/s.o. Level: Dependent Do you feel safe in your home environment?: Yes History of physical, verbal, emotional, or financial abuse?: No Substance Use: over the counter (eg: immodium) Substance Use Details: ASA POLST Patient has POLST: Yes POLST CPR Status: Do Not Attempt Resuscitation (DNAR) / Allow Natural Review of Systems is able to share that he has anorexia, but no fever or chills or rigors. Confusion started Thursday night and is progressed to today. Severe generalized weakness requiring two-person max assist to movement. Status of ROS: unobtainable due to mental status Prior Level of Functionality: Prior to last week's hospitalization he was slowly ambulatory. Able to still feed himself, dress himself. Since discharge on Thursday he started out able to get off the sofa and walk to the bathroom. By Thursday his needed to help him off the sofa. By Thursday night he was confused. This morning it is a two-person max assist. It took her 2 hours to get him off the sofa to the toilet. Started at 9:30 in the morning. Barely able to get him [place] [facility] [place] this afternoon's appointment. Exam Exam Vital Signs: Vital Signs x48h Temp Pulse Pulse Resp BP BP Pulse Ox 09/29/24 19:45 36.4 C L 96 16 125/73 98 09/29/24 19:03 36.5 C 93 20 129/78 96 09/29/24 17:31 98 20 92/55 L 96 09/29/24 17:02 36.4 C L 105 H 20 121/69 96 Pleasant, cooperative, remembers me in is able to to tell me my name. Speech is slightly slurred, but sentence structure is slightly fragmented and he loses track of what he wants to say. Morbidly obese, slightly tachypneic and use of accessory muscles but able to lay on his back. states she read his paperwork from discharge and acknowledges that a lot of his thought process at discharge had to do with her philosophy. But she recognizes that he needs help and she is going to have to change things. Constitutional Morbidly obese, 5 foot 7, 122.4 kg. Balding, long white da silva and mustache. Cooperative during my exam and able to work with the RN to roll him [id number] to examine his skin. HENMT normocephalic and head/scalp atraumatic Eyes PERRL and conjunctivae normal Neck/C-Spine supple Chest Large barrel chest, mild tachypnea and uses abdominal muscles to breathe and to talk but does not get worse in speaking to me Respiratory Distant, distant respiratory breath sounds. But no crackles or rhonchi or wheezing. Cardiovascular normal heart rate noted and regular rhythm noted Distant cardiac tones, no murmur. No right ventricular left. I can barely feel the left ventricular PMI laterally displaced. I have to roll him over from [id number] to listen to his lungs and no true crackles for me. Gastrointestinal abdomen soft to palpation, nontender to palpation and nontender to percussion Very large abdominal pannus, ventral hernias in place. All reducible. Back/Pelvis spine normal to inspection ( was worried because he fell against a iron rack in their house today a) Extremities Both the legs are wrapped from feet all the way up to knee. I looked at pictures that she showed me. The left bottom of his foot at the fourth toe has a deep ulcer of unknown depth but it is a large hole with surrounding white eschar and then surrounding slight redness and granulation. No drainage. Adjacent to that underneath the fifth toe is a small bruised black area but no drainage or surrounding cellulitis. The left anterior branch has lost skin from sloughing of skin, and it is red, and appears slightly draining.Will need to review [facility] clinic notes for depth and size Neurology slat basket maker machine II-XII intact, no focal motor deficit noted and deep tendon reflexes 2+ bilaterally Speech is intact but sentence structure is fragmented, valiantly attempting to stay focused but cannot. Is oriented to person, place, situation but not to time. Will get easily confused. Psychiatry cooperative Sepsis Event Note (H) Evaluation Current Stage of Sepsis: Sepsis Possible source of Sepsis: positive Skin/soft tissue Sepsis Criteria Sepsis Criteria: Recorded Heart Rate greater than 90 bpm, WBC count greater than 10% bands, WBC count greater than 12,000 or less than 4000 and SHIPPING & RECEIVING LEAD: altered consciousness (unrelated to primary neuro pathology) Conclusion/Plan Problem List (1) Sepsis: Plan: He meets the preliminary criteria for sepsis. Lactic acid is normal. He does not have a fever. But he is altered, has an elevated white cell count, he is intermittently hypotensive, mildly tachycardic. Source would be the diabetic foot ulcer. Plan is observation status to see if he can turn the corner with antibiotics and IV diuresis. If he does not respond by tomorrow we will need to change him to inpatient status. Qualifiers: Sepsis acute organ dysfunction status: without acute organ dysfunction Sepsis type: sepsis due to unspecified organism Qualified Code(s): A41.9 - Sepsis, unspecified organism (2) Diabetic foot ulcer associated with diabetes mellitus due to underlying condition: Plan: Foot x-ray done in the ER does not have any evidence of osteomyelitis. He has soft tissue swelling. He has had blood cultures in the ER. I am starting him on empiric Zosyn and Vanc. I recognize the interaction between the 2 but I feel that there is a the appropriate antibiotics in a gentleman with diabetes. He is A1c September 12 was 8.1%. In April 2021 he was 11.2%. I have ordered a daily CBC, sed rate, and BMP to make sure that I am monitoring for vent toxicity and avoid nephrotoxicity. 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 They dreaded the idea that he may have diarrhea due to the medication so they just did not give him the new medication. But the barriers to access for health care still exist. He is due to see his primary care provider tomorrow. But the impression she was getting was at the cardiology referral was going to be too the [facility], [facility]. She is hoping they can get him to [place] which is closer. I will try calling [facility] tomorrow as well as [facility] to see if I can get an appointment for him in [place]. She is willing to go to [place] and I will then add [facility] to that phone call if the first 2 cannot get him in sooner. (4) Type 2 diabetes mellitus with hyperglycemia: Plan: He is glucose in the emergency room was 188. He is theoretically on 100 units at home. I am going to start him on 20 at night, with sliding scale insulin. describes poor p.o. intake. He jokes with me this evening that he is willing to eat ice cream but I told him was probably not a great idea right now. I have encouraged him to please drink plenty of water. I am going to start him on a carbohydrate restricted diet. Qualifiers: Diabetes mellitus senior living insulin use: without exterminator use Q ualified Code(s): E11.65 - Type 2 diabetes mellitus with hyperglycemia (5) Acute on chronic systolic heart failure: Plan: Mild tachypnea, mild use of accessory muscles. He is 96% on room air. I cannot use Jardiance here because is not on formulary. But I will give him Lasix 40 mg IV push, Zestril 10 mg daily, metoprolol 25 mg daily. I will monitor with daily weights, and urine output and adjust his Lasix as needed. I will also get a daily BN P and BM P to monitor potassium and creatinine. (6) Do not resuscitate: Plan: We spoke about his risk of V. tach because of a low ejection fraction. I said that some of the things that his leather crafter may describe is an AICD. We had spoke about it at his last visit. With that conversation he filled a POLST form and he is a DO NOT RESUSCITATE. We revisited that issue tonight. He confirms that he still DO NOT RESUSCITATE and the POLST form from last visit is still accurate. Lab Results Lab results reviewed: Yes 09/29/24 17:37 09/29/24 17:37 Diagnostic Imaging Results Diagnostic Imaging Results: positive Final report reviewed Core Measures Anticipated LOS I expect patient to be DC'd or transferred within 96 hours.: Yes DVT/VTE - Prophylaxis VTE/DVT Prophylaxis med ordered at admit?: Yes
[2024-09-29] MEDS ORDERED: ONDANSETRON 4 MG/2 ML VIAL IVP PRN (19:44)
[2024-09-29] MEDS ORDERED: ONDANSETRON ODT 4 MG TABLET TL PRN (19:44)
[2024-09-29] MEDS ORDERED: HYDROmorphone 0.5 MG/0.5 ML SYRINGE IVP PRN (19:44)
[2024-09-29] MEDS ORDERED: oxyCODONE 5 MG TABLET PO PRN (19:44)
[2024-09-29] MEDS: SODIUM CHLORIDE 0.9% 1,000 ML IV SCH (22:10)
[2024-09-29] MEDS: INSULIN LISPRO 300 UNIT/3 ML PEN SUBQ SCH (22:10)
[2024-09-29] MEDS: FUROSEMIDE 40 MG/4 ML VIAL IVP SCH (22:10)
[2024-09-29] MEDS: PIPERACILLIN/TAZOBACTAM 3.375 GM in SODIUM CHLORIDE 0.9% MINIBAG 100 ML IV SCH (22:10)
[2024-09-29] MEDS: INSULIN GLARGINE-YFGN 300 UNIT/3 ML PEN SUBQ SCH (22:11)
[2024-09-30] MEDS: SODIUM CHLORIDE FLUSH 0.9% 10 ML SYRINGE IVP SCH (00:16)
[2024-09-30 05:56] LABS: HCT - HEMATOCRIT 33.7 % (42.0-52.0); HGB - HEMOGLOBIN 10.0 g/dL (14.0-18.0); MEAN PLATELET VOLUME 9.6 fL (7.4-11.4); NRBC ABSOLUTE COUNT (AUTO) 0.00 x10^3/uL; NUCLEATED RED BLOOD CELLS AUTO 0.0 /100WBC; PLT - PLATELET COUNT 219 10^3/uL (130-450); RED CELL DISTRIBUTION WIDTH 17.7 % (12.0-15.0)
[2024-09-30 06:19] LABS: CRP - C-REACTIVE PROTEIN 9.4 mg/dL (<0.5)
[2024-09-30 06:23] LABS: BUN - BLOOD UREA NITROGEN 24.0 mg/dL (6-20); CARBON DIOXIDE - CO2 31.0 mmol/L (21-32); CREATININE 1.1 mg/dL (0.6-1.3); GFR - MDRD 65.0 (>89)
[2024-09-30] MEDS: PIPERACILLIN/TAZOBACTAM 3.375 GM in SODIUM CHLORIDE 0.9% MINIBAG 100 ML IV SCH ×2 (06:47→06:56)
[2024-09-30] MEDS: INSULIN LISPRO 300 UNIT/3 ML PEN SUBQ SCH (08:12)
[2024-09-30] MEDS: ASPIRIN EC 81 MG TABLET PO SCH (08:15)
[2024-09-30] MEDS: ENOXAPARIN 40 MG/0.4 ML SYRINGE SUBQ SCH (08:15)
[2024-09-30] MEDS: METOPROLOL SUCCINATE 25 MG TABLET PO SCH (08:15)
--- NOTE | 2024-09-30 09:53 | PROVIDER PROGRESS NOTE ---
Subjective Subjective Subjective: This morning, patient states he feels better than yesterday. He states his weakness has gotten better. He denies any fevers or chills. He understands that SNF is recommended, however, he would like home with home health. He has already been choice. Current Medications Current Medications Current Medications: Current Medications Generic Name Dose Route Start Last Admin Trade Name Freq PRN Reason Stop Dose Admin Acetaminophen 650 mg 09/29/24 19:44 Acetaminophen 325 Mg Tablet PO Q4HR PRN Pain 1 to 4, or Fever Aspirin 81 mg 09/30/24 09:00 09/30/24 08:15 Aspirin Ec 81 Mg Tablet PO 81 mg DAILY DIMA Administration Enoxaparin Sodium 40 mg 09/30/24 09:00 09/30/24 08:15 Enoxaparin 40 Mg/0.4 Ml Syringe SUBQ 40 mg DAILY DIMA Administration Furosemide 40 mg 09/29/24 19:44 09/30/24 06:48 Furosemide 40 Mg/4 Ml Vial IVP 40 mg BIDDIURETIC DIMA Administration Hydromorphone HCl 0.5 mg 09/29/24 19:44 Hydromorphone 0.5 Mg/0.5 Ml Syringe IVP Q2H PRN Pain 8 to 10 Vancomycin HCl 1.5 gm/ Sodium 500 mls @ 250 mls/hr 09/30/24 18:00 Chloride IV Q24H DIMA Piperacillin Sod/Tazobactam 100 mls @ 25 mls/hr 09/30/24 06:00 09/30/24 06:47 Sod 3.375 gm/ Sodium Chloride IV 25 mls/hr Q8H DIMA Administration Insulin Glargine-yfgn 20 unit 09/29/24 21:00 09/29/24 22:11 Insulin Glargine-Yfgn 300 Unit/3 Ml Pen SUBQ 20 unit QPM DIMA Administration Insulin Human Lispro 5 unit 09/30/24 08:00 09/30/24 08:12 Insulin Lispro 300 Unit/3 Ml Pen SUBQ 5 unit TIDWM DIMA Administration Protocol Insulin Human Lispro 1 - 9 unit 09/29/24 21:00 09/30/24 08:13 Insulin Lispro 300 Unit/3 Ml Pen SUBQ 1 unit 0800,1200,1700,2100 DIMA Administration Protocol Lisinopril 10 mg 09/30/24 09:00 09/30/24 08:15 Lisinopril 5 Mg Tablet PO 10 mg DAILY DIMA Administration Metoprolol Succinate 25 mg 09/30/24 09:00 09/30/24 08:15 Metoprolol Succinate 25 Mg Tablet PO 25 mg DAILY DIMA Administration Ondansetron HCl 4 mg 09/29/24 19:44 Ondansetron Odt 4 Mg Tablet TL Q6HR PRN Nausea / Vomiting Ondansetron HCl 4 mg 09/29/24 19:44 Ondansetron 4 Mg/2 Ml Vial IVP Q6HR PRN Nausea / Vomiting Oxycodone HCl 5 mg 09/29/24 19:44 Oxycodone 5 Mg Tablet PO Q4HR PRN Pain 5 to 7 Sodium Chloride 10 ml 09/29/24 19:44 Sodium Chloride Flush 0.9% 10 Ml Syringe IVP PRN PRN NEEDED PER PROVIDER ORDERS Sodium Chloride 10 ml 09/30/24 01:00 09/30/24 08:15 Sodium Chloride Flush 0.9% 10 Ml Syringe IVP 10 ml 0100,0900,1700 DIMA Administration Objective Vital Signs/Intake & Output Reviewed Vital Signs: Yes Vital Signs: Vital Signs x48h Temp Pulse Resp BP Pulse Ox 09/30/24 07:59 97.3 F L 79 20 109/58 L 99 09/30/24 05:07 97.9 F 84 20 110/56 L 95 Intake & Output: Intake & Output 09/27/24 09/28/24 09/29/24 09/30/24 23:59 23:59 23:59 23:59 Intake Total 700 / 700 1000 / 1000 Output Total 400 / 400 1050 / 1050 Balance 300 / 300 -50 / -50 Weight (kg) 120.5 kg Objective General Appearance: positive Alert, Mild distress and Other (Mild respiratory distress, with some belly breathing noted.); negative No acute distress or Anxious Eyes Bilateral: positive Normal inspection, PERRL and EOMI ENT: positive ENT inspection nml and Pharynx nml Neck: positive Nml inspection, Thyroid nml and No JVD Respiratory: positive Chest non-tender and Other (Mild bibasilar crackles noted, right worse than left); negative Wheezes or Rales Cardiovascular: positive Regular rate & rhythm, No murmur and No gallop; negative Tachycardia or Systolic murmur Abdomen: positive Non-tender, No organomegaly and No distention; negative Guarding or Splenomegaly Back: positive Nml inspection; negative CVA tenderness (R) or CVA tenderness (L) Skin: positive Dry Extremities: positive Other (2+ pitting edema, hyperpigmentation due to stasis changes, left lower extremity with open wound with no active purulence noted) Neurologic/Psychiatric: positive Oriented x3, Motor nml and Mood/affect nml Lab Results 09/30/24 05:07 09/30/24 05:07 Other Labs: Lab Results x24hrs 09/30/24 09/30/24 09/30/24 Range/Units 07:32 07:01 06:43 WBC (4.8-10.8) x10^3/uL RBC (4.70-6.10) 10^6/uL Hgb (14.0-18.0) g/dL Hct (42.0-52.0) % MCV (80.0-94.0) fL MCH (27.0-31.0) pg MCHC (32.0-36.0) g/dL RDW (12.0-15.0) % Plt Count (130-450) 10^3/uL MPV (7.4-11.4) fL Neut # (Auto) (1.5-6.6) 10^3/uL Lymph # (Auto) (1.5-3.5) 10^3/uL Brule # (Auto) (0.0-1.0) 10^3/uL Eos # (Auto) (0.0-0.7) 10^3/uL Baso # (Auto) (0.0-0.1) 10^3/uL Absolute Nucleated RBC x10^3/uL Nucleated RBC % /100WBC ESR (0-20) mm/Hr Sodium (135-145) mmol/L Potassium (3.5-4.5) mmol/L Chloride (101-111) mmol/L Carbon Dioxide (21-32) mmol/L Anion Gap (6-13) BUN (6-20) mg/dL Creatinine (0.6-1.3) mg/dL Estimated GFR (MDRD) (>89) Glucose (74-104) mg/dL POC Whole Bld Glucose 148 106 75 (70-100) mg/dL Lactic Acid (0.5-2.2) mmol/L Calcium (8.5-10.3) mg/dL Total Bilirubin (0.2-1.0) mg/dL AST (10-42) IU/L ALT (10-60) IU/L Alkaline Phosphatase (42-121) IU/L C-Reactive Protein (<0.5) mg/dL B-Natriuretic Peptide (5-100) pg/mL Total Protein (6.4-8.9) g/dL Albumin (3.2-5.5) g/dL Globulin (2.1-4.2) g/dL Albumin/Globulin Ratio (1.0-2.2) Procalcitonin Immunoas (<0.5) ng/mL 09/30/24 09/29/24 09/29/24 Range/Units 05:07 20:23 18:09 WBC 11.2 H (4.8-10.8) x10^3/uL RBC 4.13 L (4.70-6.10) 10^6/uL Hgb 10.0 L (14.0-18.0) g/dL Hct 33.7 L (42.0-52.0) % MCV 81.6 (80.0-94.0) fL MCH 24.2 L (27.0-31.0) pg MCHC 29.7 L (32.0-36.0) g/dL RDW 17.7 H (12.0-15.0) % Plt Count 219 (130-450) 10^3/uL MPV 9.6 (7.4-11.4) fL Neut # (Auto) 8.4 H (1.5-6.6) 10^3/uL Lymph # (Auto) 1.6 (1.5-3.5) 10^3/uL Brule # (Auto) 1.1 H (0.0-1.0) 10^3/uL Eos # (Auto) 0.1 (0.0-0.7) 10^3/uL Baso # (Auto) 0.1 (0.0-0.1) 10^3/uL Absolute Nucleated RBC 0.00 x10^3/uL Nucleated RBC % 0.0 /100WBC ESR 70 H (0-20) mm/Hr Sodium 140 (135-145) mmol/L Potassium 3.6 (3.5-4.5) mmol/L Chloride 102 (101-111) mmol/L Carbon Dioxide 31 (21-32) mmol/L Anion Gap 7.0 (6-13) BUN 24 H (6-20) mg/dL Creatinine 1.1 (0.6-1.3) mg/dL Estimated GFR (MDRD) 65 L (>89) Glucose 47 L* (74-104) mg/dL POC Whole Bld Glucose 141 (70-100) mg/dL Lactic Acid (0.5-2.2) mmol/L Calcium 9.1 (8.5-10.3) mg/dL Total Bilirubin (0.2-1.0) mg/dL AST (10-42) IU/L ALT (10-60) IU/L Alkaline Phosphatase (42-121) IU/L C-Reactive Protein 9.4 H 8.4 H (<0.5) mg/dL B-Natriuretic Peptide 1075 H (5-100) pg/mL Total Protein (6.4-8.9) g/dL Albumin (3.2-5.5) g/dL Globulin (2.1-4.2) g/dL Albumin/Globulin Ratio (1.0-2.2) Procalcitonin Immunoas (<0.5) ng/mL 09/29/24 Range/Units 17:37 WBC 12.9 H (4.8-10.8) x10^3/uL RBC 4.27 L (4.70-6.10) 10^6/uL Hgb 10.1 L (14.0-18.0) g/dL Hct 34.7 L (42.0-52.0) % MCV 81.3 (80.0-94.0) fL MCH 23.7 L (27.0-31.0) pg MCHC 29.1 L (32.0-36.0) g/dL RDW 17.6 H (12.0-15.0) % Plt Count 207 (130-450) 10^3/uL MPV 9.7 (7.4-11.4) fL Neut # (Auto) 10.5 H (1.5-6.6) 10^3/uL Lymph # (Auto) 1.3 L (1.5-3.5) 10^3/uL Brule # (Auto) 1.0 (0.0-1.0) 10^3/uL Eos # (Auto) 0.0 (0.0-0.7) 10^3/uL Baso # (Auto) 0.0 (0.0-0.1) 10^3/uL Absolute Nucleated RBC 0.00 x10^3/uL Nucleated RBC % 0.0 /100WBC ESR (0-20) mm/Hr Sodium 138 (135-145) mmol/L Potassium 4.3 (3.5-4.5) mmol/L Chloride 101 (101-111) mmol/L Carbon Dioxide 29 (21-32) mmol/L Anion Gap 8.0 (6-13) BUN 24 H (6-20) mg/dL Creatinine 1.0 (0.6-1.3) mg/dL Estimated GFR (MDRD) 73 L (>89) Glucose 188 H (74-104) mg/dL POC Whole Bld Glucose (70-100) mg/dL Lactic Acid 1.1 (0.5-2.2) mmol/L Calcium 9.4 (8.5-10.3) mg/dL Total Bilirubin 0.9 (0.2-1.0) mg/dL AST 21 (10-42) IU/L ALT 19 (10-60) IU/L Alkaline Phosphatase 91 (42-121) IU/L C-Reactive Protein (<0.5) mg/dL B-Natriuretic Peptide 1049 H (5-100) pg/mL Total Protein 6.7 (6.4-8.9) g/dL Albumin 3.6 (3.2-5.5) g/dL Globulin 3.1 (2.1-4.2) g/dL Albumin/Globulin Ratio 1.2 (1.0-2.2) Procalcitonin Immunoas 0.06 (<0.5) ng/mL Sepsis Event Note (H) Evaluation Current Stage of Sepsis: Sepsis Possible source of Sepsis: positive Skin/soft tissue Sepsis Criteria Sepsis Criteria: Recorded Heart Rate greater than 90 bpm, WBC count greater than 10% bands, WBC count greater than 12,000 or less than 4000 and SPACE CONTROLLER: altered consciousness (unrelated to primary neuro pathology) Assessment/Plan Problem List (1) Sepsis: Impression: On admission, patient was confused, tachycardic, as well as hypotensive. He also had a leukocytosis. Source of sepsis was the diabetic foot ulcer. Continue IV Lasix, IV Zosyn, IV vancomycin. Wound culture has been sent, and preliminary report shows gram-positive cocci, gram-negative bacillus. His white count has improved. Will switch to inpatient for 1 more day of IV antibiotics and normalization of white count, as well as final wound culture results. Blood cultures with no growth to date. Qualifiers: Sepsis acute organ dysfunction status: without acute organ dysfunction Sepsis type: sepsis due to unspecified organism Qualified Code(s): A41.9 - Sepsis, unspecified organism (2) Diabetic foot ulcer associated with diabetes mellitus due to underlying condition: Impression: X-ray of the foot does not show any evidence of osteomyelitis. Zosyn and vancomycin have been started. Continue to monitor ESR, CRP daily. If uptrending, will obtain MRI Of foot. 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 Needs outpatient follow-up with cardiology. (4) Type 2 diabetes mellitus with foot ulcer: Impression: Per patient, he takes 100 units of Lantus in the morning, as well as a sliding scale insulin. He has been having hypoglycemic episodes at home, so decreased his dose to 20 units at night, and added a sliding scale insulin. Hypoglycemic protocol in place. Qualifiers: Diabetes mellitus prison insulin use: with terminal operator use Qualified Code(s): E11.621 - Type 2 diabetes mellitus with foot ulcer; L97.509 - Non- pressure chronic ulcer of other part of unspecified foot with unspecified severity; Z79.4 - retirement (current) use of insulin (5) Hypertension: Impression: Continue lisinopril. Metoprolol added for GDMT. Qualifiers: Hypertension type: unspecified Qualified Code(s): I10 - Essential (primary) hypertension (6) Generalized weakness: Impression: Could largely be related to this new onset congestive heart failure. Once patient has been diuresed effectively, will need PT eval to determine placement. However, patient has already refused SNF. Plan for HHC and placement.
[2024-09-30] MEDS: ACETAMINOPHEN 325 MG TABLET PO PRN (13:20)
--- NOTE | 2024-09-30 14:50 | WOUND CARE PROGRESS NOTE ---
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 Have also reviewed ER and hospitalist notes. Orders generated yesterday appropriate for out pt care but with new dx of probable sepsis, believe wounds need to be evaluated daily. Have adjusted the wound care orders for floor nurses to utilize. Will have them remove the 2 layer compression wraps as ROSARIO Clifford stated they were becoming looser as fluid has moved out. Will have them initiate the following plan- Cleanse legs with warm water/normal saline, dry with gauze. LLE- gentamicin to small medial distal ulcer, oil emulsion gauze, ABD pad prn for exudate, secure with 2 full rolls of 4 inch rolled gauze/Kerlix, applying with mild snugness; should still be able to see the waffle texture of the Kerlix but without loose wrap edges. Start at the base of the toes, incorporating feet and calf area up to 2 fingers below posterior knee crease. Then place 2 rolls of 4 inch Huey wraps, base of toes to just below knee crease. Huey wraps should be placed with mild compression to hold gauze in place and to continue slow movement of fluid from the legs back into circulation. Prior to placing the Kerlix/Huey wraps, L hallux ulcer and L plantar 4th MTH ulcer will need to be placed. Cleanse ulcers with NS, dry with gauze. Dampen short pieces of 1/4 inch packing gauze with dilute Dakin's solution, then tuck into both the L hallux ulcer (over the toenail) and the plantar foot ulcer. Cover with gauze. Secure with rolled gauze, incorporating into the Kerlix wrap listed above. With daily drsg changes, all sites will be evaluated daily and can be monitored more effectively for indications of worsening. Utilizing mild compression with Kerlix/Huey wraps with daily application will also help with continued movement of fluid from the legs. Pt may need surgical debridement of the plantar ulcer to remove all of the nonviable tissue to better eradicate the necrotic tissue in a more timely manner. Will defer to hospitalist's subsequent evaluations now that drsg will be changed daily. Based on my observations of the pt and his spouse and their interactions yesterday, believe pt would be best served by going to a ch[facility] facility until he has recovered strength and endurance. Pt's spouse was somewhat resistant to the idea of HH RN going in to their house. Based on the discussion with her, it sounds like there is significant clutter in the home. Informed her that the pt needs to be in a clutter free area so the HH RN is able to provide effective wound care in a safe environment. She did say that she could accomodate that. With that said, still believe pt would progress more quickly in a skilled facility with physical therapy opportunities and assistance to manage his toileting. I did not evaluate pt in person but have adjusted tx plan based on providing optimal care for the pt. Results Lab Results: Laboratory Results Sodium 140 mmol/L (135-145) 09/30/24 05:07 Potassium 3.6 mmol/L (3.5-4.5) 09/30/24 05:07 Chloride 102 mmol/L (101-111) 09/30/24 05:07 Carbon Dioxide 31 mmol/L (21-32) 09/30/24 05:07 Anion Gap 7.0 (6-13) 09/30/24 05:07 BUN 24 mg/dL (6-20) H 09/30/24 05:07 Creatinine 1.1 mg/dL (0.6-1.3) 09/30/24 05:07 Glucose 47 mg/dL (74-104) L* 09/30/24 05:07 Calcium 9.1 mg/dL (8.5-10.3) 09/30/24 05:07 Total Bilirubin 0.9 mg/dL (0.2-1.0) 09/29/24 17:37 AST 21 IU/L (10-42) 09/29/24 17:37 ALT 19 IU/L (10-60) 09/29/24 17:37 Alkaline Phosphatase 91 IU/L (42-121) 09/29/24 17:37 Total Protein 6.7 g/dL (6.4-8.9) 09/29/24 17:37 Albumin 3.6 g/dL (3.2-5.5) 09/29/24 17:37 Globulin 3.1 g/dL (2.1-4.2) 09/29/24 17:37 Albumin/Globulin Ratio 1.2 (1.0-2.2) 09/29/24 17:37 Exam Exam Vital Signs: Vital Signs x48h Temp Pulse Resp BP Pulse Ox 09/30/24 12:29 36.5 C 87 28 H 118/66 99 09/30/24 07:59 36.3 C L 79 20 109/58 L 99 Physician Wound Note Wound Note (Multiple) Bottom of L foot: Wound Type: Diabetic ulcer Classification: Full thickness Pre Measurements Pre Wound Surface Area: 0 cm sq Wound Description Wound Base: Eschar, Slough and Deutsch Exposed Structures: Adipose Exudate Type: Serous and Purulent Exudate Color: Yellow and Delgado Exudate Amount: Moderate Odor: Strong Periwound Condition: Erythema, Moist and Lesions Wound Comment(s): x2 diabetic ulcers on the bottom of L foot. light bulb replacer came to room and changed dressing by cleaning w/ saline, applying idoform strips to pack wound and covered w/ 4x4 gauze and kerlix, and wrapped w/ HUEY wrap. Wound RN stated they would put wound care orders in for staff to change dressings Qday. Awaiting orders Pain Pain Level: 0 #7 L lateral plantar foot: Classification: Full thickness Pre Measurements Pre Wound Surface Area: 0 cm sq Wound Description Pain Pain Level: 0
--- NOTE | 2024-09-30 16:20 | PHARMACY PROGRESS NOTE ---
Best Possible Medication History Admit Date and Time: 09/30/24 1240 Home Medications Medication Instructions Recorded Confirmed Type lisinopril 10 mg tablet (Zestril) 10 mg PO DAILY 04/1109/30/24 History pen needle, diabetic 31 gauge x ##30 04/15/21 09/25/24 Rx 1/3" Focus Factor 1 tab PO DAILY 07/10/212 04/05 History aspirin 81 mg tablet,delayed 81 mg PO DAILY 07/10/21 0 09/30/24 History release cholecalciferol (vitamin D3) 25 25 mcg PO DAILY 09/30/24 History mcg (1,000 unit) tablet insulin glargine 100 unit/mL (3 80 unit subcut DAILY 0 07/10/21 09/30/24 History mL) subcutaneous pen (Lantus Solostar U-100 Insulin) gabapentin 300 mg capsule 300 mg PO QPM 09/09/2409/30 History cyanocobalamin (vitamin B-12) 1,000 mcg PO DAILY 09/2509/30/24 History 1,000 mcg capsule vitamin B complex (Vitamins B 1 cap PO DAILY 09/25/24 09/30/24 History Complex capsule) empagliflozin 10 mg tablet 10 mg PO DAILY #30 tabs 09/30/24 Rx (Jardiance) furosemide 20 mg tablet 40 mg (2 x 20 mg) PO DAILY # 60 tabs 09/27/24 09/30/24 Rx metoprolol succinate 25 mg 25 mg PO DAILY #30 tabs 09/30/24 Rx tablet,extended release 24 hr metformin 1,000 mg tablet 1,000 mg PO BID 09/30/24 History Processed by: Pharmacy (Medication reconciliation completed by Rn TravelingMode) Medications reviewed in ED?: No Medication History completed: Yes Patient Interview: Pt unable to participate Secondary Source(s): Spouse/Significant other and Insurance records [facility] Statement: As the person ultimately responsible for medication therapy, providers are able to order a medication from an existing home medication list in [facility] via the "Reconcile Routine" prior to Confirmation of that medication by manager client support. Such practice is discouraged except when the physician, in their clinical judgment, deems that a medical need exists for a medication without regard to previous use.
[2024-09-30] MEDS: VANCOMYCIN INJ 1.5 GM in SODIUM CHLORIDE 0.9% 500 ML IV SCH (19:45)
[2024-09-30] MEDS ORDERED: SODIUM CHLORIDE 0.65% NASAL SPRAY NAS PRN (21:36)
[2024-09-30] MEDS: INSULIN GLARGINE-YFGN 300 UNIT/3 ML PEN SUBQ SCH (22:41)
--- NOTE | 2024-10-01 00:01 | PROVIDER PROGRESS NOTE ---
Rig Operator Note Rig Operator Note Rig Operator Note: per rn " Pt having some anxiety. Unable to lie flat. "Feels like I'm suffocating". VS WNL. O2 sat: 99% RA. RLL expiratory wheezes. Pt states he takes gabapentin HS. "I think it's 300mg capsule". Pt has severe peripheral neuropathy in BLE resulting in multiple wounds. I believe the gabapentin would help with his sleep/ anxiety; I do not think it is cardiac/pulmonary- he gets IV Lasix BID." gabapentin 300 mg x 1
[2024-10-01] MEDS: GABAPENTIN 300 MG CAPSULE PO ONE (01:16)
[2024-10-01] MEDS: SODIUM CHLORIDE FLUSH 0.9% 10 ML SYRINGE IVP PRN (06:45)
[2024-10-01 06:55] LABS: HCT - HEMATOCRIT 32.5 % (42.0-52.0); HGB - HEMOGLOBIN 9.6 g/dL (14.0-18.0); MEAN PLATELET VOLUME 9.5 fL (7.4-11.4); NRBC ABSOLUTE COUNT (AUTO) 0.00 x10^3/uL; NUCLEATED RED BLOOD CELLS AUTO 0.0 /100WBC; PLT - PLATELET COUNT 197 10^3/uL (130-450); RED CELL DISTRIBUTION WIDTH 17.5 % (12.0-15.0)
[2024-10-01 07:11] LABS: BUN - BLOOD UREA NITROGEN 24.0 mg/dL (6-20); CARBON DIOXIDE - CO2 31.0 mmol/L (21-32); CREATININE 1.3 mg/dL (0.6-1.3); CRP - C-REACTIVE PROTEIN 8.3 mg/dL (<0.5); GFR - MDRD 54.0 (>89)
--- NOTE | 2024-10-01 07:59 | Discharge Summary ---
Discharge Summary Admit Date: 09/29/24 Discharge Date: 10/02/24 Discharging Provider: Dr. Martha Odell Primary Care Provider: Dr. Narendra Kam Code Status: Do Not Attempt Resuscitation Discharge Facility Name: Home with Home Health DIAGNOSES Discharge Diagnoses with Status of Each Condition: Sepsison admission, patient was tachycardic, hypotensive, had a leukocytosis. Source was diabetic foot ulcer. He received 3 days of IV antibiotics with Zosyn and vancomycin. Preliminary wound culture shows Staph aureus, susceptibilities are pending. MRSA swab was negative. His leukocytosis and CRP have improved. He will complete weeks worth of oral antibiotics with Augmentin on discharge. He needs close follow-up with wound care clinic. Diabetic foot ulcersee above. Noncompliancepatient needs further and extensive counseling by PCP about importance of taking his GDMT for his heart failure and following up with cardiology for further invasive testing. Hypertensioncontinue lisinopril and metoprolol. Generalized weaknessplan is home physical therapy on discharge. HPI History of Present Illness: Per Dr. Aguilar: This is a 73-year-old gentleman who presented to our emergency room on September 25. He has a history of insulin-dependent diabetes mellitus, chronic venous insufficiency with chronic wounds of the left lower extremity that are followed by the wound clinic, and he came in because he is progressively short of breath over few months. Its gotten to the point where he is sofa bound and can barely get up and walk without dyspnea. He never had any previous cardiac disease and did not ever see a streetcar dispatcher. His last echocardiogram in July 2022 was a normal echo. After evaluation, we found him to be in acute systolic heart failure. His echo shows a new ejection fraction of 20 to 25%. He had mild elevation of troponins that we filled are demand ischemia and not from coronary artery disease with an NSTEMI. He was changed over to IV diuretics. Started on metoprolol 25 mg daily. He was kept on his home ARB. At discharge we told him that he needs to be on Jardiance for his congestive heart failure. We were also recommending that he follow-up with cardiology to get further workup for ischemic heart disease and be considered for the use of Entresto. He had marked decreased functional endurance and we recommended custodial facility placement for rehab. He said he could not do that. His was already home alone completely overwhelmed by taking care of the property and he wanted to go home. I told him that he was with a potentially lethal disease that if not managed quickly, could result in an early . He felt that his 's needs were more important and he acknowledged the risk he was taking. We then offered home health follow-up but again he stated his would not tolerate that. She would not want strangers in the house and he wanted to keep her happy. As such I reluctantly discharged him to home with follow-up with his PCP and to continue to get wound care. He needed a referral to cardiology. However, the patient opted not to do any of the regimen we prescribed. He stayed on his previous home medication because he did not want to have to deal with the bathroom, or diarrhea that the Jardiance could possibly cause. He was afraid that he would have to go to the bathroom a lot as he needed to go see all of these doctors further appointments. He went home Thursday night and was able to ambulate to the sofa and get up to go to the bathroom. Mentation normal. Thursday it was getting more difficult to get off the sofa and he was napping on the sofa most of the day. He required the assistance of his and he could barely get up. Thursday night he started having confusions, could not maintain a lucid thought process. This morning it took her 2 hours to get him off the sofa to just be able to sit and eat breakfast and take his meds. He has not eaten very much. He is usually a very good eater. Had half of a sandwich last night, and she tried to offer him the other half the stomach this morning he could barely eat it with some peaches. Completely confused. Finally got him to the car and drove to the hospital. She could barely get him into the wheelchair to get him to the [facility] clinic. He was able to sit up for most of his visit as they found a new and deeper wound on the pedal aspect of the left fourth toe. It went very deep. X-rays show that it is not involving bone. They debrided is much as they could. By the time they finished the wound and got him wrapped up in both legs, he could not sit up anymore. He had no truncal stability and that is when the [facility] clinic sent him to the ER. The was able to show pictures to the ER provider. He has deterioration of the skin over the left metatarsal head on the pedal surface. Cellulitis of the left branch. Loss of skin over the left skin from sloughing and a skin tear. The foot ulcer appears deeper than previous photos. In the emergency room temperature was 36.4, heart rate 105, respirations 20, 96% saturated on room air. And blood pressure 122/69. He did have a brief moment where his blood pressure dropped to 92/55 but it came back up again to 129/78. He was described as normal general appearance and in no distress. Mild resting tachycardia, mildly labored breathing and rales at both bases. The legs were freshly dressed. He has an elevated white cell count of 12.9, hemoglobin 10.1. Elevation of neutrophils. Sed rate is 70. Creatinine 1. C-reactive protein 8.4. BNP is 1049. His BNP on September 24 was 1207. As such the ER provider has asked us to place this patient in observation so that we can diurese him. And give IV antibiotics because of the elevated white cell count and worsening ulcer. In reviewing the chart, September 24 blood cultures were negative. September 09 wound culture had gram-positive cocci and 2+ skin page present on culture. Blood cultures April 12, 2021 were negative and were a repeat set because blood cultures from April 10, 2021 had strep Dysgalic or strep equism. At that time he was felt to have an infection severe enough to cause altered mental status, a diabetic foot ulcer wound. CONSULTS | PROCEDURES Consultations: Wound Care Procedures: Chest x-ray, foot x-ray HOSPITAL COURSE Hospital Course: Patient is a 73-year-old male with a history of recently diagnosed new onset systolic heart failure, diabetes with extensive diabetic foot ulcers who presented after weakness noted at wound care clinic. He was initially septic with a leukocytosis and tachycardia. He received 3 days of IV antibiotics with Zosyn and vancomycin with improvement of symptoms and labs. He will be transition to oral antibiotics to complete a weeks course. He will need close follow-up with wound care clinic. Was continued on IV diuresis while here, and will be switched to oral diuresis on discharge. He is on room air, with no respiratory complaints. With his decreased endurance, he would be a good candidate for SNF, but it would not be covered by his insurance as he has not had a 3 midnight stay. Plan is home with home health care. He needs extensive and close follow-up with multiple specialties including cardiology, PCP and wound care. ALLERGIES Allergies Allergy/AdvReac Type Severity Reaction Status Date / Time No Known Drug Allergies Allergy Verified 09/29/24 17:03 MEDICATIONS Ambulatory Orders Medication Instructions Recorded Confirmed lisinopril 10 mg tablet (Zestril) 10 mg PO DAILY 04/1109/30/24 pen needle, diabetic 31 gauge x ##30 04/15/21 09/25/2402/11" Focus Factor 1 tab PO DAILY 07/10/2109/10 aspirin 81 mg tablet,delayed 81 mg PO DAILY 07/10/21 0 09/30/24 release cholecalciferol (vitamin D3) 25 25 mcg PO DAILY 09/30/24 mcg (1,000 unit) tablet gabapentin 300 mg capsule 300 mg PO QPM 09/09/2409/30 cyanocobalamin (vitamin B-12) 1,000 mcg PO DAILY 09/2509/30/24 1,000 mcg capsule vitamin B complex (Vitamins B 1 cap PO DAILY 09/25/24 09/30/24 Complex capsule) empagliflozin 10 mg tablet 10 mg PO DAILY #30 tabs 09/30/24 (Jardiance) furosemide 20 mg tablet 40 mg (2 x 20 mg) PO DAILY # 60 tabs 09/27/24 09/30/24 metoprolol succinate 25 mg 25 mg PO DAILY #30 tabs 09/30/24 tablet,extended release 24 hr metformin 1,000 mg tablet 1,000 mg PO BID 09/30/24 insulin glargine-yfgn 100 unit/mL 10 unit (0.1 mL) sub cut QPM #15 mL 10/01/24 (3 mL) subcutaneous pen insulin lispro 100 unit/mL 5 unit (0.05 mL) subcut TID WM #15 10/01/24 subcutaneous pen (Humalog KwikPen mL (U-100) Insulin) Augmentin 875 mg-potassium 1 tab PO BID 4 days #8 tabs 10/02/24 clavulanate 125 mg tablet PHYSICAL EXAM AT DISCHARGE Vital Signs: Vital Signs x48h Temp Pulse Resp BP Pulse Ox 10/02/24 07:49 97.5 F L 83 20 130/75 96 General Appearance: positive Alert, No acute distress or Anxious Eyes Bilateral: positive Normal inspection, PERRL and EOMI ENT: positive ENT inspection nml and Pharynx nml Neck: positive Nml inspection, Thyroid nml and No JVD Respiratory: positive Chest non-tender; negative Wheezes or Rales Cardiovascular: positive Regular rate & rhythm, No murmur and No gallop; negative Tachycardia or Systolic murmur Abdomen: positive Non-tender, No organomegaly and No distention; negative Guarding or Splenomegaly Back: positive Nml inspection; negative CVA tenderness (R) or CVA tenderness (L) Skin: positive Dry Extremities: positive Other (2+ pitting edema, hyperpigmentation due to stasis changes, left lower extremity with open wound with no active purulence noted) Neurologic/Psychiatric: positive Oriented x3, Motor nml and Mood/affect nml LABS 10/02/24 05:45 10/02/24 05:45 SEPSIS Current Stage of Sepsis: Resolved Possible source of Sepsis: Skin/soft tissue Sepsis Criteria: Recorded Heart Rate greater than 90 bpm, WBC count greater than 10% bands, WBC count greater than 12,000 or less than 4000 and UNIVERSAL GRINDER SET UP OPERATOR: altered consciousness (unrelated to primary neuro pathology) FOLLOW UP Follow Up: Follow up PCP. Follow up cardiology. Follow up wound care. TIME SPENT Time Spent in Discharge (Minutes): 35 Discharge Plan Discharge Patient Disposition: 06 Home Health Service Condition: Stable Prescriptions: New insulin glargine-yfgn 100 unit/mL (3 mL) Insulin Pen 10 unit subcut QPM Qty: 15 0RF insulin lispro [Humalog KwikPen Insulin] 100 unit/mL Insulin Pen 5 unit subcut TIDWM Qty: 15 0RF amoxicillin-pot clavulanate 875-125 mg tablet 1 tab PO BID 4 Days Qty: 8 0RF Continued lisinopril [Zestril] 10 MG tablet 10 mg PO DAILY Patient Comments: TAKE 1 TABLET BY MOUTH ONCE DAILY (DME) pen needle, diabetic 1 EACH needle 1 ea miscellaneous DAILY Qty: 30 0RF aspirin 81 MG tablet,delayed release (DR/EC) 81 mg PO DAILY cholecalciferol (vitamin D3) 25 MCG tablet 25 mcg PO DAILY Focus Factor Tablet 1 tab PO DAILY gabapentin 300 mg capsule 300 mg PO QPM cyanocobalamin (vitamin B-12) 1,000 mcg capsule 1,000 mcg PO DAILY vitamin B complex [Vitamins B Complex] Capsule 1 cap PO DAILY metoprolol succinate 25 mg Tablet Extended Release 24 Hr 25 mg PO DAILY Qty: 30 0RF Patient Comments: states new med patient hasn't started yet. Jardiance 10 mg tablet 10 mg PO DAILY Qty: 30 2RF Patient Comments: stated new med but hasn't started yet. furosemide 20 mg tablet 40 mg PO DAILY Qty: 60 0RF metformin 1,000 mg tablet 1,000 mg PO BID Patient Comments: TAKE 1 TABLET BY MOUTH TWICE DAILY WITH MEALS Discontinued insulin glargine [Lantus Solostar U-100 Insulin] 100 UNIT/ML insulin pen 80 unit subcut DAILY Patient Comments: states patient has been taking 80 units for the past week. Activity Restrictions: Activity as Tolerated Diet: Regular Health Concerns: You came in because you were feeling very weak after your wound care appointment. You were found to have an infected wound. For this, we started you on IV antibiotics. Your infection numbers have gotten better. You will need to complete a course of oral antibiotics, for 4 more days. You will also need close follow-up with the wound care team. Please continue your water pill at home to help with some of that retention as well. We talked about potential options including going to rehab, or going home. Plan is for home with home health. Finally, I would like you to continue close follow-up with your primary care provider, Dr. Kam, and also establish care with a streetcar dispatcher. As we talked about, you will need further workup for why your heart function is so low including a possible cardiac catheterization or stress test. Finally, we worked on your insulin regimen. You only required 10 units of insulin at night, and then 5 units of insulin with meals during the day. Please continue to check your glucose 4 times a day, once first thing in the morning, then right before your meals, write this down in a log book, and bring it in with you to your next primary care appointment. We are glad you are feeling better, thanks for allowing us to care of you. Print Language: Tamazight Patient Instructions: Heart Failure Dc, ED Diet: Diabetes Stand Alone Forms: PCP List Follow-up Care: Narendra Kam MD [Primary Care Provider, Internal Medicine] Vitals documented within 30 minutes of discharge?: Yes
--- NOTE | 2024-10-01 14:56 | PROVIDER PROGRESS NOTE ---
Subjective Subjective Subjective: This morning, patient states he feels better than yesterday. He states his weakness has gotten better but he is still unable to get up on his own. He denies any fevers but is having some chills. Current Medications Current Medications Current Medications: Current Medications Generic Name Dose Route Start Last Admin Trade Name Freq PRN Reason Stop Dose Admin Acetaminophen 650 mg 09/29/24 19:44 10/01/24 02:53 Acetaminophen 325 Mg Tablet PO 650 mg Q4HR PRN Administration Pain 1 to 4, or Fever Aspirin 81 mg 09/30/24 09:00 10/01/24 08:27 Aspirin Ec 81 Mg Tablet PO 81 mg DAILY DIMA Administration Enoxaparin Sodium 40 mg 09/30/24 09:00 10/01/24 08:26 Enoxaparin 40 Mg/0.4 Ml Syringe SUBQ 40 mg DAILY DIMA Administration Furosemide 40 mg 09/29/24 19:44 10/01/24 06:43 Furosemide 40 Mg/4 Ml Vial IVP 40 mg BIDDIURETIC DIMA Administration Gabapentin 300 mg 10/01/24 21:00 Gabapentin 300 Mg Capsule PO QPM DIMA Hydromorphone HCl 0.5 mg 09/29/24 19:44 Hydromorphone 0.5 Mg/0.5 Ml Syringe IVP Q2H PRN Pain 8 to 10 Vancomycin HCl 1.5 gm/ Sodium 500 mls @ 250 mls/hr 09/30/24 18:00 09/30/24 22:55 Chloride IV Infused Q24H DIMA Infusion Piperacillin Sod/Tazobactam 100 mls @ 25 mls/hr 09/30/24 06:00 10/01/24 10:44 Sod 3.375 gm/ Sodium Chloride IV Infused Q8H DIMA Infusion Insulin Glargine-yfgn 10 unit 09/30/24 21:00 09/30/24 22:41 Insulin Glargine-Yfgn 300 Unit/3 Ml Pen SUBQ 10 unit QPM DIMA Administration Insulin Human Lispro 5 unit 09/30/24 08:00 10/01/24 12:17 Insulin Lispro 300 Unit/3 Ml Pen SUBQ 5 unit TIDWM DIMA Administration Protocol Insulin Human Lispro 1 - 9 unit 09/29/24 21:00 10/01/24 12:18 Insulin Lispro 300 Unit/3 Ml Pen SUBQ 3 unit 0800,1200,1700,2100 DIMA Administration Protocol Lisinopril 10 mg 09/30/24 09:00 10/01/24 08:26 Lisinopril 5 Mg Tablet PO 10 mg DAILY DIMA Administration Metoprolol Succinate 25 mg 09/30/24 09:00 10/01/24 08:27 Metoprolol Succinate 25 Mg Tablet PO 25 mg DAILY DIMA Administration Ondansetron HCl 4 mg 09/29/24 19:44 Ondansetron Odt 4 Mg Tablet TL Q6HR PRN Nausea / Vomiting Ondansetron HCl 4 mg 09/29/24 19:44 Ondansetron 4 Mg/2 Ml Vial IVP Q6HR PRN Nausea / Vomiting Oxycodone HCl 5 mg 09/29/24 19:44 Oxycodone 5 Mg Tablet PO Q4HR PRN Pain 5 to 7 Sodium Chloride 10 ml 09/29/24 19:44 10/01/24 06:45 Sodium Chloride Flush 0.9% 10 Ml Syringe IVP 10 ml PRN PRN Administration NEEDED PER PROVIDER ORDERS Sodium Chloride 10 ml 09/30/24 01:00 10/01/24 08:27 Sodium Chloride Flush 0.9% 10 Ml Syringe IVP Not Given 0100,0900,1700 [facility] Sodium Chloride 2 sprays 09/30/24 21:36 Sodium Chloride 0.65% Nasal [place] Q4HR PRN Nasal Congestion Objective Vital Signs/Intake & Output Reviewed Vital Signs: Yes Vital Signs: Vital Signs x48h Temp Pulse Resp BP Pulse Ox 10/01/24 07:35 97.3 F L 86 20 115/64 95 Intake & Output: Intake & Output 09/28/24 09/29/24 09/30/24 10/01/24 23:59 23:59 23:59 23:59 Intake Total 700 / 700 2019 440 / 440 Output Total 400 / 400 2725 / 2725 1270 / 1270 Balance 300 / 300 -705 / -705 -830 / -830 Weight (kg) 120.5 kg Objective General Appearance: positive Alert, Mild distress and Other (Mild respiratory distress, with some belly breathing noted.); negative No acute distress or Anxious Eyes Bilateral: positive Normal inspection, PERRL and EOMI ENT: positive ENT inspection nml and Pharynx nml Neck: positive Nml inspection, Thyroid nml and No JVD Respiratory: positive Chest non-tender and Other (Mild bibasilar crackles noted, right worse than left); negative Wheezes or Rales Cardiovascular: positive Regular rate & rhythm, No murmur and No gallop; negative Tachycardia or Systolic murmur Abdomen: positive Non-tender, No organomegaly and No distention; negative Guarding or Splenomegaly Back: positive Nml inspection; negative CVA tenderness (R) or CVA tenderness (L) Skin: positive Dry Extremities: positive Other (2+ pitting edema, hyperpigmentation due to stasis changes, left lower extremity with open wound with no active purulence noted) Neurologic/Psychiatric: positive Oriented x3, Motor nml and Mood/affect nml Lab Results 10/01/24 06:36 10/01/24 06:36 Other Labs: Lab Results x24hrs 10/01/24 10/01/24 10/01/24 Range/Units 12:24 11:08 08:35 WBC (4.8-10.8) x10^3/uL RBC (4.70-6.10) 10^6/uL Hgb (14.0-18.0) g/dL Hct (42.0-52.0) % MCV (80.0-94.0) fL MCH (27.0-31.0) pg MCHC (32.0-36.0) g/dL RDW (12.0-15.0) % Plt Count (130-450) 10^3/uL MPV (7.4-11.4) fL Neut # (Auto) (1.5-6.6) 10^3/uL Lymph # (Auto) (1.5-3.5) 10^3/uL [place] # (Auto) (0.0-1.0) 10^3/uL Eos # (Auto) (0.0-0.7) 10^3/uL Baso # (Auto) (0.0-0.1) 10^3/uL Absolute Nucleated RBC x10^3/uL Nucleated RBC % /100WBC Sodium (135-145) mmol/L Potassium (3.5-4.5) mmol/L Chloride (101-111) mmol/L Carbon Dioxide (21-32) mmol/L Anion Gap (6-13) BUN (6-20) mg/dL Creatinine (0.6-1.3) mg/dL Estimated GFR (MDRD) (>89) Glucose (74-104) mg/dL POC Whole Bld Glucose 207 137 (70-100) mg/dL Calcium (8.5-10.3) mg/dL Magnesium (1.7-2.3) mg/dL C-Reactive Protein (<0.5) mg/dL B-Natriuretic Peptide (5-100) pg/mL Nasal Screen MRSA (PCR) NEGATIVE (NEGATIVE) 10/01/24 10/01/24 09/30/24 Range/Units 07:27 06:36 20:49 WBC 9.9 (4.8-10.8) x10^3/uL RBC 4.01 L (4.70-6.10) 10^6/uL Hgb 9.6 L (14.0-18.0) g/dL Hct 32.5 L (42.0-52.0) % MCV 81.0 (80.0-94.0) fL MCH 23.9 L (27.0-31.0) pg MCHC 29.5 L (32.0-36.0) g/dL RDW 17.5 H (12.0-15.0) % Plt Count 197 (130-450) 10^3/uL MPV 9.5 (7.4-11.4) fL Neut # (Auto) 7.0 H (1.5-6.6) 10^3/uL Lymph # (Auto) 1.8 (1.5-3.5) 10^3/uL [place] # (Auto) 0.8 (0.0-1.0) 10^3/uL Eos # (Auto) 0.1 (0.0-0.7) 10^3/uL Baso # (Auto) 0.0 (0.0-0.1) 10^3/uL Absolute Nucleated RBC 0.00 x10^3/uL Nucleated RBC % 0.0 /100WBC Sodium 138 (135-145) mmol/L Potassium 3.9 (3.5-4.5) mmol/L Chloride 101 (101-111) mmol/L Carbon Dioxide 31 (21-32) mmol/L Anion Gap 6.0 (6-13) BUN 24 H (6-20) mg/dL Creatinine 1.3 (0.6-1.3) mg/dL Estimated GFR (MDRD) 54 L (>89) Glucose 83 (74-104) mg/dL POC Whole Bld Glucose 76 101 (70-100) mg/dL Calcium 9.0 (8.5-10.3) mg/dL Magnesium 2.2 (1.7-2.3) mg/dL C-Reactive Protein 8.3 H (<0.5) mg/dL B-Natriuretic Peptide 1165 H (5-100) pg/mL Nasal Screen MRSA (PCR) (NEGATIVE) 09/30/24 Range/Units 16:30 WBC (4.8-10.8) x10^3/uL RBC (4.70-6.10) 10^6/uL Hgb (14.0-18.0) g/dL Hct (42.0-52.0) % MCV (80.0-94.0) fL MCH (27.0-31.0) pg MCHC (32.0-36.0) g/dL RDW (12.0-15.0) % Plt Count (130-450) 10^3/uL MPV (7.4-11.4) fL Neut # (Auto) (1.5-6.6) 10^3/uL Lymph # (Auto) (1.5-3.5) 10^3/uL [place] # (Auto) (0.0-1.0) 10^3/uL Eos # (Auto) (0.0-0.7) 10^3/uL Baso # (Auto) (0.0-0.1) 10^3/uL Absolute Nucleated RBC x10^3/uL Nucleated RBC % /100WBC Sodium (135-145) mmol/L Potassium (3.5-4.5) mmol/L Chloride (101-111) mmol/L Carbon Dioxide (21-32) mmol/L Anion Gap (6-13) BUN (6-20) mg/dL Creatinine (0.6-1.3) mg/dL Estimated GFR (MDRD) (>89) Glucose (74-104) mg/dL POC Whole Bld Glucose 121 (70-100) mg/dL Calcium (8.5-10.3) mg/dL Magnesium (1.7-2.3) mg/dL C-Reactive Protein (<0.5) mg/dL B-Natriuretic Peptide (5-100) pg/mL Nasal Screen MRSA (PCR) (NEGATIVE) Sepsis Event Note (H) Evaluation Current Stage of Sepsis: Sepsis Possible source of Sepsis: positive Skin/soft tissue Sepsis Criteria Sepsis Criteria: Recorded Heart Rate greater than 90 bpm, WBC count greater than 10% bands, WBC count greater than 12,000 or less than 4000 and IMPLEMENTATION SERVICES ANALYST: altered consciousness (unrelated to primary neuro pathology) Assessment/Plan Problem List (1) Sepsis: Impression: On admission, patient was confused, tachycardic, as well as hypotensive. He also had a leukocytosis. Source of sepsis was the diabetic foot ulcer. Continue IV Lasix, IV Zosyn, IV vancomycin. Wound culture has been sent, and preliminary report shows gram-positive cocci, gram-negative bacillus. His white count has continued to improve. CRP remains elevated. Patient would benefit from an additional day of IV antibiotics as well as IV diuresis. Continue daily weights and strict intake and output monitoring. Blood cultures with no growth to date. Qualifiers: Sepsis type: sepsis due to unspecified organism Sepsis acute organ dysfunction status: without acute organ dysfunction Qualified Code(s): A41.9 - Sepsis, unspecified organism (2) Diabetic foot ulcer associated with diabetes mellitus due to underlying condition: Impression: X-ray of the foot does not show any evidence of osteomyelitis. Zosyn and vancomycin have been continued. Continue to monitor ESR, CRP daily. If uptrending, will obtain MRI of foot. 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 Needs outpatient follow-up with cardiology. (4) Type 2 diabetes mellitus with foot ulcer: Impression: Per patient, he takes 100 units of Lantus in the morning, as well as a sliding scale insulin. He has been having hypoglycemic episodes at home, so decreased his dose to 10 units at night, and added a sliding scale insulin. Hypoglycemic protocol in place. Has been doing well with this regimen while here. Qualifiers: Diabetes mellitus longwall machine operator helper insulin use: with longwall machine operator helper use Qualified Code(s): E11.621 - Type 2 diabetes mellitus with foot ulcer; L97.509 - Non- pressure chronic ulcer of other part of unspecified foot with unspecified severity; Z79.4 - FPC (current) use of insulin (5) Hypertension: Impression: Continue lisinopril. Metoprolol added for GDMT. Qualifiers: Hypertension type: unspecified Qualified Code(s): I10 - Essential (primary) hypertension (6) Generalized weakness: Impression: Could largely be related to this new onset congestive heart failure. Once patient has been diuresed effectively, will need PT eval to determine placement.
[2024-10-01] MEDS: GABAPENTIN 300 MG CAPSULE PO SCH (20:19)
[2024-10-02 06:01] LABS: HCT - HEMATOCRIT 33.5 % (42.0-52.0); HGB - HEMOGLOBIN 9.8 g/dL (14.0-18.0); MEAN PLATELET VOLUME 9.7 fL (7.4-11.4); NRBC ABSOLUTE COUNT (AUTO) 0.00 x10^3/uL; NUCLEATED RED BLOOD CELLS AUTO 0.0 /100WBC; PLT - PLATELET COUNT 206 10^3/uL (130-450); RED CELL DISTRIBUTION WIDTH 17.6 % (12.0-15.0)
[2024-10-02 06:19] LABS: BUN - BLOOD UREA NITROGEN 29.0 mg/dL (6-20); CARBON DIOXIDE - CO2 32.0 mmol/L (21-32); CREATININE 1.3 mg/dL (0.6-1.3); CRP - C-REACTIVE PROTEIN 8.4 mg/dL (<0.5); GFR - MDRD 54.0 (>89)
--- NOTE | 2024-10-02 16:57 | PT Plan of Care ---
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 Of note he was DCd from this facility on 09/28/24 after being admitted and treated for acute hypoxic RF, new onset of HF with EF 20-25%, and left ventricle mural thrombus. The patient also has B LE/foot wounds which he is being seen by wound care for. Please see chart for complete medical hx. The pt was received resting comfor tably sitting up in a recliner while visiting with his and presented today with fair/good B UE and LE strength, decreased activity tolerance, and impaired standing balance all of which limited his tolerance with functional mobility and increased his fall risk. His overall tolerance throughout this assessment was limited by fatigue. Much of this session was aimed at CG education to assist his in preparation for DC home. Bed mobility, transfer training with FWW, mock car transfers, retro curb step training with FWW, and safety cues throughout were performed and discussed with the pt and his . He demod an understanding of this education and she voiced an understanding, however, she also voiced concern about her ability to provide the required assist. At this time recommend continued skilled PT intervention while in the acute setting and DC home only if pt is able to receive all HH services (PT, OT, bath aide, RN and lift assist), otherwise he would benefit from DC to SNF for further rehab once medically stable. At the end of the session the pt was sitting up in a chair with call light in reach, chair alarm in place and on, and all needs met while visiting with his . MD, GLAUCOMA SPECIALIST, and DC senior program planner all updated on pt's status and DC rec. PATIENT/FAMILY GOALS Patient/Family Goals: I want to be stronger and not fall as frequently GOALS Improve supine to sit to:: Independent Improve sit to stand to:: Modified Independent Improve pivot transfer ability to:: Modified Independent Improve sit to supine to:: Independent Improve gait ability to:: SBA Advance Assistive Device to:: Front Wheeled Walker Increase distance walked to (in feet):: 50 PLAN Frequency: 1-2x/day Duration: Until discharge DISCHARGE RECOMMENDATIONS Discharge Location: [facility] vs SNF Support/Services Needed: With assist Other Discharge Equipment: bedside commode and bed rail if DC home Transport Needs at Discharge: Personal vehicle Other: Recommend DC home only if pt is able to receive all HH services (PT, OT, bath aide, RN and lift assist), otherwise he would benefit from DC to SNF for further rehab once medically stable
[2024-10-02 17:33] VITALS: BP 143/62; TEMP 98.1; O2SAT 98
== END 2024-10-02 16:29 | disposition home health service (06) | DRG 871 ==
LOC: ED 16:42 → MS3 16:42
PROVIDERS: ADMIT Specialist; ATTEND Specialist

== ENCOUNTER 2024-10-19 16:51 | Inpatient (IN) ==
--- OUTSIDE RECORDS SUMMARY | 2024-10-19 17:23 | EXTERNAL MEDICAL SUMMARY RPT | Continuity of Care Document ---
Author Organization [facility] Address [address] [place] [id number] Phone Problems date description facility 2024-08-19 12:38 Transient alteration of awarene ss [facility] 2024-09-09 15:55 Local infection of t he skin and subcutaneous tissue, unspecified [facility] 2024-09-12 15:06 Type 2 diabetes mellitus with h yperglycemia [facility] 2024-09-12 15:06 Local infection of t he skin and subcutaneous tissue, unspecified [facility] 2024-09-12 15:06 Non-pressure chronic 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 [facility] 2024-09-13 13:14 Type 2 diabetes mellitus with f oot ulcer [facility] 2024-09-13 13:14 Non-pressure chronic ulcer of other part of unspecified foot with unspecified severity [facility] 2024-09-16 12:01 Type 2 diabetes mellitus with f oot ulcer [facility] 2024-09-16 12:01 Non-pressure chronic ulcer of other part of unspecified foot with unspecified severity [facility] 2024-09-25 09:15 Acute respiratory failure with hypoxia [facility] 2024-09-25 09:42 Acute respiratory failure with hypoxia [facility] 2024-09-25 10:34 Acute respiratory failure with hypoxia [facility] 2024-09-26 06:44 Type 2 diabetes mellitus with f oot ulcer [facility] 2024-09-26 06:44 Essential (primary) hypertensio n [facility] 2024-09-26 06:44 Acute respiratory failure with hypoxia [facility] 2024-09-26 06:44 Non-pressure chronic ulcer of other part of unspecified foot with unspecified severity [facility] 2024-09-26 06:44 Weakness [facility] 2024-09-26 06:44 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 [facility] 2024-09-26 06:55 Type 2 diabetes mellitus [facility] 06:55 Essential (primary) hypertensio n [facility] 2024-09-26 06:55 Acute [facility] with hypoxia [facility] 06:55 Non-pressure chronic ulcer of other part of unspecified foot with unspecified severity [facility]24-09-26 06:55 Weakness [facility] 2024-09-26 06:55 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[employer] [facility] 2024-09-26 11:33 Type 2 diabetes mellitus with f oot ulcer [facility]-09-26 11:33 Essential (primary) hypertensio n [facility] 2024-09-26 11:33 Heart failure, unspecified [facility] 2024-09-26 11:33 Intracardiac thrombosis, not el sewhere classified [facility] 2024-09-26 11:33 Acute respiratory failure with hypoxia [facility] 2024-09-26 11:33 Non-pressure chronic ulcer of other part of unspecified foot with unspecified severity [facility]26 11:33 Weakness [facility] 2024-09-26 11:33 shelter (current) use of [employer] [facility] 2024-09-27 05:19 Type 2 diabetes mellitus with f oot ulcer [facility] 2024-09-27 05:19 Essential (primary) hypertensio n [facility] 2024-09-27 05:19 Heart failure, unspecified [facility] 2024-09-27 05:19 Intracardiac thrombosis, not el sewhere classified [facility] 2024-09-27 05:19 Acute respiratory failure with hypoxia [facility] 2024-09-27 05:19 Non-pressure chronic ulcer of other part of unspecified foot with unspecified severity [facility] 2024-09-27 05:19 Weakness [employer] [facility] 2024-09-27 05:19 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[employer] 2024-09-27 11:42 Type 2 diabetes mellitus with f oot ulcer [facility] 2024-09-27 11:42 Essential (primary) hypertensio n [facility] 2024-09-27 11:42 Heart failure, unspecified id [facility] 2024-09-27 11:42 Intracardiac thrombosis, not el sewhere classified [facility] 2024-09-27 11:42 Acute respiratory failure with hypoxia [facility] 2024-09-27 11:42 Non-pressure chronic ulcer of other part of unspecified foot with unspecified severity [facility] 2024-09-27 11:42 Weakness [employer] [facility] 2024-09-27 11:42 shelter (current) use of insu [facility] 2024-09-27 12:05 Type 2 diabetes mellitus with f [facility]ot ulcer [facility] 12:05 Essential (primary) hypertensio n [facility] 2024-09-27 12:05 Heart failure, unspecified [employer] 2024-09-27 12:05 Intracardiac thrombosis, not el sewhere classified [facility] 2024-09-27 12:05 Acute respiratory failure with hypoxia [facility] 2024-09-27 12:05 Non-pressure chronic ulcer of other part of unspecified foot with unspecified severity [facility] 2024-09-27 12:05 Weakness [facility] 2024-09-27 12:05 shelter (current) use of insu [facility] 2024-09-27 12:23 Type 2 diabetes mellitus with f oot ulcer [facility] 2024-09-27 12:23 Essential (primary) hypertensio n [employer] [facility] 2024-09-27 12:23 Heart failure, unspecified [facility] 2024-09-27 12:23 Intracardiac thrombosis, not el sewhere classified [facility] 2024-09-27 12:23 Acute respiratory failure with hypoxia [facility] 2024-09-27 12:23 Non-pressure chronic ulcer of other part of unspecified foot with unspecified severity [facility] 2024-09-27 12:23 Weakness [facility] 2024-09-27 12:23 shelter (current) use of insu eric [facility] 2024-09-27 13:47 Type 2 diabetes mellitus with f oot ulcer [facility] 2024-09-27 13:47 Essential (primary) hypertensio n [facility] 2024-09-27 13:47 Heart failure, unspecified [facility] 2024-09-27 13:47 Intracardiac thrombosis, not el sewhere classified [facility] 2024-09-27 13:47 Acute respiratory failure with hypoxia [facility] 2024-09-27 13:47 Non-pressure chronic ulcer of other part of unspecified foot with unspecified severity [facility] 2024-09-27 13:47 Weakness [facility] 2024-09-27 13:47 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 [facility] 2024-09-28 11:08 Hypoglycemia, unspecified [facility] 2024-09-29 16:19 Diabetes mellitus du e to underlying condition with foot ulcer [facility] 2024-09-29 16:19 Non-pressure chronic ulcer of other part of unspecified foot with unspecified severity [facility] 2024-09-29 16:19 Non-pressure chronic 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 [facility] 2024-09-29 16:21 Diabetes mellitus du e to underlying condition with foot ulcer [facility] 2024-09-29 16:21 Non-pressure chronic ulcer of other part of unspecified foot with unspecified severity [facility] 2024-09-29 16:21 Non-pressure chronic 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 [facility] 2024-09-29 16:22 Diabetes mellitus du e to underlying condition with foot ulcer [facility] 2024-09-29 16:22 Non-pressure chronic ulcer of other part of unspecified foot with unspecified severity [facility] 2024-09-29 16:22 Non-pressure chronic 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 [facility] 2024-09-29 17:03 Diabetes mellitus du e to underlying condition with foot ulcer [facility] 2024-09-29 17:03 Non-pressure chronic ulcer of other part of unspecified foot with unspecified severity [facility] 2024-09-29 18:43 Diabetes mellitus du e to underlying condition with foot ulcer [facility]24-[facility] 18:43 Heart failure, unspecified [facility] 2024-09-29 20:30 Diabetes mellitus du e to underlying condition with foot ulcer [facility] 2024-09-29 20:30 Heart failure, unspecified [facility] 2024-09-30 08:30 Sepsis, unspecified [facility] 08:30 Diabetes mellitus du e to underlying condition with foot ulcer [facility] 2024-09-30 08:30 Type 2 diabetes mellitus with h yperglycemia [facility] 2024-09-30 08:30 Acute on chronic systolic (mari estive) heart failure [facility] 2024-09-30 08:30 Heart failure, unspecified [facility] 2024-09-30 08:30 Non-pressure chronic ulcer of left heel and midfoot with necrosis of muscle [facility] 2024-09-30 08:30 Do not resuscitate status (Z66) [facility]30 08:30 Patient's noncomplia nce with other medical treatment and regimen due to unspecified reason [facility] 2024-09-30 09:57 Diabetes mellitus du e to underlying condition with foot ulcer [facility] 2024-09[facility]30 09:57 Type 2 diabetes mellitus with h yperglycemia [facility] 2024-09-30 09:57 Venous insufficiency (chronic) (peripheral) [facility]30 09:57 Non-pressure chronic ulcer of left heel and midfoot with necrosis of muscle [facility] 2024-09-30 09:57 Non-pressure chronic ulcer of other part of unspecified foot with unspecified severity [facility] 2024-09-30 09:57 Non-pressure chronic 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 [facility] 2024-09-30 09:57 Non-pressure chronic ulcer of unspecified part of right lower leg limited to breakdown of skin [facility] 2024-09-30 09:57 Non-pressure chronic ulcer of unspecified part of left lower leg limited to breakdown of skin [facility] 2024-09-30 13:30 Sepsis, unspecified [facility] 13:30 Diabetes mellitus du e to underlying condition with foot ulcer [facility] 2024-09-30 13:30 Type 2 diabetes mellitus with h yperglycemia [facility] 2024-09-30 13:30 Acute on chronic systolic (mari estive) heart failure [facility] 2024-09-30 13:30 Heart failure, unspecified [employer] [facility] 2024-09-30 13:30 Non-pressure chronic ulcer of left heel and midfoot with necrosis of muscle [facility] 2024-09-30 13:30 Non-pressure chronic ulcer of unspecified part of left lower leg limited to breakdown of skin [facility] 2024-09-30 13:30 Do not resuscitate status (Z66) [facility] 2024-[facility]30 13:30 Patient's noncomplia nce with other medical treatment and regimen due to unspecified reason [facility] 2024-09-30 14:22 Sepsis, unspecified [facility]30 14:22 Diabetes mellitus du e to underlying condition with foot ulcer [facility] 2024-09-30 14:22 Type 2 diabetes mellitus with h yperglycemia [facility] 2024-09-30 14:22 Acute on chronic systolic (mari estive) heart failure [facility] 2024-09-30 14:22 Heart failure, unspecified [facility] 2024-09-30 14:22 Non-pressure chronic ulcer of left heel and midfoot with necrosis of muscle [facility] 2024-09-30 14:22 Non-pressure chronic ulcer of unspecified part of left lower leg limited to breakdown of skin [facility] 2024-09-30 14:22 Do not resuscitate status (Z66) [facility] 2024-[facility]30 14:22 Patient's noncomplia nce with other medical treatment and regimen due to unspecified reason [facility] 2024-10-01 07:59 Sepsis, unspecified organism [facility] 2024-10-01 07:59 Diabetes mellitus du e to underlying condition with foot ulcer [facility] 2024-10-01 07:59 Type 2 diabetes mellitus with f oot ulcer [facility] 2024-10-01 07:59 Type 2 diabetes mellitus with h [facility]perglycemia [facility] 2024-10-01 07:59 Essential (primary) hypertensio n [employer] [facility] 2024-10-01 07:59 Acute on chronic systolic (mari estive) heart failure [facility] 2024-10-01 07:59 Heart failure, unspecified [facility] 2024-10-01 07:59 Non-pressure chronic ulcer of left heel and midfoot with necrosis of muscle [facility] 2024-10-01 07:59 Non-pressure chronic ulcer of other part of unspecified foot with unspecified severity [facility] 2024-10-01 07:59 Non-pressure chronic ulcer of unspecified part of left lower leg limited to breakdown of skin [facility] 2024-10-01 07:59 Weakness [facility] 2024-10-01 07:59 Do not resuscitate status (Z66) [facility] 2024-10-01 07:59 shelter (current) use of insu eric [facility] 2024-10-01 07:59 Patient's noncomplia nce with other medical treatment and regimen due to unspecified reason [facility] 2024-10-01 11:25 Sepsis, unspecified [facility] 11:25 Diabetes mellitus du e to underlying condition with foot ulcer [facility] 2024-10-01 11:25 Type 2 diabetes mellitus with f oot ulcer [facility] 2024-10-01 11:25 Type 2 diabetes mellitus with h yperglycemia [facility] 2024-10-01 11:25 Essential (primary) hypertensio n [facility] 2024-10-01 11:25 Acute on chronic systolic (mari estive) heart failure [facility] 2024-10-01 11:25 Heart failure, unspecified [employer] [facility] [place] 2024-10-01 11:25 Non-pressure chronic ulcer of left heel and midfoot with necrosis of muscle [facility] 2024-10-01 11:25 Non-pressure chronic ulcer of other part of unspecified foot with unspecified severity [facility] 2024-10-01 11:25 Non-pressure chronic ulcer of unspecified part of left lower leg limited to breakdown of skin [facility] 2024-10-01 11:25 [facility] 11:25 Do not resuscitate status (Z66) [facility] 2024-10-01 11:25 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 [facility] 2024-10-01 11:25 Patient's noncomplia nce with other medical treatment and regimen due to unspecified reason [facility] 2024-10-02 11:54 Sepsis, unspecified organism [facility] 2024-10-02 11:54 Diabetes mellitus du e to underlying condition with foot ulcer [facility] 2024-10-02 11:54 Type 2 diabetes mellitus with f oot ulcer [facility] 2024-10-02 11:54 Type 2 diabetes mellitus with h yperglycemia [facility] 2024-10-02 11:54 Essential (primary) hypertensio n [facility] 2024-10-02 11:54 Acute on chronic systolic (mari estive) heart failure [facility] 2024-10-02 11:54 Heart failure, unspecified [facility] 2024-10-02 11:54 Non-pressure chronic ulcer of left heel and midfoot with necrosis of muscle [facility] 2024-10-02 11:54 Non-pressure chronic ulcer of other part of unspecified foot with unspecified severity [facility] 2024-10-02 11:54 Non-pressure chronic ulcer of unspecified part of left lower leg limited to breakdown of skin [facility] 2024-10-02 11:54 Weakness [facility] 2024-10-02 11:54 Do not resuscitate status (Z66) [facility] 2024-10-02 11:54 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 [facility] 2024-10-02 11:54 Patient's noncomplia nce with other medical treatment and regimen due to unspecified reason [facility] 2024-10-02 13:12 Sepsis, unspecified [facility] 13:12 Diabetes mellitus du e to underlying condition with foot ulcer [facility] 2024-10-02 13:12 Type 2 diabetes mellitus with f oot ulcer [facility] 2024-10-02 13:12 Type 2 diabetes mellitus with h [facility]perglycemia [facility] 2024-10[facility]02 13:12 Essential (primary) hypertensio n [facility] 2024-10-02 13:12 Acute on chronic systolic (mari estive) heart failure [facility] 2024-10-02 13:12 Heart failure, unspecified [employer] [facility] [place] 2024-10-02 13:12 Non-pressure chronic ulcer of left heel and midfoot with necrosis of muscle [facility] 2024-10[facility]02 13:12 Non-pressure chronic ulcer of other part of unspecified foot with unspecified severity [facility] 2024-10-02 13:12 Non-pressure chronic ulcer of unspecified part of left lower leg limited to breakdown of skin [facility] 2024-10-02 13:12 Weakness [facility] 2024-10-02 13:12 Do not resuscitate status (Z66) [facility] 2024-[facility]-02 13:12 shelter (current) use of insu eric [facility] 2024-10-02 13:12 Patient's noncomplia nce with other medical treatment and regimen due to unspecified reason [facility] 2024-10-02 17:33 Sepsis, unspecified [facility] 17:33 Diabetes mellitus du e to underlying condition with foot ulcer [facility] 2024-10-02 17:33 Type 2 diabetes mellitus with f oot ulcer [facility] 2024-10-02 17:33 Type 2 diabetes mellitus with h yperglycemia [facility] 2024-10-02 17:33 Essential (primary) hypertensio n [facility] 2024-10-02 17:33 Acute on chronic systolic (mari estive) heart failure [facility] 2024-10-02 17:33 Heart failure, unspecified [employer] [facility] [place] 2024-10-02 17:33 Non-pressure chronic ulcer of left heel and midfoot with necrosis of muscle [facility] 2024-10-02 17:33 Non-pressure chronic ulcer of other part of unspecified foot with unspecified severity [facility] 2024-10-02 17:33 Non-pressure chronic ulcer of unspecified part of left lower leg limited to breakdown of skin [facility] 2024-10-02 17:33 Weakness [facility] 20[facility]02 17:33 Do not resuscitate status (Z66) [facility] 2024-10-02 17:33 shelter (current) use of insu eric [facility] 2024-10-02 17:33 Patient's noncomplia nce with other medical treatment and regimen due to unspecified reason [facility] 2024-10-03 14:46 Diabetes mellitus du e to underlying condition with foot ulcer [facility] 2024-10-03 14:46 Type 2 diabetes mellitus with h yperglycemia [facility] 2024-10-03 14:46 Venous insufficiency (chronic) (peripheral) [facility] 2024-10-03 14:46 Non-pressure chronic ulcer of left heel and midfoot with necrosis of muscle [facility] 2024-10-03 14:46 Non-pressure chronic ulcer of other part of unspecified foot with unspecified severity [facility] 2024-10-03 14:46 Non-pressure chronic 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 [facility] 2024-10-03 14:46 Non-pressure chronic ulcer of unspecified part of right lower leg limited to breakdown of skin [facility] 2024-10-03 14:46 Non-pressure chronic ulcer of unspecified part of left lower leg limited to breakdown of skin [facility] 2024-10-03 15:43 Diabetes mellitus du e to underlying condition with foot ulcer [facility] 2024-10-03 15:43 Type 2 diabetes mellitus with h yperglycemia [facility] 2024-10-03 15:43 Venous insufficiency (chronic) (peripheral) [facility] 2024-10-03 15:43 Non-pressure chronic ulcer of left heel and midfoot with necrosis of muscle [facility] 2024-10-03 15:43 Non-pressure chronic ulcer of other part of unspecified foot with unspecified severity [facility] 2024-10-03 15:43 Non-pressure chronic 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 [facility] 2024-10-03 15:43 Non-pressure chronic ulcer of unspecified part of right lower leg limited to breakdown of skin [facility] 2024-10-03 15:43 Non-pressure chronic ulcer of unspecified part of left lower leg limited to breakdown of skin [facility] 2024-10-04 08:21 Diabetes mellitus du e to underlying condition with foot ulcer [facility] 2024-10-04 08:21 Type 2 diabetes mellitus with h yperglycemia [facility] 2024-10-04 08:21 Venous insufficiency (chronic) (peripheral) [facility] 2024-10-04 08:21 Non-pressure chronic ulcer of left heel and midfoot with necrosis of muscle [facility] 2024-10-04 08:21 Non-pressure chronic ulcer of other part of unspecified foot with unspecified severity [facility] 2024-10-04 08:21 Non-pressure chronic 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 [facility] 2024-10-04 08:21 Non-pressure chronic ulcer of unspecified part of right lower leg limited to breakdown of skin [facility] 2024-10-04 08:21 Non-pressure chronic ulcer of unspecified part of left lower leg limited to breakdown of skin [facility] 2024-10-04 10:11 Unspecified abdominal pain [facility] 2024-10-11 16:26 Diabetes mellitus du e to underlying condition with foot ulcer [facility] 2024-10-11 16:26 Type 2 diabetes mellitus with h yperglycemia [facility] 2024-10-11 16:26 Venous insufficiency (chronic) (peripheral) [facility] 2024-10-11 16:26 Non-pressure chronic ulcer of left heel and midfoot with necrosis of muscle [facility] 2024-10-11 16:26 Non-pressure chronic ulcer of other part of unspecified foot with unspecified severity [facility] 2024-10-11 16:26 Non-pressure chronic 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 [facility] 2024-10-11 16:26 Non-pressure chronic ulcer of unspecified part of right lower leg limited to breakdown of skin [facility] 2024-10-11 16:26 Non-pressure chronic ulcer of unspecified part of left lower leg limited to breakdown of skin [facility] 2024-10-12 07:03 Sepsis, unspecified organism [facility] 2024-10-12 07:03 Diabetes mellitus du e to underlying condition with foot ulcer [facility] 2024-10-12 07:03 Type 2 diabetes mellitus with f oot ulcer [facility] 2024-10-12 07:03 Type 2 diabetes mellitus with h yperglycemia [facility] 2024-10-12 07:03 Essential (primary) hypertensio n [facility] 2024-10-12 07:03 Acute on chronic systolic (mari estive) heart failure [facility] 2024-10-12 07:03 Heart failure, unspecified [facility] 2024-10-12 07:03 Non-pressure chronic ulcer of left heel and midfoot with necrosis of muscle [facility] 2024-10-12 07:03 Non-pressure chronic ulcer of other part of unspecified foot with unspecified severity [facility] 2024-10-12 07:03 Non-pressure chronic ulcer of unspecified part of left lower leg limited to breakdown of skin [facility] 2024-10-12 07:03 Shortness of breath [facility] 2024-10-12 07:03 Weakness [facility] 2024-10-12 07:03 Do not resuscitate status (Z66) [facility] 2024-10-12 07:03 shelter (current) use of insu eric [facility] 2024-10-12 07:03 Patient's noncomplia nce with other medical treatment and regimen due to unspecified reason [facility] 2024-10-12 07:44 Sepsis, unspecified organism [facility] 2024-10-12 07:44 Diabetes mellitus du e to underlying condition with foot ulcer [facility] 2024-10-12 07:44 Type 2 diabetes mellitus with f oot ulcer [facility] 2024-10-12 07:44 Type 2 diabetes mellitus with h yperglycemia [facility] 2024-10-12 07:44 Essential (primary) [facility]ensio n [facility]12 07:44 Acute on chronic systolic (mari estive) heart failure [facility] 2024-10-12 07:44 Heart failure, unspecified [facility] [place] 2024-10-12 07:44 Non-pressure chronic ulcer of left heel and midfoot with necrosis of muscle [facility] 2024-10[facility]12 07:44 Non-pressure chronic ulcer of other part of unspecified foot with unspecified severity [facility] 2024-10-12 07:44 Non-pressure chronic ulcer of unspecified part of left lower leg limited to breakdown of skin [facility] 2024-10-12 07:44 [facility] 2024-[facility]-12 07:44 Altered mental status, unspecif ied [facility] 2024-10-12 07:44 Weakness [facility] 2024[facility]12 07:44 Do not resuscitate status (Z66) [facility] 2024-[facility]-12 07:44 shelter (current) use of insu eric [facility] 2024-10-12 07:44 Patient's noncomplia nce with other medical treatment and regimen due to unspecified reason [facility] 2024-10-12 09:25 Sepsis, unspecified organism [facility] 2024-10-12 09:25 Diabetes mellitus du e to underlying condition with foot ulcer [facility] 2024-10-12 09:25 Type 2 diabetes mellitus with f oot ulcer [facility] 2024-10-12 09:25 Type 2 diabetes mellitus with h yperglycemia [facility] 2024-10-12 09:25 Essential (primary) hypertensio n [facility] 2024-10-12 09:25 Acute on chronic systolic (mari estive) heart failure [facility] 2024-10-12 09:25 Heart failure, unspecified [facility] 2024-10-12 09:25 Non-pressure chronic ulcer of left heel and midfoot with necrosis of muscle [facility] 2024-10-12 09:25 Non-pressure chronic ulcer of other part of unspecified foot with unspecified severity [facility] 2024-10-12 09:25 Non-pressure chronic ulcer of unspecified part of left lower leg limited to breakdown of skin [facility] 2024-10-12 09:25 Shortness of breath [facility] 2024-10-12 09:25 Altered mental status, unspecif ied [facility] 2024-10-12 09:25 Weakness [facility] 2024-10-12 09:25 [facility] not resus[facility]ate [facility] (current) use of insu eric [facility] 2024-10-12 09:25 Patient's noncomplia nce with other medical treatment and regimen due to unspecified reason [facility] 2024-10-12 14:36 Diabetes mellitus du e to underlying condition with foot ulcer [facility] 2024-10-12 14:36 Type 2 diabetes mellitus with h yperglycemia [facility] 2024-10-12 14:36 Venous insufficiency (chronic) (peripheral) [facility] 2024-10-12 14:36 Non-pressure chronic ulcer of left heel and midfoot with necrosis of muscle [facility] 2024-10-12 14:36 Non-pressure chronic ulcer of other part of unspecified foot with unspecified severity [facility] 2024-10-12 14:36 Non-pressure chronic 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 [facility] 2024-10-12 14:36 Non-pressure chronic ulcer of unspecified part of right lower leg limited to breakdown of skin [facility] 2024-10-12 14:36 Non-pressure chronic ulcer of unspecified part of left lower leg limited to breakdown of skin [facility] 2024-10-12 14:57 Diabetes mellitus du e to underlying condition with foot ulcer [facility] 2024-10-12 14:57 Type 2 diabetes mellitus with h yperglycemia [facility] 2024-10-12 14:57 Venous insufficiency (chronic) (peripheral) [facility] 2024-10-12 14:57 Non-pressure chronic ulcer of left heel and midfoot with necrosis of muscle [facility] 2024-10-12 14:57 Non-pressure chronic ulcer of other part of unspecified foot with unspecified severity [facility] 2024-10-12 14:57 Non-pressure chronic 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 [facility] 2024-10-12 14:57 Non-pressure chronic ulcer of unspecified part of right lower leg limited to breakdown of skin [facility] 2024-10-12 14:57 Non-pressure chronic ulcer of unspecified part of left lower leg limited to breakdown of skin [facility] 2024-10-12 16:20 Diabetes mellitus du e to underlying condition with foot ulcer [facility] 2024-10-12 16:20 Type 2 diabetes mellitus with h yperglycemia [facility] 2024-10-12 16:20 Venous insufficiency (chronic) (peripheral) [facility] 2024-10-12 16:20 Non-pressure chronic ulcer of left heel and midfoot with necrosis of muscle [facility] 2024-10-12 16:20 Non-pressure chronic ulcer of other part of unspecified foot with unspecified severity [facility] 2024-10-12 16:20 Non-pressure chronic 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 [facility] 2024-10-12 16:20 Non-pressure chronic ulcer of unspecified part of right lower leg limited to breakdown of skin [facility] 2024-10-12 16:20 Non-pressure chronic ulcer of unspecified part of left lower leg limited to breakdown of skin [facility] Results/Labs test date facility value unit notes Result panel 1 CUL,WOUND (AEROBIC) 2024-09-09 14:30 [facility] (missing) (missing) (missing) CUL,WOUND (AEROBIC) 2024-09-09 14:30 [facility] 2+ MIXED Skin Bethany Present. No further workup will be (missing) (missing) CUL,WOUND (AEROBIC) 2024-09-09 14:30 [facility] CULTURE IN PROGRESS. RESULTS TO FOLLOW. (missing) (missing) CUL,WOUND (AEROBIC) 2024-09-09 14:30 [facility] FEW GRAM POSITIVE COCCI IN PAIRS (missing) (missing) CUL,WOUND (AEROBIC) 2024-09-09 14:30 [facility] GRAM STAIN: (missing) (missing) CUL,WOUND (AEROBIC) 2024-09-09 14:30 [facility] RARE WHITE BLOOD CELLS (missing) (missing) CUL,WOUND (AEROBIC) 2024-09-09 14:30 [facility] performed on this culture. (missing) (missing) Result panel 2 ESTIMATED AVERAGE GLUCOSE 2024-09-12 14:56 [facility] 18 6 mg/dl (missing) HEMOGLOBIN A1c% 2024-09-12 14:56 [facility] 8.1 % Social History date description facility
[2024-10-19 18:33] LABS: HCT - HEMATOCRIT 35.7 % (42.0-52.0); HGB - HEMOGLOBIN 11.0 g/dL (14.0-18.0); MEAN PLATELET VOLUME 9.4 fL (7.4-11.4); NRBC ABSOLUTE COUNT (AUTO) 0.00 x10^3/uL; NUCLEATED RED BLOOD CELLS AUTO 0.0 /100WBC; PLT - PLATELET COUNT 279 10^3/uL (130-450); RED CELL DISTRIBUTION WIDTH 19.3 % (12.0-15.0)
[2024-10-19 18:45] LABS: ALT ALANINE AMINOTRANSFERASE 14.0 IU/L (10-60); AST ASPARTATE AMINOTRANSFERASE 16.0 IU/L (10-42); BUN - BLOOD UREA NITROGEN 33.0 mg/dL (6-20); CARBON DIOXIDE - CO2 27.0 mmol/L (21-32); CREATININE 1.3 mg/dL (0.6-1.3); CRP - C-REACTIVE PROTEIN 18.1 mg/dL (<0.5); GFR - MDRD 54.0 (>89)
--- NOTE | 2024-10-19 19:09 | ED Physician Documentation ---
History of Present Illness Stated complaint Stated Complaint: LT FOOT PX Chief complaint Chief Complaint: Ext Problem History obtained from History obtained from: Patient and Family History of Present Illness Pain level max: 5 Pain level now: 4 Additonal information Additional information: Patient is a 73-year-old male history of diabetes and a chronic wound to the bottom of the left foot. He was admitted in September for sepsis secondary to foot infection. He received IV antibiotics and was home for 4 days on oral antibiotics. Has been off antibiotics for the past 2 weeks. He saw wound care today, Dr. Banuelos, he states that the patient needs to be admitted for IV antibiotics again. Patient reports fever last night, 101. Review of Systems Constitutional Reports: Fever and Chills Gastrointestinal Denies: Vomiting Integumentary/Breast Denies: Rash Meds/Allgy Home Medications Ambulatory Orders Medication Instructions Recorded Confirmed lisinopril 10 mg tablet (Zestril) 10 mg PO DAILY 04/1110/19/24 pen needle, diabetic 31 gauge x ##30 04/15/21 10/19/2402/11" Focus Factor 1 tab PO DAILY 07/10/2110/10 aspirin 81 mg tablet,delayed 81 mg PO DAILY 07/10/21 0 10/19/24 release gabapentin 300 mg capsule 300 mg PO QPM 09/09/2410/19 empagliflozin 10 mg tablet 10 mg PO DAILY #30 tabs 10/19/24 (Jardiance) furosemide 20 mg tablet 40 mg (2 x 20 mg) PO DAILY # 60 tabs 09/27/24 10/19/24 metoprolol succinate 25 mg 25 mg PO DAILY #30 tabs 10/19/24 tablet,extended release 24 hr metformin 1,000 mg tablet 1,000 mg PO BID 09/30/2412/03 insulin glargine-yfgn 100 unit/mL 10 unit (0.1 mL) sub cut QPM #15 mL 10/01/24 10/19/24 (3 mL) subcutaneous pen insulin lispro 100 unit/mL 5 unit (0.05 mL) subcut TID WM #15 10/01/24 10/19/24 subcutaneous pen (Humalog KwikPen mL (U-100) Insulin) Allergies Allergies Allergy/AdvReac Type Severity Reaction Status Date / Time No Known Drug Allergies Allergy Verified 10/19/24 17:17 PFSH Active Problems All Active Problems (Updated 10/19/24 @ 19:09 by Dmitriy Shine MD) Cellulitis of left foot (Acute) Non-pressure chronic ulcer of other part of left foot with muscle involvement without evidence of necrosis (Acute) Non-pressure chronic ulcer of other part of left foot with bone involvement without evidence of necrosis (Acute) Type 2 diabetes mellitus with foot ulcer (Acute) Do not resuscitate (Acute) Noncompliance (Acute) Non-pressure chronic ulcer left lower leg, limited to breakdown skin (Acute) Non-pressure chronic ulcer right lower leg, limited to breakdown skin (Acute) Diabetic foot ulcer associated with diabetes mellitus due to underlying condition (Acute) Type 2 diabetes mellitus with hyperglycemia (Acute) Medical History Medical History (Updated 10/19/24 @ 19:09 by Dmitriy Shine MD) Venous insufficiency of both lower extremities Non-ST elevation DE (NSTEMI) Congestive heart failure Hypertension Generalized weakness Social History Social History (Updated 09/29/24 @ 20:46 by Yanna Aguilar MD) Smoking Status: Former smoker If you are a former smoker, when did you quit? (Date/Year): 1970 Number of Years Smoked: 35 How many cigarettes a day do you smoke? (20 cigarettes=1 Pk): 80 Second hand tobacco smoke exposure: No Living arrangement: At home Living Condition: With spouse/s.o. Level: Dependent Do you feel safe in your home environment?: Yes History of physical, verbal, emotional, or financial abuse?: No Substance Use: over the counter (eg: immodium) Substance Use Details: ASA POLST Patient has POLST: Yes Exam Exam Vital Signs: Vital Signs x48h Temp Pulse Resp BP Pulse Ox 10/19/24 17:17 36.9 C 89 16 101/57 L 93 Constitutional normal general appearance and no apparent distress HENMT oropharynx normal moist mucous membranes Eyes PERRL Neck/C-Spine visual inspection normal Respiratory breath sounds equal bilaterally, normal respiratory effort and clear to auscultation bilaterally Cardiovascular normal heart rate noted and regular rhythm noted Gastrointestinal abdomen normal to inspection, abdomen soft to palpation, nontender to palpation and nondistended Extremities L foot - Erythema and swelling to the left foot from the toes to the ankle. There is an open wound that has been recently debrided and packed by wound care earlier today. Neurovascular intact. Neurology speech normal Psychiatry mental status grossly normal and oriented x3 Skin skin color normal Results Vitals Vitals: Vital Signs - 24 hr 10/19/24 15:42 10/19/24 15:46 10/19/24 17:17 Temperature 36.9 C Temperature Source Oral Pulse Rate 89 Respiratory Rate 16 Blood Pressure 101/57 L O2 Saturation 93 O2 Source Room air Room air Pain Intensity 6 6 Pain Intensity [#6 L great toe] 0 Pain Intensity [#7 L lateral plantar foot] 6 Oxygen O2 Source Room air Labs Labs: Microbiology 10/19/24 20:00 Wound Culture - Preliminary Foot - Left Laboratory Tests 10/19/24 10/19/24 18:25 19:30 WBC 14.6 H RBC 4.54 L Hgb 11.0 L Hct 35.7 L MCV 78.6 L MCH 24.2 L MCHC 30.8 L RDW 19.3 H Plt Count 279 MPV 9.4 Neut # (Auto) 11.7 H Lymph # (Auto) 1.5 Page # (Auto) 1.2 H Eos # (Auto) 0.1 Baso # (Auto) 0.1 Absolute Nucleated RBC 0.00 Nucleated RBC % 0.0 ESR 96 H Sodium 132 L Potassium 4.7 H Chloride 98 L Carbon Dioxide 27 Anion Gap 7.0 BUN 33 H Creatinine 1.3 Estimated GFR (MDRD) 54 L Glucose 121 H Lactic Acid 1.1 Calcium 9.9 Total Bilirubin 0.7 AST 16 ALT 14 Alkaline Phosphatase 81 C-Reactive Protein 18.1 H Total Protein 8.0 Albumin 3.7 Globulin 4.3 H Albumin/Globulin Ratio 0.9 L PD Medical Decision Making ED course Complexity details: reviewed results, re-evaluated patient, considered differential and d/w patient ED course: 73-year-old male with an ongoing chronic plantar diabetic foot wound. Has an elevated white blood cell count here. Reported fevers at home. Will place back on IV antibiotics, vancomycin and Zosyn. CRP and sed rate are elevated as well. Wound culture obtained. Discussed the case with the hospitalist who accepts. No acute findings on x-ray of the left foot. This document was made in part using voice recognition software. While efforts are made to proofread this document, sound alike and grammatical errors may oc cur. Discharge Plan Discharge Patient Disposition: ED Place in Observation Clinical Impression: Cellulitis of left foot Type 2 diabetes mellitus with foot ulcer Qualifiers: Diabetes mellitus intermediate teacher insulin use: with intermediate teacher use Qualified Code(s): E11.621 - Type 2 diabetes mellitus with foot ulcer Interventions: ED Admission Assessment Last Done: 10/19/24 20:54 Vitals documented within 30 minutes of discharge?: Yes
--- NOTE | 2024-10-19 20:25 | XRAY Report ---
PROCEDURE: XR Foot 3+V LT INDICATIONS: chronic plantar wound TECHNIQUE: 3 views of the foot were acquired. COMPARISON: X-ray foot 09/29/2024 FINDINGS: Bones: No fractures or dislocations. No suspicious bony lesions. Scattered IP narrowing are present. Calcaneal spur. Soft tissues: No tibiotalar joint effusion. Achilles tendon appears normal. Progressive appearance of soft tissue wound underlying the metatarsal heads. IMPRESSION: Progressive appearance of plantar wound without underlying appearance of osteomyelitis. Reviewed by: Fariha Langston MD on 10/19/2024 8:24 PM PDT Approved by: Fariha Langston MD on 10/19/2024 8:24 PM PDT Station ID: [id number]
--- NOTE | 2024-10-19 20:36 | HISTORY & PHYSICAL EXAMINATION ---
Chief Complaint Chief Complaint Chief Complaint: Leg pain History of Present Illness Admitted From Admitted From:: Home with History Obtained From History obtained from: Patient interview History of Present Illness HPI Comment/Other: 73-year-old male with history of insulin-dependent diabetes, chronic venous insufficiency, who is being followed by the wound care clinic for multiple wounds on his left foot. He was admitted here from 09/25 through 10/02, and discharged on a course of Augmentin. He finished his course of antibiotics 2 weeks ago. He had an appointment at the wound care clinic today, and the provider there sent him to the emergency department due to reported fevers last night up to 101, generalized weakness progressing over the past week, and positive wound cultures In the ER, workup was remarkable for elevated CRP at 18.1 as well as WBC 14.6. Foot x-ray was performed which shows no concern for osteomyelitis. On review of wound cultures, it appears he is growing pansensitive staph Schleiferi, actinomyces, Finegoldia magna, as well as diphtheroid gram-positive bacilli Given his elevated WBC and CRP, failing recent course of antibiotics in the outpatient setting, hospitalist was contacted for observation for this complicated diabetic foot wound Meds/Allgy Home Medications Ambulatory Orders Medication Instructions Recorded Confirmed lisinopril 10 mg tablet (Zestril) 10 mg PO DAILY 04/1110/19/24 pen needle, diabetic 31 gauge x ##30 04/15/21 10/19/2402/11" Focus Factor 1 tab PO DAILY 07/10/2110/10 aspirin 81 mg tablet,delayed 81 mg PO DAILY 07/10/21 0 10/19/24 release gabapentin 300 mg capsule 300 mg PO QPM 09/09/2410/19 empagliflozin 10 mg tablet 10 mg PO DAILY #30 tabs 10/19/24 (Jardiance) furosemide 20 mg tablet 40 mg (2 x 20 mg) PO DAILY # 60 tabs 09/27/24 10/19/24 metoprolol succinate 25 mg 25 mg PO DAILY #30 tabs 10/19/24 tablet,extended release 24 hr metformin 1,000 mg tablet 1,000 mg PO BID 09/30/2412/03 insulin glargine-yfgn 100 unit/mL 10 unit (0.1 mL) sub cut QPM #15 mL 10/01/24 10/19/24 (3 mL) subcutaneous pen insulin lispro 100 unit/mL 5 unit (0.05 mL) subcut TID WM #15 10/01/24 10/19/24 subcutaneous pen (Humalog KwikPen mL (U-100) Insulin) Allergies Allergies Allergy/AdvReac Type Severity Reaction Status Date / Time No Known Drug Allergies Allergy Verified 10/19/24 17:17 PFSH Active Problems All Active Problems (Updated 10/19/24 @ 19:09 by Dmitriy Shine MD) Cellulitis of left foot (Acute) Non-pressure chronic ulcer of other part of left foot with muscle involvement without evidence of necrosis (Acute) Non-pressure chronic ulcer of other part of left foot with bone involvement without evidence of necrosis (Acute) Type 2 diabetes mellitus with foot ulcer (Acute) Do not resuscitate (Acute) Noncompliance (Acute) Non-pressure chronic ulcer left lower leg, limited to breakdown skin (Acute) Non-pressure chronic ulcer right lower leg, limited to breakdown skin (Acute) Diabetic foot ulcer associated with diabetes mellitus due to underlying condition (Acute) Type 2 diabetes mellitus with hyperglycemia (Acute) Medical History Medical History (Updated 10/19/24 @ 19:09 by Dmitriy Shine MD) Venous insufficiency of both lower extremities Non-ST elevation AL (NSTEMI) Congestive heart failure Hypertension Generalized weakness Social History Social History (Updated 09/29/24 @ 20:46 by Yanna Aguilar MD) Smoking Status: Former smoker If you are a former smoker, when did you quit? (Date/Year): 1969 Number of Years Smoked: 35 How many cigarettes a day do you smoke? (20 cigarettes=1 Pk): 80 Second hand tobacco smoke exposure: No Living arrangement: At home Living Condition: With spouse/s.o. Level: Dependent Do you feel safe in your home environment?: Yes History of physical, verbal, emotional, or financial abuse?: No Substance Use: over the counter (eg: immodium) Substance Use Details: ASA POLST Patient has POLST: Yes Review of Systems Constitutional Reports: Fever and Chills Cardiovascular Denies: Irregular heart rate, chest pain, palpitations or shortness of breath with exertion Respiratory Denies: Shortness of breath Gastrointestinal Denies: Abdominal pain Integumentary/Breast Reports: Other (Wound on bottom of left foot and in left first toenail bed) Neurological Reports: General weakness Exam Exam Vital Signs: Vital Signs x48h Temp Pulse Resp BP Pulse Ox 10/19/24 17:17 36.9 C 89 16 101/57 L 93 Constitutional Elderly male in some discomfort, hyperactive HENMT normocephalic and head/scalp atraumatic Eyes PERRL Respiratory breath sounds equal bilaterally and normal respiratory effort Cardiovascular normal heart rate noted and regular rhythm noted Gastrointestinal abdomen normal to inspection and abdomen soft to palpation Extremities Tunneling wound on the bottom of his left foot. Dressing in place on left first toe from toenail removal. Reference wound care photos Neurology GCS 15 Psychiatry oriented x3 Skin Wound as mentioned above Conclusion/Plan Problem List (1) Diabetic foot ulcer associated with diabetes mellitus due to underlying condition: Plan: Patient presents with generalized weakness progressing over the past week as well as fevers x 1 day. Reports redness in his left lower leg. This is in spite of his completed course of Augmentin Wound cultures are positive for multiple pathogens including staph schleiferi, Finegoldia magna, actinomyces, and unspecified diphtheroid gram-positive bacilli In reviewing these cultures, most of the pathogens growing on prior cultures should have been susceptible to the Augmentin that he was discharged on. It is possible that the diptheroid bacilli could be resistant. As such, I am starting the patient on Zosyn and vancomycin Anticipate discharge on Augmentin and linezolid Check CRP in a.m. X-ray foot with no concern for osteomyelitis I am ordering an MRI of the foot Qualifiers: Diabetic foot ulcer location: midfoot Laterality: left Non-pressure ulcer stage: with necrosis of muscle Qualified Code(s): E08.621 - Diabetes mellitus due to underlying condition with foot ulcer; L97.423 - Non-pressure chronic ulcer of left heel and midfoot with necrosis of muscle (2) Type 2 diabetes mellitus with hyperglycemia: Plan: A1c was 8.1 in September Preliminary home med list shows he is on metformin, Jardiance,, Lantus, mealtime insulin Glucose was 121 on presentation SSI for now, will update med list to reflect home regimen after pharmacy review Qualifiers: Diabetes mellitus mcfp insulin use: without mcfp use Q ualified Code(s): E11.65 - Type 2 diabetes mellitus with hyperglycemia Plan Placed in observation DNR/DNI His is his surrogate decision maker and DPOA POLST reflects this Lab Results Lab results reviewed: Yes 10/19/24 18:25 10/19/24 18:25 Core Measures Anticipated LOS I expect patient to be DC'd or transferred within 96 hours.: Yes DVT/VTE - Prophylaxis VTE/DVT Prophylaxis med ordered at admit?: Yes
[2024-10-19] MEDS ORDERED: SODIUM CHLORIDE FLUSH 0.9% 10 ML SYRINGE IVP PRN (21:01)
[2024-10-19] MEDS ORDERED: ONDANSETRON 4 MG/2 ML VIAL IVP PRN (21:01)
[2024-10-19] MEDS: PIPERACILLIN/TAZOBACTAM 3.375 GM in SODIUM CHLORIDE 0.9% MINIBAG 100 ML IV ONE (22:58)
[2024-10-19] MEDS: SODIUM CHLORIDE 0.9% 1,000 ML IV SCH (23:03)
[2024-10-19] MEDS: VANCOMYCIN INJ 2 GM in SODIUM CHLORIDE 0.9% 500 ML IV ONE (23:04)
[2024-10-19] MEDS: HYDROmorphone 0.5 MG/0.5 ML SYRINGE IVP PRN (23:10)
[2024-10-20] MEDS: SODIUM CHLORIDE FLUSH 0.9% 10 ML SYRINGE IVP SCH (00:36)
[2024-10-20] MEDS: PIPERACILLIN/TAZOBACTAM 3.375 GM in SODIUM CHLORIDE 0.9% 100ML 100 ML IV SCH ×2 (02:19→02:48)
[2024-10-20 04:56] LABS: HCT - HEMATOCRIT 33.4 % (42.0-52.0); HGB - HEMOGLOBIN 9.9 g/dL (14.0-18.0); MEAN PLATELET VOLUME 9.3 fL (7.4-11.4); NRBC ABSOLUTE COUNT (AUTO) 0.00 x10^3/uL; NUCLEATED RED BLOOD CELLS AUTO 0.0 /100WBC; PLT - PLATELET COUNT 245 10^3/uL (130-450); RED CELL DISTRIBUTION WIDTH 19.0 % (12.0-15.0)
[2024-10-20 05:14] LABS: BUN - BLOOD UREA NITROGEN 31.0 mg/dL (6-20); CARBON DIOXIDE - CO2 27.0 mmol/L (21-32); CREATININE 1.2 mg/dL (0.6-1.3); CRP - C-REACTIVE PROTEIN 17.2 mg/dL (<0.5); GFR - MDRD 59.0 (>89)
--- NOTE | 2024-10-20 07:08 | PHARMACY PROGRESS NOTE ---
Vancomycin Therapy Monitoring Patient Information Vancomycin Pt Height (inches): 67 Vancomycin Patient Weight (kg): 105 Vanco Rx Serum Creatinine (mg/dL): 1.2 Vancomycin Therapy BUN (mg/dL): 31 Vancomycin Therapy Calculated Creatinine Cl (ml/min): 80 Concurrent Antibiotics: ZOSYN Vancomycin Therapy Goals Treatment Indication: DIABETIC FOOT ULCER Vancomycin Target Range: Vancomycin AUC Target Range 400-600 mcg*h/ml Assessment of Current Therapy Vancomycin Loading Dose (GM, if applicable): 2G Current Vancomycin Maintenance Regimen (if applicable): 1G Q12H Vancomycin Current Regimen: Subtherapeutic Levels Estimated Cmax (Peak, mcg/ml): 27.7 Estimated Cmin (Trough, mcg/ml): 18.8 Estimated AUC (mcg*hr/ml): 552 Plan: Pharmacy recommendation: Continue current regimen
[2024-10-20] MEDS: INSULIN LISPRO 300 UNIT/3 ML PEN SUBQ SCH ×2 (08:23→12:16)
[2024-10-20] MEDS: PATIENT OWN MED (JARDIANCE 10MG) PO SCH (08:24)
[2024-10-20] MEDS: ENOXAPARIN 40 MG/0.4 ML SYRINGE SUBQ SCH (09:17)
[2024-10-20] MEDS: FUROSEMIDE 40 MG TABLET PO SCH (09:17)
[2024-10-20] MEDS: METOPROLOL SUCCINATE 25 MG TABLET PO SCH (09:17)
[2024-10-20] MEDS: ASPIRIN EC 81 MG TABLET PO SCH (09:17)
[2024-10-20] MEDS: ACETAMINOPHEN 325 MG TABLET PO PRN (09:17)
--- NOTE | 2024-10-20 10:13 | PROVIDER PROGRESS NOTE ---
Subjective Subjective Subjective: Patient states that he does not have much pain in his left foot. He states that he has had some ongoing fevers and chills overnight. He states he has been allegedly compliant with his medication routine at home. He did complete his previous antibiotic course. Current Medications Current Medications Current Medications: Current Medications Generic Name Dose Route Start Last Admin Trade Name Freq PRN Reason Stop Dose Admin Acetaminophen 650 mg 10/19/24 21:01 10/20/24 09:17 Acetaminophen 325 Mg Tablet PO 650 mg Q4HR PRN Administration Pain 1 to 4, or Fever Aspirin 81 mg 10/20/24 09:00 10/20/24 09:17 Aspirin Ec 81 Mg Tablet PO 81 mg DAILY DIMA Administration Enoxaparin Sodium 40 mg 10/20/24 09:00 10/20/24 09:17 Enoxaparin 40 Mg/0.4 Ml Syringe SUBQ 40 mg DAILY DIMA Administration Furosemide 40 mg 10/20/24 09:00 10/20/24 09:17 Furosemide 40 Mg Tablet PO 40 mg DAILY DIMA Administration Gabapentin 300 mg 10/20/24 21:00 Gabapentin 300 Mg Capsule PO QPM DIMA Hydromorphone HCl 0.5 mg 10/19/24 21:21 10/20/24 06:08 Hydromorphone 0.5 Mg/0.5 Ml Syringe IVP 0.5 mg Q2H PRN Administration Severe Pain (Level 7-10) Sodium Chloride 1,000 mls @ 100 mls/hr 10/19/24 21:01 10/20/24 07:58 Normal Saline 0.9% IV 10/21/24 03:00 100 mls/hr .Q10H DIMA Administration Piperacillin Sod/Tazobactam 100 mls @ 25 mls/hr 10/20/24 02:00 10/20/24 09:18 Sod 3.375 gm/ Sodium Chloride IV 25 mls/hr Q8H DIMA Administration Vancomycin HCl 1 gm/ Sodium 250 mls @ 167 mls/hr 10/20/24 11:00 Chloride IV Q12H DIMA Insulin Glargine-yfgn 10 unit 10/20/24 21:00 Insulin Glargine-Yfgn 300 Unit/3 Ml Pen SUBQ QPM DIMA Insulin Human Lispro 1 - 9 unit 10/20/24 08:00 10/20/24 08:23 Insulin Lispro 300 Unit/3 Ml Pen SUBQ Not Given 0800,1200,1700,2100 [facility] Protocol Insulin Human Lispro 5 unit 10/20/24 12:00 Insulin Lispro 300 Unit/3 Ml Pen SUBQ TIDWM [facility] Metoprolol Succinate 25 mg 10/20/24 09:00 10/20/24 09:17 Metoprolol Succinate 25 Mg Tablet PO 25 mg DAILY [facility] Administration Ondansetron HCl 4 mg 10/19/24 21:01 Ondansetron Odt 4 Mg Tablet TL Q6HR PRN Nausea / Vomiting Ondansetron HCl 4 mg 10/19/24 21:01 Ondansetron 4 Mg/2 Ml Vial IVP Q6HR PRN Nausea / Vomiting Patient Own Med ( 1 each 10/20/24 09:00 10/20/24 08:24 Jardiance 10mg) PO Not Given DAILY [facility] Sodium Chloride 10 ml 10/19/24 21:01 Sodium Chloride Flush 0.9% 10 Ml Syringe IVP PRN PRN NEEDED PER PROVIDER ORDERS Sodium Chloride 10 ml 10/20/24 01:00 10/20/24 09:17 Sodium Chloride Flush 0.9% 10 Ml Syringe IVP 10 ml 0100,0900,1700 [facility] Administration Objective Vital Signs/Intake & Output Reviewed Vital Signs: Yes Vital Signs: Vital Signs x48h Temp Pulse Resp BP Pulse Ox 10/20/24 08:18 98.1 F 84 18 96/56 L 95 10/20/24 04:10 97.9 F 93 20 109/63 96 Intake & Output: Intake & Output 10/17/24 10/18/24 10/19/24 10/20/24 23:59 23:59 23:59 23:59 Intake Total 250 / 250 1492 / 1492 Output Total 300 / 300 200 / 200 Balance -50 / -50 1292 / 1292 Weight (kg) 105 kg Objective General Appearance: positive Alert, Mild distress and Other (Mild respiratory distress, with some belly breathing noted.); negative No acute distress or Anxious Eyes Bilateral: positive Normal inspection, PERRL and EOMI ENT: positive ENT inspection nml and Pharynx nml Neck: positive Nml inspection, Thyroid nml and No JVD Respiratory: positive Chest non-tender and Other (Mild bibasilar crackles noted, right worse than left); negative Wheezes or Rales Cardiovascular: positive Regular rate & rhythm, No murmur and No gallop; negative Tachycardia or Systolic murmur Abdomen: positive Non-tender, No organomegaly and No distention; negative Guarding or Splenomegaly Back: positive Nml inspection; negative CVA tenderness (R) or CVA tenderness (L) Skin: positive Dry Extremities: positive Other (2+ pitting edema, hyperpigmentation due to stasis changes, left lower extremity with open wound with no active purulence noted) Neurologic/Psychiatric: positive Oriented x3, Motor nml and Mood/affect nml Lab Results 10/20/24 04:48 10/20/24 04:48 Other Labs: Lab Results x24hrs 10/20/24 10/20/24 10/19/24 Range/Units 07:36 04:48 21:02 WBC 11.2 H (4.8-10.8) x10^3/uL RBC 4.15 L (4.70-6.10) 10^6/uL Hgb 9.9 L (14.0-18.0) g/dL Hct 33.4 L (42.0-52.0) % MCV 80.5 (80.0-94.0) fL MCH 23.9 L (27.0-31.0) pg MCHC 29.6 L (32.0-36.0) g/dL RDW 19.0 H (12.0-15.0) % Plt Count 245 (130-450) 10^3/uL MPV 9.3 (7.4-11.4) fL Neut # (Auto) 8.0 H (1.5-6.6) 10^3/uL Lymph # (Auto) 1.8 (1.5-3.5) 10^3/uL Saunders # (Auto) 1.1 H (0.0-1.0) 10^3/uL Eos # (Auto) 0.1 (0.0-0.7) 10^3/uL Baso # (Auto) 0.1 (0.0-0.1) 10^3/uL Absolute Nucleated RBC 0.00 x10^3/uL Nucleated RBC % 0.0 /100WBC ESR (0-20) mm/Hr Sodium 136 (135-145) mmol/L Potassium 3.9 (3.5-4.5) mmol/L Chloride 101 (101-111) mmol/L Carbon Dioxide 27 (21-32) mmol/L Anion Gap 8.0 (6-13) BUN 31 H (6-20) mg/dL Creatinine 1.2 (0.6-1.3) mg/dL Estimated GFR (MDRD) 59 L (>89) Glucose 74 (74-104) mg/dL POC Whole Bld Glucose 81 90 (70-100) mg/dL Lactic Acid (0.5-2.2) mmol/L Calcium 9.2 (8.5-10.3) mg/dL Total Bilirubin (0.2-1.0) mg/dL AST (10-42) IU/L ALT (10-60) IU/L Alkaline Phosphatase (42-121) IU/L C-Reactive Protein 17.2 H (<0.5) mg/dL Total Protein (6.4-8.9) g/dL Albumin (3.2-5.5) g/dL Globulin (2.1-4.2) g/dL Albumin/Globulin Ratio (1.0-2.2) 10/19/24 10/19/24 Range/Units 19:30 18:25 WBC 14.6 H (4.8-10.8) x10^3/uL RBC 4.54 L (4.70-6.10) 10^6/uL Hgb 11.0 L (14.0-18.0) g/dL Hct 35.7 L (42.0-52.0) % MCV 78.6 L (80.0-94.0) fL MCH 24.2 L (27.0-31.0) pg MCHC 30.8 L (32.0-36.0) g/dL RDW 19.3 H (12.0-15.0) % Plt Count 279 (130-450) 10^3/uL MPV 9.4 (7.4-11.4) fL Neut # (Auto) 11.7 H (1.5-6.6) 10^3/uL Lymph # (Auto) 1.5 (1.5-3.5) 10^3/uL Saunders # (Auto) 1.2 H (0.0-1.0) 10^3/uL Eos # (Auto) 0.1 (0.0-0.7) 10^3/uL Baso # (Auto) 0.1 (0.0-0.1) 10^3/uL Absolute Nucleated RBC 0.00 x10^3/uL Nucleated RBC % 0.0 /100WBC ESR 96 H (0-20) mm/Hr Sodium 132 L (135-145) mmol/L Potassium 4.7 H (3.5-4.5) mmol/L Chloride 98 L (101-111) mmol/L Carbon Dioxide 27 (21-32) mmol/L Anion Gap 7.0 (6-13) BUN 33 H (6-20) mg/dL Creatinine 1.3 (0.6-1.3) mg/dL Estimated GFR (MDRD) 54 L (>89) Glucose 121 H (74-104) mg/dL POC Whole Bld Glucose (70-100) mg/dL Lactic Acid 1.1 (0.5-2.2) mmol/L Calcium 9.9 (8.5-10.3) mg/dL Total Bilirubin 0.7 (0.2-1.0) mg/dL AST 16 (10-42) IU/L ALT 14 (10-60) IU/L Alkaline Phosphatase 81 (42-121) IU/L C-Reactive Protein 18.1 H (<0.5) mg/dL Total Protein 8.0 (6.4-8.9) g/dL Albumin 3.7 (3.2-5.5) g/dL Globulin 4.3 H (2.1-4.2) g/dL Albumin/Globulin Ratio 0.9 L (1.0-2.2) Assessment/Plan Problem List (1) 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 Wound cultures were reviewed by wound care doctorshowed Staphylococcus schleiferi and actinomyces neuii. Concern for underlying osteomyelitis. Continue IV vancomycin and Zosyn at this time. Leukocytosis is improving. Patient has been afebrile during his stay here. MRI of the foot has been ordered, pending. If it does show osteomyelitis, will likely need transfer for podiatry evaluation. Qualifiers: Diabetic foot ulcer location: midfoot Laterality: left Non-pressure ulcer stage: with necrosis of muscle Qualified Code(s): E08.621 - Diabetes mellitus due to underlying condition with foot ulcer; L97.423 - Non-pressure chronic ulcer of left heel and midfoot with necrosis of muscle (2) Type 2 diabetes mellitus with hyperglycemia: Impression: Continue home insulin regimenglargine 10 units at night, 5 units of lispro with meals as well as a sliding scale. 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 He has not followed up with a fruit grower at this time. Blood pressures are borderline. Hold lisinopril. Continue metoprolol, Jardiance, Lasix. Qualifiers: Heart failure chronicity: unspecified Heart failure type: unspecified Qualified Code(s): I50.9 - Heart failure, unspecified
[2024-10-20] MEDS: VANCOMYCIN INJ 1 GM in SODIUM CHLORIDE 0.9% 250 ML IV SCH (12:09)
--- NOTE | 2024-10-20 14:47 | PHARMACY PROGRESS NOTE ---
Best Possible Medication History Admit Date and Time: 10/20/24 1219 Home Medications Medication Instructions Recorded Confirmed Type lisinopril 10 mg tablet (Zestril) 10 mg PO DAILY 04/1110/19/24 History pen needle, diabetic 31 gauge x ##30 04/15/21 10/19/24 Rx 1/3" aspirin 81 mg tablet,delayed 81 mg PO DAILY 07/10/21 0 10/19/24 History release gabapentin 300 mg capsule 300 mg PO QPM 09/09/2410/19 History empagliflozin 10 mg tablet 10 mg PO DAILY #30 tabs 10/19/24 Rx (Jardiance) furosemide 20 mg tablet 40 mg (2 x 20 mg) PO DAILY # 60 tabs 09/27/24 10/19/24 Rx metoprolol succinate 25 mg 25 mg PO DAILY #30 tabs 10/19/24 Rx tablet,extended release 24 hr metformin 1,000 mg tablet 1,000 mg PO BID 09/30/2412/03 History aspirin 325 mg tablet 325 mg PO DAILY PRN pain 01/0310/20/24 History insulin glargine 100 unit/mL (3 80 unit subcut QAM 01/0310/20/24 History mL) subcutaneous pen (Lantus Solostar U-100 Insulin) Processed by: Pharmacy Medications reviewed in ED?: No Medication History completed: Yes Patient Interview: Pt unable to participate Secondary Source(s): Pharmacy records and Insurance records [facility] Statement: As the person ultimately responsible for medication therapy, providers are able to order a medication from an existing home medication list in [facility] via the "Reconcile Routine" prior to Confirmation of that medication by software support technician. Such practice is discouraged except when the physician, in their clinical judgm ent, deems that a medical need exists for a medication without regard to previous use.
[2024-10-20] MEDS ORDERED: GADOTERATE MEGLUMINE 10 MMOL/20 ML VIAL ONE (17:43)
[2024-10-20] MEDS ORDERED: GADOTERATE MEGLUMINE 5 MMOL/10 ML VIAL ONE (17:43)
--- NOTE | 2024-10-20 19:32 | MRI Report ---
PROCEDURE: MRI Foot LT WO INDICATIONS: infected diabetic ulcer TECHNIQUE: Multisequence MRI of the foot was performed without contrast. COMPARISON: None. FINDINGS: Image quality: Most of the images are nondiagnostic due to motion Bones: No definite fracture related edema. On the fused series with less motion artifact, there is no discrete bone marrow signal abnormality on T1-weighted images. Mild edema is seen in the second proximal phalanx. Soft tissues: Plantar wound is seen, adjacent to the metatarsal heads. Soft tissue gas is present. Associated edema is seen on T2-weighted images. Mild diffuse muscle edema. More focal fluid is present along the extensor surfaces dorsal to the metatarsals, particularly along the second ray. IMPRESSION: Nearly nondiagnostic MRI due to motion. Plantar wound is present. There is no confluent area of intrinsic T1 signal loss to suggest necrotic bone/osteomyelitis. Adjacent plantar intrinsic foot muscle edema, likely myositis. Mild edema is seen in the second proximal phalanx, which may be reactive. More focal fluid is seen along the adjacent extensor tendons along the distal metatarsals, particularly at the second ray, likely tenosynovitis or pyotenosynovitis. Reviewed by: Jim Monroy MD on 10/20/2024 7:31 PM PDT Approved by: Jim Monroy MD on 10/20/2024 7:31 PM PDT Station ID: [id number]
[2024-10-20] MEDS: GABAPENTIN 300 MG CAPSULE PO SCH (21:45)
[2024-10-20] MEDS: INSULIN GLARGINE-YFGN 300 UNIT/3 ML PEN SUBQ SCH (21:45)
[2024-10-21 05:38] LABS: HCT - HEMATOCRIT 33.5 % (42.0-52.0); HGB - HEMOGLOBIN 10.0 g/dL (14.0-18.0); MEAN PLATELET VOLUME 9.5 fL (7.4-11.4); NRBC ABSOLUTE COUNT (AUTO) 0.00 x10^3/uL; NUCLEATED RED BLOOD CELLS AUTO 0.0 /100WBC; PLT - PLATELET COUNT 230 10^3/uL (130-450); RED CELL DISTRIBUTION WIDTH 18.9 % (12.0-15.0)
[2024-10-21 05:52] LABS: BUN - BLOOD UREA NITROGEN 25.0 mg/dL (6-20); CARBON DIOXIDE - CO2 25.0 mmol/L (21-32); CREATININE 1.1 mg/dL (0.6-1.3); GFR - MDRD 65.0 (>89)
--- NOTE | 2024-10-21 09:47 | CT Report ---
PROCEDURE: CT Lower Extremity LT W INDICATIONS: rule out osteomyelitis - unable to tolerate MRI TECHNIQUE: After administration of contrast 3 mm axial sections acquired of the left foot, with coronal and sagittal reformats. For radiation dose reduction, the following was used: automated exposure control, adjustment of mA and/or kV according to patient size. CONTRAST: [id number] 100mL intravenous COMPARISON: Left foot radiograph 10/19/2024 and MR 10/20/2024 FINDINGS: Image quality: Images are mildly degraded by patient motion on and repeat scanning was performed. Diagnostic information is obtained. Bones: No acute osseous fracture or dislocation. No focal cortical destruction or erosion is seen to suggest osteomyelitis by CT, although CT findings may lag behind MR findings for osteomyelitis. No suspicious osseous lesion. Small posterior and plantar calcaneal enthesophytes. Soft tissues: Skin ulceration is seen at the plantar aspect of the foot at the level of the distal metatarsals with a gas-filled soft tissue tract extending into the subcutaneous tissues. Additional small foci of gas are seen in the adjacent musculature and in the 1st intermetatarsal space more dorsally. A small amount of peripherally enhancing fluid is seen in the region of the abductor hallucis muscle, which measures up to 1.5 cm in maximum dimension. There is ill- defined fluid in the 1st intermetatarsal space. Mild fatty infiltration of the plantar foot musculature compatible with chronic denervation changes. The articular cartilages, ligaments, tendons are not well evaluated with CT. IMPRESSION: 1.Skin ulceration at the plantar aspect of the forefoot with fluid and gas tracking dorsally along the plantar foot musculature and dorsally into the 1st intermetatarsal space. Small peripherally enhancing fluid collection in the abductor muscles muscle is suspicious for developing abscess. 2.No CT signs of osteomyelitis. Reviewed by: Juan Manuel Hernandez MD on 10/21/2024 9:46 AM PDT Approved by: Juan Manuel Hernandez MD on 10/21/2024 9:46 AM PDT Station ID: [id number]
--- NOTE | 2024-10-21 11:34 | Discharge Summary ---
Discharge Summary Admit Date: 10/19/24 Discharge Date: 10/21/24 Discharging Provider: Dr. Martha Odell Primary Care Provider: Narendra Kam Code Status: Do Not Attempt Resuscitation Discharge Facility Name: Transfer to [facility] DIAGNOSES Discharge Diagnoses with Status of Each Condition: Diabetic foot ulcer associated with diabetes mellituspatient presented to the wound care clinic and diabetic ulcer with probing to the bone showed extensive undermining and bogginess to the plantar also. MRI was attempted yesterday, but due to motion artifact, this study was largely nondiagnostic. CT with contrast was repeated today, and there does appear to be tenosynovitis, infection, no evidence of osteomyelitis was seen. I spoke with state manager, Dr. Morales at [facility] about transfer for podiatry evaluation, likely debridement. They excepted the patient, and patient will be transferred to the hospitalist service. Type 2 diabetes mellituscontinue home insulin [id number] units of glargine at night, 5 units of lispro with meals. Congestive heart failurecontinue GDMT as patient was taking at home with metoprolol, Jardiance, Lasix, lisinopril. HPI History of Present Illness: Richi Sultana: 73-year-old male with history of insulin-dependent diabetes, chronic venous insufficiency, who is being followed by the wound care clinic for multiple wounds on his left foot. He was admitted here from 09/25 through 10/02, and discharged on a course of Augmentin. He finished his course of antibiotics 2 weeks ago. He had an appointment at the wound care clinic today, and the provider there sent him to the emergency department due to reported fevers last night up to 101, generalized weakness progressing over the past week, and positive wound cultures In the ER, workup was remarkable for elevated CRP at 18.1 as well as WBC 14.6. Foot x-ray was performed which shows no concern for osteomyelitis. On review of wound cultures, it appears he is growing pansensitive staph Schleiferi, actinomyces, Finegoldia magna, as well as diphtheroid gram-positive bacilli Given his elevated WBC and CRP, failing recent course of antibiotics in the outpatient setting, hospitalist was contacted for observation for this complicated diabetic foot wound CONSULTS | PROCEDURES Consultations: Podiatry, Dr. Meadows at [facility] Procedures: X-ray of the foot, MRI of the foot, CT with contrast of foot HOSPITAL COURSE Hospital Course: Patient is a 73-year-old gentleman with a history of new diagnosed heart failure, insulin-dependent diabetes mellitus who has been dealing with a chronic diabetic ulcer. He was recently admitted and discharged on oral antibiotics. He went to his first wound care clinic appointment and was sent directly to the ER as there was concerns for sepsis and osteomyelitis. Initial x-ray did not show this. MRI of the foot was ordered, but unfortunately due to motion artifact, was not conclusive. CT of the foot with contrast was done, and although it did not show any osteomyelitis, did show some swelling, fluid collections, as well as inflammation of the tendons. I spoke with state manager at [facility], and they recommend transfer for possible surgical debridement and intervention. While here, he was maintained on vancomycin and Zosyn. His white count did come down, and he was afebrile the whole time. Plan is to transfer to [facility] for further management with podiatry. ALLERGIES Allergies Allergy/AdvReac Type Severity Reaction Status Date / Time No Known Drug Allergies Allergy Verified 10/19/24 17:17 MEDICATIONS Ambulatory Orders Medication Instructions Recorded Confirmed lisinopril 10 mg tablet (Zestril) 10 mg PO DAILY 04/1110/19/24 pen needle, diabetic 31 gauge x ##30 04/15/21 10/19/24/" aspirin 81 mg tablet,delayed 81 mg PO DAILY 07/10/21 0 10/19/24 release gabapentin 300 mg capsule 300 mg PO QPM 09/09/2410/19 empagliflozin 10 mg tablet 10 mg PO DAILY #30 tabs 10/19/24 (Jardiance) furosemide 20 mg tablet 40 mg (2 x 20 mg) PO DAILY # 60 tabs 09/27/24 10/19/24 metoprolol succinate 25 mg 25 mg PO DAILY #30 tabs 10/19/24 tablet,extended release 24 hr metformin 1,000 mg tablet 1,000 mg PO BID 09/30/2412/03 aspirin 325 mg tablet 325 mg PO DAILY PRN pain 01/0310/20/24 insulin glargine 100 unit/mL (3 80 unit subcut QAM 01/0310/20/24 mL) subcutaneous pen (Lantus Solostar U-100 Insulin) PHYSICAL EXAM AT DISCHARGE Vital Signs: Vital Signs x48h Temp Pulse Resp BP Pulse Ox 10/21/24 16:14 97.9 F 74 24 111/69 98 10/21/24 11:46 97.7 F 94 20 128/83 98 General Appearance: positive Alert, Mild distress and Other (Mild respiratory distress, with some belly breathing noted.); negative No acute distress or Anxious Eyes Bilateral: positive Normal inspection, PERRL and EOMI ENT: positive ENT inspection nml and Pharynx nml Neck: positive Nml inspection, Thyroid nml and No JVD Respiratory: positive Chest non-tender and Other (Mild bibasilar crackles noted, right worse than left); negative Wheezes or Rales Cardiovascular: positive Regular rate & rhythm, No murmur and No gallop; negative Tachycardia or Systolic murmur Abdomen: positive Non-tender, No organomegaly and No distention; negative Guarding or Splenomegaly Back: positive Nml inspection; negative CVA tenderness (R) or CVA tenderness (L) Skin: positive Dry Extremities: positive Other (2+ pitting edema, hyperpigmentation due to stasis changes, left lower extremity with open wound with no active purulence noted) Neurologic/Psychiatric: positive Oriented x3, Motor nml and Mood/affect nml LABS 10/21/24 04:44 10/21/24 04:44 FOLLOW UP Follow Up: Transfer to [facility]. TIME SPENT Time Spent in Discharge (Minutes): 35 Discharge Plan Discharge Patient Disposition: 02 Transfer Acute Care Hosp Prescriptions: Continued lisinopril [Zestril] 10 MG tablet 10 mg PO DAILY Patient Comments: TAKE 1 TABLET BY MOUTH ONCE DAILY (DME) pen needle, diabetic 1 EACH needle 1 ea miscellaneous DAILY Qty: 30 0RF aspirin 81 MG tablet,delayed release (DR/EC) 81 mg PO DAILY gabapentin 300 mg capsule 300 mg PO QPM metoprolol succinate 25 mg Tablet Extended Release 24 Hr 25 mg PO DAILY Qty: 30 0RF Patient Comments: states new med patient hasn't started yet. Jardiance 10 mg tablet 10 mg PO DAILY Qty: 30 2RF Patient Comments: stated new med but hasn't started yet. furosemide 20 mg tablet 40 mg PO DAILY Qty: 60 0RF metformin 1,000 mg tablet 1,000 mg PO BID Patient Comments: TAKE 1 TABLET BY MOUTH TWICE DAILY WITH MEALS insulin glargine [Lantus Solostar U-100 Insulin] 100 unit/mL (3 mL) insulin pen 80 unit SUBCUT QAM Patient Comments: INJECT 80 UNITS SUBCUTANEOUSLY ONCE A DAY IN THE MORNING aspirin 325 mg tablet 325 mg PO DAILY PRN (Reason: pain) Activity Restrictions: Activity as Tolerated Diet: Diabetic Print Language: [place] Stand Alone Forms: PCP List Follow-up Care: Narendra Kam MD [Primary Care Provider, Internal Medicine] Vitals documented within 30 minutes of discharge?: Yes
[2024-10-21] MEDS: ONDANSETRON ODT 4 MG TABLET TL PRN (21:41)
[2024-10-21 23:41] VITALS: BP 130/62; TEMP 97.5; O2SAT 99
== END 2024-10-21 23:50 | disposition short-term general hospital (02) | DRG 638 ==
LOC: ED 16:51 → MS2 16:51
PROVIDERS: ADMIT Nurse Practitioner Acute Care; ATTEND Nurse Practitioner Acute Care
DX: E11.65 Type 2 diabetes mellitus with hyperglycemia; I87.2 Venous insufficiency (chronic) (peripheral); I11.0 Hypertensive heart disease with heart failure; L97.423 Non-pressure chronic ulcer of left heel and midfoot with necrosis of muscle; Z79.4 Long term (current) use of insulin; Z79.82 Long term (current) use of aspirin; Z79.84 Long term (current) use of oral hypoglycemic drugs; I25.2 Old myocardial infarction; E11.621 Type 2 diabetes mellitus with foot ulcer; Z79.899 Other long term (current) drug therapy; L03.116 Cellulitis of left lower limb; I50.9 Heart failure, unspecified; Z87.891 Personal history of nicotine dependence; Z66 Do not resuscitate